=== PATIENT | female | born 1950 | race Caucasian/White ===

== ENCOUNTER → 2017-04-26 07:20 | Outpatient (CLI) | payer MEDICARE, OTHER, SELFPAY ==
--- NOTE | 2017-04-26 07:23 | RAD_ITS ---
STUDY: X-RAY - ESOPHAGUS (BARIUM SWALLOW) WITH FLUOROSCOPY REASON FOR EXAM: Female, 66 years old. Heartburn. History of gastroesophageal reflux. TECHNIQUE: 16 view(s) of the esophagus were obtained following swallowing of barium. FLUOROSCOPY TIME (if supplied): (0:30) minutes/seconds COMPARISON: None. FINDINGS: There is no demonstrated esophageal foreign body. There is no demonstrated stricture or mucosal abnormality. There is a small hiatal hernia of the fundus of the stomach. There is no evidence of gastroesophageal reflux at this time. The patient ingested a 12 mm tablet of barium. The tablet is trapped at the gastroesophageal junction. There is atherosclerotic tortuosity of the aortic arch and descending thoracic aorta. Normal visualized pulmonary parenchyma. There are diffuse degenerative changes of the visualized thoracic spine. RAD/Esophagus Only IMPRESSION: Small sliding hiatal hernia without gastroesophageal reflux. The 12 mm tablet of barium is trapped at the gastroesophageal junction. Electronically Signed: Tyrell Kuhn MD at 8:19 EDT Tel [phone], Service support ,
== END ==
PROVIDERS: Family Provider Family Medicine; PCP Family Medicine; Visit Provider Otolaryngology
DX: K21.9 Gastro-esophageal reflux disease without esophagitis (principal)
CPT/HCPCS: 74220

== ENCOUNTER → 2017-10-19 13:05 | Outpatient (CLI) | payer MEDICARE, OTHER, SELFPAY ==
--- NOTE | 2017-10-19 14:43 | NEURO ---
NCS and/or EMG Patient Report Ordering Doctor: Uday Olivares DATE OF SERVICE: 10/19/17 Charo Ayala is a 67-year-old female presents for electrodiagnostic testing of the right upper limb. She reports pain at the base of the right thumb and around the wrist. Electrodiagnostic findings: Right median motor nerve demonstrates normal distal latency, amplitude and conduction velocity. Normal right ulnar motor response, including conduction across the elbow. Normal right median and ulnar f wave. Sensory responses within normal limits. Needle EMG testing shows no evidence of denervation with normal motor unit action potentials. Electrodiagnostic impression: This is a normal electrodiagnostic study of the right upper limb. There is no electrodiagnostic evidence for peripheral neuropathy or cervical radiculopathy. If there are any further questions, please do not hesitate to contact me.
== END ==
PROVIDERS: Family Provider Family Medicine; PCP Family Medicine; Visit Provider Orthopaedic Surgery
DX: R20.2 Paresthesia of skin (principal)
CPT/HCPCS: 95886; 95910

== ENCOUNTER → 2018-03-31 07:52 | Outpatient (CLI) | payer MEDICARE, OTHER, SELFPAY ==
[2018-01-16 08:42] VITALS: BMI 39.1
--- NOTE | 2018-03-31 07:56 | BI_ITS ---
MAMMOGRAPHY - BILATERAL SCREENING REASON FOR EXAM: Female, 67 years old. Routine annual screening examination. PERTINENT HISTORY: Non-contributory. TECHNIQUE: Digital bilateral breast deidre (3D mammographic acquisition) in the CC and MLO projections. 2-D mediolateral oblique (MLO) and craniocaudad (CC) views of both breasts were obtained. CAD: Full Field Digital Mammography with Computer Added Detection was performed. COMPARISON: Comparison is made with prior study dated February 10, 2017 and January 22, 2016. FINDINGS: Breast Composition: The breasts are heterogeneously dense, which may obscure small masses. There are no dominant masses or suspicious calcifications. No other significant abnormalities are identified. There has been no significant change since the prior study. BI/SCREENING MAMM (CAD), BILAT IMPRESSION: Stable bilateral screening mammogram. Yearly follow-up mammogram recommended. (A) ASSESSMENT CATEGORY: BIRADS Category 1: Negative. A letter regarding these results will be sent to the patient by the facility within 30 days. Approximately 10% of breast cancers are not detected by mammography. A normal mammogram should not delay biopsy of a clinically suspicious abnormality. [id number] Electronically Signed: Tyrell Kuhn MD at 9:01 EST , Service support ,
== END ==
PROVIDERS: Family Provider Family Medicine; PCP Family Medicine; Visit Provider Family Medicine
DX: Z12.31 Encounter for screening mammogram for malignant neoplasm of breast (principal)
CPT/HCPCS: 77063; 77067

== ENCOUNTER → 2018-08-15 16:44 | Outpatient (CLI) | payer MEDICARE, OTHER, SELFPAY ==
[2018-08-15 14:09] VITALS: BMI 39.1
[2018-08-20 13:53] LABS: HPV APTIMA, High Risk Negative (Negative)
== END ==
PROVIDERS: Family Provider Family Medicine; PCP Family Medicine; Referring Provider Nurse Practitioner Women's Health; Visit Provider Nurse Practitioner Women's Health
DX: Z12.4 Encounter for screening for malignant neoplasm of cervix (principal)
CPT/HCPCS: 87624; 88175; G0145

== ENCOUNTER → 2018-11-15 08:54 | Outpatient (CLI) | payer MEDICARE, OTHER, SELFPAY ==
[2018-08-15 14:09] VITALS: BMI 39.1
--- NOTE | 2018-11-15 10:18 | NEURO ---
NCS and/or EMG Patient Report Ordering Doctor: Heber Porter DATE OF SERVICE: 11/15/18 Charo Ayala is a 68-year-old female who presents for electrodiagnostic testing of the left upper limb. She reports numbness and tingling in the left hand, progressively worsening over the past month. Electrodiagnostic findings: Left median motor nerve demonstrates prolonged distal latency with normal amplitude and conduction velocity. Normal left ulnar motor response. Normal median ulnar F waves. Prolonged median sensory latency at the wrist. On needle EMG, all muscles tested in the left upper limb showed no evidence of denervation with normal motor unit action potentials. Next Electrodiagnostic impression: This is an abnormal study in the left upper limb. 1. Electrodiagnostic findings demonstrate left-sided median mononeuropathy. This is consistent with a mild left carpal tunnel syndrome. If there are any further questions, please do not hesitate to contact me.
== END ==
PROVIDERS: Family Provider Family Medicine; PCP Family Medicine; Referring Provider Specialist; Visit Provider Specialist
DX: R20.2 Paresthesia of skin (principal)
CPT/HCPCS: 95886; 95910

== ENCOUNTER 2018-11-29 06:49 | Day surgery (SDC) | payer MEDICARE, OTHER, SELFPAY ==
[2018-08-15 14:09] VITALS: BMI 39.1
--- NOTE | 2018-11-23 18:25 | HP.PCM_ITS ---
History and Physical Patient Name: Charo Ayala : 1950 From: DARBY LEDBETTER PA-C DATE OF SURGERY: 11/29/2018 SCHEDULED PROCEDURE: Left carpometacarpal arthroplasty and left carpal tunnel release HISTORY OF PRESENT ILLNESS: Preoperative history and physical exam was performed on November 23, 2018. This is a 68-year-old female who has been having ongoing pain in bilateral hands for approximately 2 years. Patient has had numbness and tingling in her left hand for the past 1 year. She has tried physical therapy and bracing. She continues to have numbness and tingling. She also has pain at the base of the first CMC joint. Pain can reach as high as a 9/10 with activity. Pain is increased with gripping activities, mopping, and weed eating. She does continue to have numbness and tingling in bilateral hands. She has tried cortisone injections. 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 Left EMG also reveals carpal tunnel syndrome. After failing conservative measures and discussing treatment options with Dr. Heber Porter, the patient does wish to proceed with a left carpometacarpal arthroplasty and left carpal tunnel release. Patient has medical history pertinent for sleep apnea and acid reflux. She currently denies chest pain, shortness of breath, fevers chills, or recent infections. REVIEW OF SYSTEMS: ROS: Const: Denies anorexia, anxiety, change in appetite, fever, hard of hearing, vision problems and weight change. CV: Denies chest pain, heart murmur, irregular heartbeat and peripheral vascular disease. Resp: Reports sleep apnea, but denies asthma, cough, pneumonia, SOB, tuberculosis and wheezing. GI: Reports heartburn, but denies constipation, diarrhea, difficulty swallowing, nausea, bloody stools and vomiting. : Urinary: denies incontinence. Musculo: Denies leg swelling, limp, trouble walking and weakness. Skin: Denies Raynaud's, history of shingles and tattoo. Neuro: Reports numbness/tingling in her hands, but denies ambulatory dysfunction, dizziness and tremor Psych: Denies anxiety, depression, insomnia, mental illness and stress. Donald/Lymph: Reports bleeding/bruising tendency, but denies anemia and past transfusion. Reviewed, no changes. PAST MEDICAL HISTORY: Advance Care Plan: Other Directive, LIVING WILL Effective Date: 02/11/2015 Other Directive, POA Effective Date: 02/11/2015 PMH: Medical Problems: Sleep Apnea, Acid Reflux Accidents: Fracture - RIGHT WRIST Surgical Hx: Tonsillectomy - [facility] Section - X2 LT Knee Arthroscopy - (05/08/2009) [facility] @ [facility] LT Uni-Knee - (09/15/2010) [facility]OR @ [facility] RT Knee Arthroscopy - (12/13/2013) [email or web address] Mole Removed - (2013) CANCER Knee Replacement RT - (10/28/2015) [email or web address] Anesthesia Complications: None Assistive Devices: Glasses Reviewed, no changes. SOCIAL HISTORY: SH: Marital: .Occupation: Retired.Work Status: Retired.Hand Dominance: Right- Handed. Personal Habits: Smoking: Patient is a former smoker.Cigarette Use: Former.Alcohol: Occasionally.Drug Use: Denies Use.Enjoy Exercising: Exercises 1- 3 X/Week. Reviewed, no changes. VITALS: Ht: 62 Wt: 210lb Wt k.256 BMI: 38.4 BP: 130/74 Pulse: 70 Resp: 16 T: 98.2 T: 36.8C ALLERGIES: Ampicillin MEDICATIONS: Oxycodone HCL 5 mg 1 by mouth every 6 hours, Omeprazole 40 mg 1po qday, Melatonin 10 mg 2po qhs, Escitalopram Oxalate 20 mg 1po qday, Meloxicam 7.5 mg 1po qday, Temazepam 30 mg 1po qday PRE-OP EXAM: General appearance:NORMAL Other: Eyes: Conjunctivae and lids: NORMAL Pupils: ERR Ears, Nose, Mouth, and Throat: NORMAL Other: Inspection of lips, teeth and gums: NORMAL Other: Neck: Examination of neck: no masses noted. Respiratory: Assessment of respiratory effort: NORMAL Other: Auscultation of lungs: clear to auscultation no wheezes, rhonchi or rales. Cardiovascular: Auscultation of heart: regular rate and rhythm, no murmurs, gallops or rubs. Gastrointestinal: Exam of abdomen: soft, nontender, nondistended bowel sounds present. PHYSICAL EXAMINATION: Left hand is cool to touch without erythema or signs of infection. Patient has tenderness to palpation at the base of the first CMC joint left thumb. She does get crepitus with positive pain with a grind test on the left. Patient has positive Phalen's and carpal compression on the left. 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 IMAGING STUDIES: X-rays of the left wrist reveals severe first CMC joint osteoarthritis with joint space narrowing, subchondral sclerosis, marginal osteophyte formation and radial subluxation of the joint. Left is worse than the right. EMG nerve conduction study exam also reveals left carpal tunnel syndrome IMPRESSION: 1. Left thumb CMC joint osteoarthritis 2. Left carpal tunnel syndrome 3. Right thumb CMC joint osteoarthritis 4. Right hand paresthesias 5. Sleep apnea with use of CPAP machine 6. Acid reflux PLAN: Dr. Heber Porter did discuss and review with the patient all treatment options including surgical versus nonsurgical options. Patient does wish to proceed with the above-stated procedure. Potential risks, benefits, and complications of the procedure were discussed in detail including but not limited to , infection, nerve and blood vessel damage, persistent pain, numbness, tingling, paresthesias, blood clot, pulmonary embolism, and requirement for possible further surgery. The patient expressed full understanding and has no further questions for the doctor. Patient does agree to proceed with the above-stated procedure and has signed the surgery consent form. This dictation was created using voice recognition software. Phonetic and/or grammatical errors may exist. ___ I have re-examined the patient. There are no clinical changes since date of exam. ___ See progress notes for changes. ___ Dictated on admission Date: Time: Signature:
[2018-11-29] VITALS (13 sets, daily range): BP systolic 97–134; BP diastolic 55–75; PULSE 70–110; RESP 16; TEMP 36–36.6; O2SAT 91–96; BMI 39.1
[2018-11-29] MEDS: Lactated Ringers 1,000 ML 100 ML IV (08:01)
[2018-11-29] MEDS: Cefazolin 2 GM in 0.9% Normal Saline 100 ML IV (08:57)
[2018-11-29] MEDS: Bupivacaine Mpf 0.5% 30 ML VIAL (10:04)
--- NOTE | 2018-11-29 10:09 | PCM.OPRPT ---
Report of Operation Date of Procedure: 11/29/18 Pre-Operative Diagnosis: Left first CMC osteoarthritis. Left carpal tunnel syndrome Post-Operative Diagnosis: Left first CMC osteoarthritis. Left carpal tunnel syndrome Surgery/Procedure Performed:: 1. Left first CMC resection arthroplasty. 2. Left FCR tendon transfer. 3. Left carpal tunnel release Description of Surgical Findings:: Complete release transverse carpal ligament, well reconstructed ligaments. clean up supervisor: Mini Prather Type of Anesthesia:: General Anesthesiologist: Arun Bella Special Medications: Ancef Specimen's removed: Bony resection Estimated Blood Loss (mL): 10 Fluids Replaced: 800 mL crystalloid Description of Procedure: Operative indications: 68-year-old f failed conservative measures for first CMC osteoarthritis and carpal tunnel syndrome. X-rays show joint space narrowing, subluxation of the joint and osteophyte formation as well as subchondral sclerosis. We discussed surgical intervention including first CMC arthroplasty with tendon transfer and carpal tunnel release. Risks and benefits discussed included but were not limited to blood loss, DVTs, PEs, neurovascular damage, infection, general risk of anesthesia, hematoma and weakness. Patient demonstrated understanding was able to sign informed consent. Procedure: On the date of the procedure the patient's L hand was marked in the preoperative area. Patient was taken back to the operating room where they were transferred to the table in the supine position. Anesthesia assumed control the C-spine airway and remained in control throughout the remainder of the procedure. All bony prominences were identified and well-padded tourniquet was placed on the L upper extremity. The operative extremity was prepped in a sterile fashion. Surgeon then scrubbed Upon reentering the room, the right upper extremity was draped in a standard orthopedic fashion. Incision was marked out. Timeout was called everyone agreed upon the side, the site, the procedure to be performed, patient identity and antibiotics given. Esmarch bandage was used to exsanguinate the extremity. Tourniquet was placed up to 250 mmHg. Incision was taken down through skin. Blunt dissection was taken through subcutaneous tissues. Superficial nerve was identified and retracted out of the way. Radial artery was identified and retracted out of the way. Once we are able to identify the joint arthrotomy was made and the trapezium was identified. Once the trapezium was identified dorsal and volar aspects were debrided of connective tissue. Saw was then used to make a cruciform cut in an osteotomy was completed with the osteotome. Once this was done a rondure was used to remove the bone fragments and the trapezium in its entirety. Our attention was then directed towards the carpal tunnel release where the incision was marked out. Incision was taken at the skin subtenons tissue fat down to fascia. Fascia was then lightly tethered until the median nerve was visible. A [place] was placed proximally and distally, and then scissors were placed proximally and distally to release the transverse carpal ligament. During the release the others were never completely closed. The [place] was then placed proximally and distally once more to verify the transverse carpal ligament had been adequately released. The wound was then copiously irrigated out with normal saline. Wound was then closed using 3-0 nylon suture. Attention was then directed towards the FCR to harvest. FCR was identified in the wrist and FiberWire suture was placed around it passed up into the forearm. We then made a small incision in the form and brought the FiberWire through. Transection of the FCR was done in the forearm. The FCR tendon was then fed down to the wrist and into the joint in the previous incision. Vicryl suture was then used to tag the end of the graft for transfer. Attention was then directed towards the proximal end of the first metacarpal. A bur was used to make a bone tunnel for tendon transfer. Loop suture was then passed through the upper holes and used to pull the graft through the bone tunnel. Once this was done a sling was made and 3-0 Ethibond suture was used to tie the tendon on itself. Once the tendon was appropriately secured anchovy was made with the remainder of the tendon. This was sewn down into the joint using 3-0 Ethibond. Copious amounts of irrigation were used throughout the procedure and prior to closure of the wound. Arthrotomy was closed with 2-0 Vicryl skin was closed with 2-0 Vicryl and 4-0 Monocryl with Steri-Strips. Xeroform dressing was placed. Sterile dressing was placed. Compressive dressing was placed. Tourniquet was let down. Well-padded splint was then placed with the thumb in abduction. Patient was then awakened by anesthesia and transferred to the PACU for recovery. Postoperative plan: Patient will remain in the splint for 2 weeks. 2 weeks we will check the incision and remove any sutures or tails. He will be transferred to a cast and abduction at that time. They will then follow standard postoperative protocol for first CMC arthroplasty with Occupational Therapy. - Complications No intraoperative complications - Admit VTE Documentation VTE Present on Admission: No VTE Mechan Device Prophylaxis: SCD's VTE Pharm Prophylaxis ordered?: No Reason prophylaxis not ordered:: Treatment Not Indicated
[2018-11-29] MEDS: Ketorolac 15 MG/ML Vial IV (11:29)
== END 2018-11-29 12:14 | disposition home or self-care (01) ==
LOC: SDC 06:49 → AC 06:50
PROVIDERS: Family Provider Family Medicine; PCP Family Medicine; Referring Provider Specialist; Visit Provider Specialist
PROC: (CPT 25447; principal; 2018-11-29 08:45)
DX: G56.02 Carpal tunnel syndrome, left upper limb (principal); M18.0 Bilateral primary osteoarthritis of first carpometacarpal joints; G47.30 Sleep apnea, unspecified; K21.9 Gastro-esophageal reflux disease without esophagitis; F32.9 Major depressive disorder, single episode, unspecified; Z78.0 Asymptomatic menopausal state; Z85.828 Personal history of other malignant neoplasm of skin; Z87.891 Personal history of nicotine dependence
CPT/HCPCS: 25310; 25447; 64417; 64721; J7120; A4216; J2405

== ENCOUNTER 2019-03-06 13:00 | Outpatient (RCR) | payer MEDICARE, OTHER, SELFPAY ==
[2018-11-29 07:26] VITALS: BMI 39.1
--- NOTE | 2018-12-25 13:28 | HP.OTEVAL_ITS ---
Patient's Visit Information TINA LINARES is a 68 year old F, referred to Occupational Therapy by Heber Porter MD, with a diagnosis of unil. 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 Date of Evaluation: 12/25/18 Occupational Therapist: Yocasta Malave, DONNAR/Nettie, CHT - Subjective Subjective: This 68 year old female was seen for OT eval following a left CMC arthroplasty and left CTR- pt states sx was on . has ordered OT for orthosis aramis. eval and tx following left cmc arthroplasty- pt states she struggled with left thumb pain for two years before she decided on having sx. She states due to the sx limitations she is in need of assist with all ADLS and IADLS at this time. Family is helping but pt would like to [facility] 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 Household: Vacuum, Sweep/mop, Laundry - Pain left thumb 0 Pain Intensity Range: 0, 4 - ROM Wrist: right 60/45 left 45/35 CMC: right 15 left 15 MP: right 55 left 30 IP: right 55 left 50 - Strength Tip Inserter: right 40# left NT Lateral Pinch: right 12# left NT Tripod Pinch: right 9# left NT - Edema Other: Right IP 6.8 left 7.5 - Sensation Sensation Comments: denies- reports CTS went away following sx- pt very happy - Quick DASH-Disab of Arm,Shoulder& Hand Quick DASH Score: 61.3625 - Goals Goal:100% adherence to protocol: Yes Comment: CMC arthroplasty Goal:Daily scar massage when approriate: Yes Goal:ROM equal to unaffected hand: Yes Goal:Tip Inserter/Pinch strength at least 75% of unaffected hand: Yes Goal:No pain with affected hand use: Yes Goal:Full use of affected hand in daily activities including: Yes Goal:Decrease scar hypersensitivity: Yes - Rehabilitation General Assessment: Pt s/p 4 left CMC arthroplasty and left CTR. Due to healing structure pt is limited with daily occupations as bathing/dressing and meal prep. pt demo need of skilled OT services 1-2x week for 4-6 weeks to return pt to PLOF. Today therapist Aramsi. custom orthosis to provide support and protection to let CMC while pt is healing. Therapist ed. pt in use and care as well as skin care and precautions. Therapist ed. pt on tendon glide ex, supported CMC MP and IP flex, and short arch wrist AROM ex. Pt demo understanding of ex and was given handout- pt agree to POC. Rehabilitation Potential: Excellent - Anticipated Interventions Anticipated Interventions: A/AAROM/PROM, Strengthening, Edema Control, Scar Care, Desensitization, Modalities, Orthoses, Joint Protection/Energy Conservation, Ergonomic Education - Visit Plan Frequency: 1-2x /Week Duration: 6 Weeks TEXT: Thank you for the opportunity to evaluate your patient. For Medicare and Medicare HMO plans, please review the plan of care and approve it. It will need to be FAXED BACK to us at [phone] for Medicare purposes. Please let me know if there are questions or concerns regarding this plan of care. Physician Signature: Date:
--- NOTE | 2019-01-22 09:10 | OTREVAL_ITS ---
Heber Porter MD, It has been my pleasure to treat TINA LINARES over the last 5 visits for unil. 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 Please see the progress note below for an update on the occupational therapy plan of care! Subjective: pt states she is doing well- states she has noticed some soreness at IP ulnar side- Objective/Function: left IP 55. MP 35. CMC 15. pt demo ROM WFL. 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 Anticipated Interventions Anticipated Interventions: A/AAROM/PROM, Strengthening, Edema Control, Scar Care, Desensitization, Modalities, Orthoses, Joint Protection/Energy Conservation, Ergonomic Education Please do not hesitate to contact me at [phone] by phone or if you have questions or concerns regarding this new plan of care! Sincerely, Yocasta Malave, OTR/L, CHT
--- NOTE | 2019-03-06 14:04 | HP.OTDCSUM ---
HP - OT D/C Summary It has been my pleasure to treat TINA LINARES under orders from Heber Porter MD, for the diagnosis of unil. 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 Please see the following information for a summary of their discharge status. - Overall Improvement % Improvement: 100 - Objective Objective/Function: pt xiomara wt. well - Goals Patient Goals: Regain Mobility, Regain Strength, Use Hand/Wrist/Arm Normally Again, Be More Independent in ADLS Goal:100% adherence to protocol: Yes Goal:Daily scar massage when approriate: Yes Goal:ROM equal to unaffected hand: Yes Goal:Application Support Administrator/Pinch strength at least 75% of unaffected hand: Yes Goal:No pain with affected hand use: Yes Goal:Full use of affected hand in daily activities including: Yes Goal:Decrease scar hypersensitivity: Yes - Plan Plan: cont with BTE and UBE - D/C Information Discharge Comments: This pt was seen for 11 visits following a CMC arthroplasty. pt progressed well with therapy and has met all OT goals. Pt is d/c at this time. If there are questions or concerns regarding this patient's occupational therapy, please fell free to call me at [phone]. Thank you for the referral of this patient. Sincerely, Yocasta Malave, OTR/L, CHT
== END 2019-03-06 19:00 | disposition home or self-care (01) ==
LOC: OT 13:00
PROVIDERS: Family Provider Family Medicine; PCP Family Medicine; Referring Provider Specialist; Visit Provider Specialist
DX: M18.12 Unilateral primary osteoarthritis of first carpometacarpal joint, left hand (principal)
CPT/HCPCS: 97035; 97110; 97140; 97166; 97530; 97760

== ENCOUNTER → 2019-04-02 10:12 | Outpatient (CLI) | payer MEDICARE, OTHER, SELFPAY ==
[2019-01-28 10:18] VITALS: BMI 39.1
[2019-03-28 09:09] VITALS: BMI 39.1
--- NOTE | 2019-04-02 10:14 | BI_ITS ---
MAMMOGRAPHY - BILATERAL SCREENING REASON FOR EXAM: Female, 68 years old. Routine annual screening examination. PERTINENT HISTORY: No family history BILATERAL DIGITAL MAMMOGRAM WITH TOMOSYNTHESIS: Mediolateraloblique and craniocaudal views demonstrate no evidence of dominant parenchymal masses. A stable cluster of microcalcification is noted scattered over the lateral aspects of both breasts more pronounced on the left this was seen previously and is unchanged. Most of these are secretory type calcifications. No architectural distortion is seen. No evidence of skin thickening is identified. There has been no significant change since 03/31/2018. Breast Density: The breast tissue is extremely dense which may lower the sensitivity of mammography. CAD was used to assist in final assessment. IMPRESSION: NORMAL MAMMOGRAM BILATERALLY. FINAL ASSESSMENT: BIRAD 1 (NEGATIVE) YEARLY MAMMOGRAM RECOMMENDED Electronically Signed: Den Mccain, at 17:53 EST Tel , Service support , BI/SCREEN MAMM (CAD) W/JUSTUS LAYTON
== END ==
PROVIDERS: PCP Family Medicine; Referring Provider Family Medicine; Visit Provider Family Medicine
DX: Z12.31 Encounter for screening mammogram for malignant neoplasm of breast (principal)
CPT/HCPCS: 77063; 77067

== ENCOUNTER → 2019-11-19 09:11 | Outpatient (CLI) | payer MEDICARE, OTHER, SELFPAY ==
[2019-03-28 09:09] VITALS: BMI 39.1
--- NOTE | 2019-11-19 09:26 | EKG12_ITS ---
Test Reason : PRE OP Blood Pressure : / mmHG Vent. Rate : 067 BPM Atrial Rate : 067 BPM P-R Int : 154 ms QRS Dur : 080 ms QT Int : 400 ms P-R-T Axes : 026 027 046 degrees QTc Int : 422 ms Normal sinus rhythm Normal ECG Confirmed by ERASMO HEAD, TROY ([id number]), loan expeditor MICHAEL KOO ([id number]) on 11/20/2019 1:09:21 PM Referred By: Heidy Pendleton Confirmed By:TROY ZIMMERMAN MD
== END ==
PROVIDERS: PCP Family Medicine; Referring Provider Registered Nurse; Visit Provider Registered Nurse
DX: Z01.818 Encounter for other preprocedural examination (principal)
CPT/HCPCS: 93005

== ENCOUNTER 2019-12-12 10:53 | Day surgery (SDC) | payer MEDICARE, OTHER, SELFPAY ==
[2019-03-28 09:09] VITALS: BMI 39.1
--- NOTE | 2019-11-18 14:57 | HP.PCM_ITS ---
History and Physical History and Physical Patient Name: Charo Ayala : 1950 From: PRINCESS ZAMUDIO NP DATE OF SURGERY: 12/12/2019 SCHEDULED PROCEDURE: Right thumb carpometacarpal arthroplasty HISTORY OF PRESENT ILLNESS: Preoperative history and physical exam was performed on November 14, 2019. This is a 69-year-old female who has been having ongoing right hand pain for approximately 3 years. The pain in the right hand is increased with gripping and fine motor skills. She reports weakness in the right hand. The patient reports pain at the base of the right thumb. The patient underwent a left thumb carpometacarpal arthroplasty in 2019. She is pleased with the results. Previous conservative measures attempted include physical therapy, bracing and corticosteroid injections. The patient has a medical history pertinent for gastroesophageal reflux disease, depression and sleep apnea with the use of a CPAP. She denies chest pain, fevers, chills, shortness of breath, difficulty breathing or recent infections. After failing conservative measures and discussing treatment options with Dr. Heber Porter the patient does wish to proceed with a right carpometacarpal arthroplasty. REVIEW OF SYSTEMS: ROS: Const: Denies anorexia, anxiety, change in appetite, fever, hard of hearing, vision problems and weight change. CV: Denies chest pain, heart murmur, irregular heartbeat and peripheral vascular disease. Resp: Reports sleep apnea, but denies asthma, cough, pneumonia, SOB, tuberculosis and wheezing. GI: Reports heartburn, but denies constipation, diarrhea, difficulty swallowing, nausea, bloody stools and vomiting. : Urinary: denies incontinence. Musculo: Denies leg swelling, limp, trouble walking and weakness. Skin: Denies Raynaud's, history of shingles and tattoo. Neuro: Reports numbness/tingling in her hands, but denies ambulatory dysfunction, dizziness and tremor Psych: Denies anxiety, depression, insomnia, mental illness and stress. Donald/Lymph: Reports bleeding/bruising tendency, but denies anemia and past transfusion. Reviewed, no changes. PAST MEDICAL HISTORY: Advance Care Plan: Other Directive, LIVING WILL Effective Date: 02/11/2015 Other Directive, POA Effective Date: 02/11/2015 PMH: Medical Problems: Sleep Apnea, Acid Reflux, Depression Accidents: Fracture - RIGHT WRIST Surgical Hx: Tonsillectomy - [facility] Section - X2 LT Knee Arthroscopy - (05/08/2009) FRANCESCO @ [facility] LT Uni-Knee - (09/15/2010) THOR @ [facility] RT Knee Arthroscopy - (12/13/2013) [email or web address] Mole Removed - (2013) CANCER Knee Replacement RT - (10/28/2015) [email or web address] RT Thumb Arthoplasty W/LT CTR - (11/29/2018) SAW @ [facility] Bilat Cataract - (06/2019) Dr. Rivera Anesthesia Complications: Breathing Issues - (2018) Assistive Devices: Glasses, Cpap Reviewed and updated. SOCIAL HISTORY: SH: Marital: .Occupation: Retired.Work Status: Retired.Hand Dominance: Right- Handed. Personal Habits: Tobacco Use: Patient is a former smoker.Cigarette Use: Former.Alcohol: Occasionally.Drug Use: Denies Use.Enjoy Exercising: Exercises 1- 3 X/Week. Reviewed, no changes. VITALS: Ht: 62 Wt: 212lb Wt k.163 BMI: 38.8 BP: 128/85 Pulse: 70 Resp: 16 T: 96.6 T: 35.9C ALLERGIES: Ampicillin MEDICATIONS: Hydrocodone-Acetaminophen 5-325 mg 1-2 by mouth q6 hours as needed pain, Tramadol HCL 50 mg 1-2 by mouth every 6 hours as needed pain, Melatonin 10 mg 2po qhs, Escitalopram Oxalate 20 mg 1po qday, Meloxicam 7.5 mg 1po qday, Temazepam 30 mg 1po qday, Advil PM 200-25 mg as needed, Multi Vitamin one po daily, Stool Softener uad, Bio Cleanse uad PRE-OP EXAM: General appearance:NORMAL Other: Eyes: Conjunctivae and lids: NORMAL Pupils: ERR Ears, Nose, Mouth, and Throat: NORMAL Other: Inspection of lips, teeth and gums: NORMAL Other: Respiratory: Assessment of respiratory effort: NORMAL Other: Auscultation of lungs: clear to auscultation no wheezes, rhonchi or rales. Cardiovascular: Auscultation of heart: regular rate and rhythm, no murmurs, gallops or rubs. Gastrointestinal: Exam of abdomen: soft, nontender, nondistended bowel sounds present. Neurological: see below Psychiatric: Orientation to time, place and person: NORMAL Other: Mood and affect: NORMAL Other: PHYSICAL EXAMINATION: Right hand is cool to touch without erythema or signs of infection. Tenderness to palpation at the base of the first CMC joint of the right thumb. Crepitus and pain with grind test on the right. Decreased wire harness assembler and pain with pinching. Sales And Marketing Representative strength 4/5. Negative Phalen's. Negative Tinel's. Capillary refill less than 3 seconds. Radial pulse palpable. IMAGING STUDIES: 3 views of right hand/fingers including PA, oblique and lateral obtained on November 05, 2019 reviewed reveals stable well aligned carpal bones. Stable well aligned metacarpal bones and phalangeal bones. At the base of the first digit the CMC joint is severely narrowed with appreciable subluxation consistent with severe first CMC osteoarthritis. No acute fractures. No lytic or blastic lesions. IMPRESSION: 1. Right thumb CMC joint osteoarthritis 2. Gastroesophageal reflux disease 3. Sleep apnea with the use of the CPAP 4. Depression PLAN: Dr. Heber Porter did discuss and review with the patient all treatment options including surgical versus nonsurgical. The patient does wish to proceed with the above-stated procedure. Potential risk, benefits and complications of the procedure were discussed in detail including but not limited to , infection, nerve and blood vessel damage, persistent pain, numbness, tingling, paresthesia, blood clot, pulmonary embolism and requirement for possible further surgery. The patient expressed full understanding and has no further questions for the doctor. The patient does agree to proceed with the above-stated procedure and has signed the surgery consent form. The patient was given a prescription for [place] at her preoperative visit. Discussed with the patient the risks associated with the COVID-19 virus including the risk of exposure while at the hospital. The patient was reassured local hospitals have low infection rates and taken all necessary precautions to limit patient exposure to COVID-19. Limiting the patient's time in the hospital may decrease their exposure to COVID-19. The patient was notified that we will need to comply with any screening or testing the hospital wishes to perform and that surgery may be delayed for any positive test results. This dictation was created using voice recognition software. Phonetic and/or grammatical errors may exist. ___ I have re-examined the patient. There are no clinical changes since date of exam. ___ See progress notes for changes. ___ Dictated on admission Date: Time: Signature:
[2019-11-19 09:46] LABS: Absolute Lymphocyte Count 1.71 X10^3/uL (0.83-4.51); Basophil# 0.05 X10^3/uL; Basophil% 1.2 % (0-1); Eosinophil# 0.06 X10^3/uL; Eosinophils% 1.4 % (0-5); Hematocrit 44.2 % (37-47); Hemoglobin 14.5 g/dL (12.0-15.0); Lymphocyte # 1.71 X10^3/ul (4.0); Lymphocyte % 40.2 % (19-41); Mean Corp Hgb Conc 32.8 g/dL (32-36); Mean Corpuscular Hgb 32.2 pg (27.0-32.0); Mean Corpuscular Volume 98.2 fL (81-99); Mean Platelet Vol. 9.8 fl (6.2-12.0); Monocyte% 9.4 % (0-10); NRBC Flagged by Analyzer 0 % (0-5); Neutrophil # 2.03 X10^3/uL (2.7-7.7); Neutrophil % 47.8 % (47-70); Platelet Count 241 K/mm3 (150-450); RBC Distribution Width CV 12.4 % (11.6-14.6); White Blood Count 4.3 K/mm3 (4.4-11.0)
[2019-11-19 10:12] LABS: Anion Gap 3 (5-15); BUN 11 mg/dL (7-18); BUN/Creat Ratio 12.3 RATIO (10-20); Calcium,Total 9.1 mg/dL (8.5-10.1); Chloride 106 mmol/L (98-107); Creatinine, Serum 0.89 mg/dL (0.55-1.02); EST Glomerular Filtration Rate 66 mL/min (>60); Est Glom Filt Rate - Afr Amer 80 mL/min (>60); Glucose 103 mg/dL (74-106); Potassium 4.2 mmol/L (3.5-5.1); Sodium Level 139 mmol/L (136-145)
[2019-12-12 11:22] VITALS: BP 141/86; PULSE 73; RESP 16; TEMP 37.1; O2SAT 98; BMI 38.3
[2019-12-12] MEDS: Lactated Ringers 1,000 ML 100 ML IV (11:34)
[2019-12-12] MEDS: Cefazolin 2 GM in 0.9% Normal Saline 100 ML IV (13:25)
--- NOTE | 2019-12-12 14:41 | OP.PCM_ITS ---
Report of Operation Date of Procedure: 12/12/19 Pre-Operative Diagnosis: Right first CMC osteoarthritis Post-Operative Diagnosis: Right first CMC osteoarthritis Surgery/Procedure Performed:: 1. Right first CMC resection arthroplasty. 2. Right FCR tendon transfer Description of Surgical Findings:: Complete resection of the trapezium. farm implement engine mechanic: Travis Pineda Type of Anesthesia:: General/Regional Anesthesiologist: Deejay Sanchez Special Medications: 2 g Ancef Specimen's removed: Trapezium Estimated Blood Loss (mL): 15 Fluids Replaced: 800 ML crystalloid Description of Procedure: Operative indications: 69-year-old F failed conservative measures for first CMC osteoarthritis. X-rays show joint space narrowing, subluxation of the joint and osteophyte formation as well as subchondral sclerosis. We discussed surgical intervention including first CMC arthroplasty with tendon transfer. Risks and benefits discussed included but were not limited to blood loss, DVTs, PEs, neurovascular damage, infection, general risk of anesthesia, hematoma and weakness. Patient demonstrated understanding was able to sign informed consent. Procedure: On the date of the procedure the patient's R hand was marked in the preoperative area. Patient was taken back to the operating room where they were transferred to the table in the supine position. Anesthesia assumed control the C-spine airway and remained in control throughout the remainder of the procedure. All bony prominences were identified and well-padded tourniquet was placed on the R upper extremity. The operative extremity was prepped in a sterile fashion. Surgeon then scrubbed Upon reentering the room, the right upper extremity was draped in a standard orthopedic fashion. Incision was marked out. Timeout was called everyone agreed upon the side, the site, the procedure to be performed, patient identity and antibiotics given. Esmarch bandage was used to exsanguinate the extremity. Tourniquet was placed up to 250 mmHg. Incision was taken down through skin. Blunt dissection was taken through subcutaneous tissues. Superficial nerve was identified and retracted out of the way. Radial artery was identified and retracted out of the way. Once we are able to identify the joint arthrotomy was made and the trapezium was identified. Once the trapezium was identified dorsal and volar aspects were debrided of connective tissue. Saw was then used to make a cruciform cut in an osteotomy was completed with the osteotome. Once this was done a rondure was used to remove the bone fragments and the trapezium in its entirety. Attention was then directed towards the FCR to harvest. FCR was identified in the wrist and FiberWire suture was placed around it passed up into the forearm. We then made a small incision in the form and brought the FiberWire through. Transection of the FCR was done in the forearm. The FCR tendon was then fed down to the wrist and into the joint in the previous incision. Vicryl suture was then used to tag the end of the graft for transfer. Attention was then directed towards the proximal end of the first metacarpal. A bur was used to make a bone tunnel for tendon transfer. Loop suture was then passed through the upper holes and used to pull the graft through the bone tunnel. Once this was done a sling was made and 3-0 Ethibond suture was used to tie the tendon on itself. Once the tendon was appropriately secured anchovy was made with the remainder of the tendon. This was sewn down into the joint using 3-0 Ethibond. Copious amounts of irrigation were used throughout the procedure and prior to closure of the wound. Arthrotomy was closed with 2-0 Vicryl skin was closed with 2-0 Vicryl and 4-0 Monocryl with Steri-Strips. Xeroform dressing was placed. Sterile dressing was placed. Compressive dressing was placed. Tourniquet was let down. Well-padded splint was then placed with the thumb in abduction. Patient was then awakened by anesthesia and transferred to the PACU for recovery. Postoperative plan: Patient will remain in the splint for 2 weeks. 2 weeks we will check the incision and remove any sutures or tails. He will be transferred to a cast and abduction at that time. They will then follow standard postoperative protocol for first CMC arthroplasty with Occupational Therapy. My physician instruction assistant principal played a vital role throughout this procedure. He was vital in protecting the artery. He was vital in positioning the patient. He was vitally maintain the position of the extremity during the procedure to help vital neurovascular structures. He was vital in closure and splinting under my direct supervision. His knowledge of the procedure and the anatomy aided in safe and expedient completion of the procedure. - Complications No intraoperative complications - Admit VTE Documentation VTE Present on Admission: No VTE Mechan Device Prophylaxis: SCD's VTE Pharm Prophylaxis ordered?: No Reason prophylaxis not ordered:: Treatment Not Indicated
[2019-12-12 15:00] VITALS: BP 140/76; BP 141/86; PULSE 88; RESP 14; TEMP 36.4; O2SAT 92
[2019-12-12] MEDS: Ketorolac 15 MG/ML Vial IV (15:07)
[2019-12-12 15:15] VITALS: BP 136/68; BP 141/86; PULSE 89; RESP 18; O2SAT 94
[2019-12-12 15:30] VITALS: BP 130/75; BP 141/86; PULSE 85; RESP 16; O2SAT 93
[2019-12-12 15:43] VITALS: BP 141/86; BP 145/81; PULSE 84; RESP 18; TEMP 35.9; O2SAT 97
[2019-12-12 16:45] VITALS: BP 141/86; BP 144/82; PULSE 96; RESP 18; TEMP 36.7; O2SAT 93
== END 2019-12-12 16:55 | disposition home or self-care (01) ==
LOC: SDC 10:54 → AC 10:54
PROVIDERS: Anesthesiology; Registered Nurse; PCP Family Medicine; Referring Provider Specialist; Visit Provider Specialist
PROC: (CPT 25447; principal; 2019-12-12 13:00)
DX: M18.9 Osteoarthritis of first carpometacarpal joint, unspecified (principal); K21.9 Gastro-esophageal reflux disease without esophagitis; G47.30 Sleep apnea, unspecified; F32.9 Major depressive disorder, single episode, unspecified; Z88.0 Allergy status to penicillin; Z87.891 Personal history of nicotine dependence; Z20.828 Contact with and (suspected) exposure to other viral communicable diseases
CPT/HCPCS: 25310; 25447; 64415; 76942; 36415; 80048; 85025; 87635; C9803; J7120; J2405; U0003

== ENCOUNTER 2020-02-12 15:00 | Outpatient (RCR) | payer MEDICARE, OTHER, SELFPAY ==
--- NOTE | 2020-01-07 16:29 | HP.OTEVAL_ITS ---
Patient's Visit Information TINA LINARES is a 69 year old F, referred to Occupational Therapy by Dr. Heber Porter MD, with a diagnosis of S/P R thumb CMC arthroplasty. Date of Evaluation: 01/07/20 Occupational Therapist: Shabana Iverson - Subjective Pt presents with s/p R thumb CMC arthoplasty 12/12/2019. Cast was removed this morning. Pt is feeling good. Pt reports a little sore. - ADLs Dressing: Underwear, Bra, Pants Comments: Difficulties with tasks marked Comments: No concerns noted Eating: Cut food, Butter bread Comments: Difficulty with using a knife Bathing: Handle washcloth & soap Comments: Has been using L hand Toileting: Manage clothing Comments: Has been using L hand Comments: Has been using L hand Kitchen: Chop with knife, Peel fruits & vegetables, Open jars, Open bottle caps, Ziplock bags Comments: Difficulty with items checked- has been using L hand to complete others Comments: No concerns noted Comments: Grandchildren help with yard work Miscellaneous: Write Comments: Uses L hand to complete most tasks- unable to write - Pain R hand 0 Pain Intensity Range: 3 - Objective Pt in good mood- happy to be out of cast. R surgical site intact. Slighty red and scabbed, but not open. No c/o pain noted. - ROM Wrist: L 60/90, R CMC: L 0/70, R not tested this date ROM Comments: R thumb ROM not tested this date as pt c/o mild soreness at thumb since cast being removed- plan to assess at later date. - Strength Seat Joiner Chainstitch: L 12#, R not tested this date Lateral Pinch: L 11#, R not tested this date Tripod Pinch: L 8 #, R not tested this date Tip-to-Tip Pinch: L 6#, R not tested this date Strength Comments: R not tested this date- will at later date - Sensation Sensation Comments: Denies sensation - Quick DASH-Disab of Arm,Shoulder& Hand Quick DASH Score: 50.0000 - Goals Goal:: Pt will increase R livestock sales representative/pinch strength by 5-10# in order to complete ADL/IADL tasks Goal:: Pt will increase R wrist/thumb AROM by 15-20 degrees in order to complete ADL/IADL tasks by d/c. Goal:: Pt will be able to pick up attendant small objects without dropping for increased IND with self care tasks. Goal:: Pt will demo good understsanding of scar management by d/c to decrease risk of scar adhesions. Goal:: Pt will demonstrate understanding with joint protection techniques to complete self care tasks. Goal:: Pt will be able to sign her first/last name I'ly without dropping writing tool by d/c. Goal:: Pt will demo good understanding with wearing schedule with orthotic, and be able to don/doff I'ly by d/c. - Rehabilitation General Assessment: Assessed ROM, livestock sales representative/pinch strength and fitted pt with orthotic on R hand. Education provided on joint protection techniques with pt verbalizing good understanding. Rehabilitation Potential: Good - Anticipated Interventions A/AAROM/PROM, Strengthening, Scar Care, Modalities, Orthoses, Joint Protection/Energy Conservation, Fine Motor Coord/Howard, ADL Training, Education re Skin Care and Precautions, Education re Self Massage Techniques, Education re Correct Donning Tech,Care&Wearing Sched Comp Garments, Home Program - Visit Plan Frequency: 2-3x /Week Duration: 4-6 Weeks TEXT: Thank you for the opportunity to evaluate your patient. For Medicare and Medicare HMO plans, please review the plan of care and approve it. It will need to be FAXED BACK to us at [phone] for Medicare purposes. Please let me know if there are questions or concerns regarding this plan of care. Physician Signature: Date:
--- NOTE | 2020-01-22 15:45 | HP.OTREVAL ---
Dr. Heber Porter MD, It has been my pleasure to treat TINA LINARES over the last 4 visits for S/P R thumb CMC arthroplasty. Please see the progress note below for an update on the occupational therapy plan of care! Subjective: pt arrives to session. pt states she has pain after doing something she shouldn't have -like making cookies - pt states no pain 90% of the time. Objective/Function: right CMC 20 left 25. right MP 40 left 35. right IP 30 left 45. pt demo opposition to base of right LF. pt demo with wrist RD/UD WFL and wrist flex/ext WFL. right steel erector apprentice strength 20# left steel erector apprentice is 35#. pt states she is returning to her PLOF- using her right hand for light cooking tasks. pt using orthosis at night only and will d/c that at week 8. pt demo understanding of precautions and gradual return to ADLs- therapist ed. pt to no lifting greater than 3# at this time. pt demo understanding. pt to return to on 02/04/20. pt to call and see therapist if any issues arise. Plan Plan: due to covid-19 pt will attend this session and call if she has issues to schedule another sessions or if orthosis needs adj. Goals - Goals Patient Goals: Regain Strength, Improve Fine Motor Skills, Use Hand/Wrist/Arm Normally Again, Increase ROM, Be More Independent in ADLS, Resume Former Household Responsibilities (Cooking,Cleaning,Yard, etc.) Other: Pt wants to be able to do her nails again Goal:: Pt will increase R steel erector apprentice/pinch strength by 5-10# in order to complete ADL/IADL tasks Goal:: Pt will increase R wrist/thumb AROM by 15-20 degrees in order to complete ADL/IADL tasks by d/c. Goal:: Pt will be able to bean picker small objects without dropping for increased IND with self care tasks. Goal:: Pt will demo good understsanding of scar management by d/c to decrease risk of scar adhesions. Goal:: Pt will demonstrate understanding with joint protection techniques to complete self care tasks. Goal:: Pt will be able to sign her first/last name I'ly without dropping writing tool by d/c. Goal:: Pt will demo good understanding with wearing schedule with orthotic, and be able to don/doff I'ly by d/c. Anticipated Interventions Anticipated Interventions: A/AAROM/PROM, Strengthening, Scar Care, Modalities, Orthoses, Joint Protection/Energy Conservation, Fine Motor Coord/Howard, ADL Training, Education re Skin Care and Precautions, Education re Self Massage Techniques, Education re Correct Donning Tech,Care&Wearing Sched Comp Garments, Home Program Please do not hesitate to contact me at [phone] by phone or if you have questions or concerns regarding this new plan of care! Sincerely, Yocasta Malave, OTR/L, CHT
== END 2020-02-12 19:00 | disposition home or self-care (01) ==
LOC: OT 15:00
PROVIDERS: PCP Family Medicine; Referring Provider Specialist; Visit Provider Specialist
DX: M65.332 Trigger finger, left middle finger (principal); M18.11 Unilateral primary osteoarthritis of first carpometacarpal joint, right hand
CPT/HCPCS: 97035; 97110; 97140; 97166; 97530; 97763

== ENCOUNTER → 2020-02-18 08:06 | Outpatient (CLI) | payer MEDICARE, OTHER, SELFPAY ==
[2020-02-18 09:07] LABS: Absolute Lymphocyte Count 1.66 X10^3/uL (0.83-4.51); Absolute Neutrophil Count 1.9 X10^3/uL (2.0-7.7); Basophil# 0.05 X10^3/uL; Basophil% 1.2 % (0-1); Eosinophil# 0.07 X10^3/uL; Eosinophils% 1.7 % (0-5); Hematocrit 42.4 % (37-47); Hemoglobin 14.5 g/dL (12.0-15.0); Lymphocyte # 1.66 X10^3/ul (4.0); Lymphocyte % 40.4 % (19-41); Mean Corp Hgb Conc 34.2 g/dL (32-36); Mean Corpuscular Volume 96.4 fL (81-99); Mean Platelet Vol. 9.8 fl (6.2-12.0); Monocyte# 0.39 X10^3/uL; Monocyte% 9.5 % (0-10); NRBC Flagged by Analyzer 0 % (0-5); Neutrophil # 1.93 X10^3/uL (2.7-7.7); Platelet Count 234 K/mm3 (150-450); RBC Distribution Width CV 12.5 % (11.6-14.6); RBC Distribution Width SD 44.5 fl (35.1-43.9); White Blood Count 4.1 K/mm3 (4.4-11.0)
[2020-02-18 09:40] LABS: Vitamin D,25 Hydroxy 32.8 ng/mL
[2020-02-18 10:02] LABS: AST(SGOT) 19 U/L (15-37); Alanine Aminotransfer ALT/SGPT 24 U/L (13-56); Albumin, Serum 3.5 g/dL (3.2-5.0); Alkaline Phosphatase 54 U/L (45-117); Anion Gap 5 (5-15); BUN 13 mg/dL (7-18); BUN/Creat Ratio 15.2 RATIO (10-20); Calcium,Total 8.5 mg/dL (8.5-10.1); Chloride 105 mmol/L (98-107); Cholesterol 203 mg/dL (200); Creatinine, Serum 0.86 mg/dL (0.55-1.02); EST Glomerular Filtration Rate 69 mL/min (>60); Est Glom Filt Rate - Afr Amer 84 mL/min (>60); Globulin 3.6 g/dL (2.2-4.2); Glucose 104 mg/dL (74-106); High Density Lipoprotein 53 mg/dL; Protein, Total 7.1 g/dL (6.4-8.2); Sodium Level 139 mmol/L (136-145); Thyroid Stim Hormone (TSH) 0.66 uIU/mL (0.358-3.74); Triglycerides 177 mg/dL; Very Low Density Lipoprotein 35 mg/dL (5-40)
== END ==
PROVIDERS: PCP Family Medicine; Referring Provider Nurse Practitioner Women's Health; Visit Provider Nurse Practitioner Women's Health
DX: Z00.00 Encounter for general adult medical examination without abnormal findings (principal); Z13.220 Encounter for screening for lipoid disorders; Z13.29 Encounter for screening for other suspected endocrine disorder; Z13.21 Encounter for screening for nutritional disorder
CPT/HCPCS: 36415; 80053; 80061; 82306; 84443; 85025

== ENCOUNTER 2020-03-21 11:30 | Emergency (ER) | payer MEDICARE, OTHER, SELFPAY ==
[2020-02-21 10:55] VITALS: BMI 40.4
[2020-03-21 11:34] VITALS: BP 170/78; PULSE 84; RESP 16; TEMP 36.6; O2SAT 97; BMI 40.6
[2020-03-21] MEDS: Lidocaine 1% (20 ml mdv) 20 ML Vial INFILT (13:12)
[2020-03-21] MEDS: BACITRACIN 15 GM Tube 1 APPLIC TOPICAL (13:13)
[2020-03-21] MEDS: Diphth,Pertuss(Acell),Tet Vac 0.5 ML Vial IM (13:13)
[2020-03-21] MEDS: Lidocaine/Epi/Tetracaine 50 ML 1 APPLIC TOPICAL (13:13)
--- NOTE | 2020-03-21 14:01 | ED.VISSUMM ---
- ER Visit Summary Date of Service: 03/21/20 Chief Complaint: Right hand laceration History of Present Illness: The patient is a 69 F who presents with right hand laceration that occurred today. Patient states she was pouring something out of a screener and blender operator when the blade from the screener and blender operator accidentally came out and hit her hand. Patient states the bleeding has been persistent. Patient describes the pain as burning. Patient states her pain is worse with any movement. Patient admits to some tingling around the laceration. Patient denies any weakness. Patient states her last tetanus was more than 10 years ago. Physical Examination: Vital signs are stable. Patient is afebrile. Patient is in no acute distress. Skin is warm and dry. There is a 3 cm full-thickness linear laceration on the radial aspect of the right thumb over the first metacarpal. There are no foreign bodies visualized. There is no tendon laceration noted. There is moderate bleeding. Strength is 5/5 in flexion and extension of the IP and MP joints of the right thumb. Sensation was intact to light touch in all digits. Capillary refill was less than 2 seconds in all digits. Emergency Department Course and Treatment: The wound was cleaned and irrigated with copious amounts of normal saline. The wound was anesthetized with 1% plain lidocaine locally. The wound was closed with 3 simple interrupted #4-0 nylon sutures under sterile technique. Patient tolerated the procedure well. Bacitracin dressing was applied. Patient was given a tetanus booster. Patient was instructed to keep the wound clean and dry. Patient was instructed to follow-up in 7 days for wound recheck and suture removal. Patient understood and was agreeable with the plan. All questions were answered. Disposition: Discharge home Impression: Right hand laceration This note was generated with [employer] dictation software. It may contain incorrect words, spelling, and punctuation that were not noted in review of the chart prior to signing ED Disposition - Plan for ED Patient: Disposition: Home or Assisted Living Diagnosis: Laceration of right hand Instructions: ED Laceration, Hand: All Closures Referrals: Eddie Ibarra MD [Primary Care Provider] - 7 Days for suture removal
[2020-03-21 14:13] VITALS: RESP 18
== END 2020-03-21 14:14 | disposition home or self-care (01) ==
PROVIDERS: Emergency Provider Emergency Medicine; PCP Family Medicine
DX: S61.411A Laceration without foreign body of right hand, initial encounter (principal); W26.8XXA Contact with other sharp object(s), not elsewhere classified, initial encounter; Y93.89 Activity, other specified; Y92.9 Unspecified place or not applicable; Y99.9 Unspecified external cause status; M19.90 Unspecified osteoarthritis, unspecified site
CPT/HCPCS: 12002; 90471; 90715; 99283

== ENCOUNTER 2020-03-28 14:56 | Outpatient (RCR) | payer MEDICARE, OTHER, SELFPAY | END 2020-03-28 23:59 | LOC: IMMUN 14:56 | PROVIDERS: PCP Family Medicine; Referring Provider Family Medicine; Visit Provider Family Medicine | DX: Z23 Encounter for immunization (principal) | CPT/HCPCS: 0011A; 0012A; 91301 ==

== ENCOUNTER → 2020-04-03 07:46 | Outpatient (CLI) | payer MEDICARE, OTHER, SELFPAY ==
[2020-03-21 11:34] VITALS: BMI 40.6
--- NOTE | 2020-04-03 07:51 | BI_ITS ---
MAMMOGRAPHY - BILATERAL SCREENING REASON FOR EXAM: Female, 69 years old. Routine annual screening examination. PERTINENT HISTORY: Non-contributory. TECHNIQUE: Digital bilateral breast justus (3D mammographic acquisition) in the CC and MLO projections. 2-D mediolateral oblique (MLO) and craniocaudad (CC) views of both breasts were obtained. CAD: Full Field Digital Mammography with Computer Added Detection was performed. COMPARISON: Comparison is made with prior study dated 04/02/2019 and 03/31/2015. FINDINGS: Breast Composition: The breasts are heterogeneously dense, which may obscure small masses. There are no dominant masses or suspicious calcifications. Stable secretory calcifications. No other significant abnormalities are identified. There has been no significant change since the prior study. BI/SCRN MAMM (CAD)W/JUSTUS BILAT IMPRESSION: Stable bilateral screening mammogram. Yearly follow-up mammogram recommended. (A) ASSESSMENT CATEGORY: BIRADS Category 2: Benign. A letter regarding these results will be sent to the patient by the facility within 30 days. Approximately 10% of breast cancers are not detected by mammography. A normal mammogram should not delay biopsy of a clinically suspicious abnormality. [id number] Electronically Signed: Tyrell Kuhn MD at 8:41 EST , Service support ,
== END ==
PROVIDERS: PCP Family Medicine; Referring Provider Nurse Practitioner Women's Health; Visit Provider Nurse Practitioner Women's Health
DX: Z12.31 Encounter for screening mammogram for malignant neoplasm of breast (principal)
CPT/HCPCS: 77063; 77067

== ENCOUNTER → 2020-04-11 09:57 | Outpatient (CLI) | payer MEDICARE, OTHER, SELFPAY ==
[2020-03-21 11:34] VITALS: BMI 40.6
[2020-04-11 10:52] LABS: AST(SGOT) 21 U/L (15-37); Alanine Aminotransfer ALT/SGPT 27 U/L (13-56); Albumin, Serum 3.7 g/dL (3.2-5.0); Alkaline Phosphatase 55 U/L (45-117); Anion Gap 4 (5-15); BUN 17 mg/dL (7-18); BUN/Creat Ratio 18.1 RATIO (10-20); Chloride 103 mmol/L (98-107); Creatinine, Serum 0.94 mg/dL (0.55-1.02); EST Glomerular Filtration Rate 63 mL/min (>60); Est Glom Filt Rate - Afr Amer 76 mL/min (>60); Globulin 3.7 g/dL (2.2-4.2); Glucose 99 mg/dL (74-106); Lipase 81 U/L (73-393); Potassium 4.4 mmol/L (3.5-5.1); Protein, Total 7.4 g/dL (6.4-8.2); Sodium Level 138 mmol/L (136-145)
== END ==
PROVIDERS: PCP Family Medicine; Referring Provider Family Medicine; Visit Provider Family Medicine
DX: R11.0 Nausea (principal)
CPT/HCPCS: 36415; 80053; 83690

== ENCOUNTER → 2020-09-05 | Outpatient (CLI) | payer MEDICARE, OTHER, SELFPAY | END | disposition home or self-care (01) | PROVIDERS: PCP Family Medicine; Referring Provider Family Medicine; Visit Provider Family Medicine | DX: N39.0 Urinary tract infection, site not specified (principal) | CPT/HCPCS: 87086; 87088; 87186 ==

== ENCOUNTER 2021-04-06 08:22 | Outpatient (CLI) | payer MEDICARE, OTHER, SELFPAY ==
--- NOTE | 2021-04-06 08:30 | BI_ITS ---
MAMMOGRAPHY - BILATERAL SCREENING REASON FOR EXAM: Female, 70 years old. Routine annual screening examination. PERTINENT HISTORY: Non-contributory. TECHNIQUE: Digital bilateral breast justus (3D mammographic acquisition) in the CC and MLO projections. 2-D mediolateral oblique (MLO) and craniocaudad (CC) views of both breasts were obtained. CAD: Full Field Digital Mammography with Computer Added Detection was performed. COMPARISON: Comparison is made with prior study of 04/03/2020 and 01/31/2020. FINDINGS: Breast Composition: The breasts are heterogeneously dense, which may obscure small masses. There are no dominant masses or suspicious calcifications. Stable scattered bilateral microcalcifications. No focal cluster is seen. No other significant abnormalities are identified. There has been no significant change since the prior study. BI/SCRN MAMM (CAD)W/JUSTUS BILAT IMPRESSION: Stable bilateral screening mammogram. Yearly follow-up mammogram recommended. (A) ASSESSMENT CATEGORY: BIRADS Category 2: Benign. A letter regarding these results will be sent to the patient by the facility within 30 days. Approximately 10% of breast cancers are not detected by mammography. A normal mammogram should not delay biopsy of a clinically suspicious abnormality. [id number] Electronically Signed: Tyrell Kuhn MD at 10:16 EST ,
== END 2021-04-06 23:59 | disposition home or self-care (01) ==
LOC: OPBI 08:22
PROVIDERS: PCP Family Medicine; Visit Provider Family Medicine
DX: Z12.31 Encounter for screening mammogram for malignant neoplasm of breast (principal)
CPT/HCPCS: 77063; 77067

== ENCOUNTER → 2021-07-03 | Outpatient (CLI) | payer MEDICARE, OTHER, SELFPAY ==
[2021-07-03 17:45] LABS: Absolute Lymphocyte Count 2.13 X10^3/uL (0.83-4.51); Absolute Neutrophil Count 3.4 X10^3/uL (2.0-7.7); Basophil# 0.08 X10^3/uL; Basophil% 1.3 % (0-1); Eosinophil# 0.06 X10^3/uL; Hematocrit 43.9 % (37-47); Hemoglobin 14.8 g/dL (12.0-15.0); Lymphocyte # 2.13 X10^3/ul (0.83-4.51); Mean Corp Hgb Conc 33.7 g/dL (32-36); Mean Corpuscular Hgb 32.5 pg (27.0-32.0); Mean Corpuscular Volume 96.3 fL (81-99); Monocyte# 0.56 X10^3/uL; Monocyte% 8.9 % (0-10); NRBC Flagged by Analyzer 0 % (0-5); Neutrophil # 3.42 X10^3/uL (2.7-7.7); Neutrophil % 54.6 % (47-70); Platelet Count 247 K/mm3 (150-450); RBC Distribution Width CV 12.6 % (11.6-14.6); RBC Distribution Width SD 45.2 fl (35.1-43.9); Red Blood Count 4.56 M/mm3 (4.2-5.4); White Blood Count 6.3 K/mm3 (4.4-11.0)
[2021-07-03 17:58] LABS: Erythrocyte Sedimentation Rate 27 mm/hr (0-30)
[2021-07-03 18:41] LABS: ALB/GLOB Ratio 1.1 RATIO (0.9-2.4); AST(SGOT) 18 U/L (15-37); Alanine Aminotransfer ALT/SGPT 25 U/L (13-56); Albumin, Serum 3.8 g/dL (3.2-5.0); Alkaline Phosphatase 53 U/L (45-117); Anion Gap 7 (5-15); BUN 13 mg/dL (7-18); BUN/Creat Ratio 16.1 RATIO (10-20); CRP 5.06 mg/L (0.0-3.0); Calcium,Total 9.1 mg/dL (8.5-10.1); Chloride 106 mmol/L (98-107); Creatinine, Serum 0.81 mg/dL (0.55-1.02); EST Glomerular Filtration Rate 74 mL/min (>60); Est Glom Filt Rate - Afr Amer 90 mL/min (>60); Globulin 3.6 g/dL (2.2-4.2); Glucose 102 mg/dL (74-106); Potassium 3.7 mmol/L (3.5-5.1); Protein, Total 7.4 g/dL (6.4-8.2); Rheumatoid Factor < 10.0 IU/mL (<15); Sodium Level 138 mmol/L (136-145)
[2021-07-04 10:10] LABS: Hepatitis B Surface Antibody Reactive; Hepatitis B Surface Antigen Non-Reactive (Nonreactive); Hepatitis C Antibody Non-Reactive (Nonreactive)
[2021-07-08 09:12] LABS: CCP IgG Antibodies 7 units (0-19)
[2021-07-08 11:08] LABS: ANTINUCLEAR ANTIBODIES DIRECT Negative (Negative)
== END | disposition home or self-care (01) ==
LOC: MTLAB 14:25
PROVIDERS: PCP Family Medicine; Referring Provider Internal Medicine Rheumatology; Visit Provider Internal Medicine Rheumatology
DX: M06.4 Inflammatory polyarthropathy (principal); M17.0 Bilateral primary osteoarthritis of knee; M19.041 Primary osteoarthritis, right hand; F32.A Depression, unspecified; F41.9 Anxiety disorder, unspecified; K21.9 Gastro-esophageal reflux disease without esophagitis; K59.00 Constipation, unspecified
CPT/HCPCS: 36415; 80053; 85025; 85652; 86038; 86140; 86200; 86431; 86706; 86803; 87340

== ENCOUNTER → 2021-07-07 | Outpatient (CLI) | payer MEDICARE, OTHER, SELFPAY | END | disposition home or self-care (01) | LOC: SL 10:30 | PROVIDERS: PCP Family Medicine; Visit Provider Internal Medicine Pulmonary Disease | DX: R69 Illness, unspecified (principal) ==

== ENCOUNTER 2021-08-26 11:35 | Inpatient (IN) | payer MEDICARE, OTHER, SELFPAY ==
--- NOTE | 2021-08-14 07:34 | EKG12_ITS ---
Test Reason : PRE-OP Blood Pressure : / mmHG Vent. Rate : 071 BPM Atrial Rate : 071 BPM P-R Int : 168 ms QRS Dur : 082 ms QT Int : 382 ms P-R-T Axes : 033 007 037 degrees QTc Int : 415 ms Normal sinus rhythm Normal ECG Confirmed by ERASMO HEAD, TROY ([id number]), supervising editor news reel MAIKOL NASCIMENTO ([id number]) on 08/15/2021 9:48:30 AM Referred By: Heber Porter Confirmed By:TROY ZIMMERMAN MD
[2021-08-14 09:31] LABS: International Normalized Ratio 1.1
[2021-08-14 09:33] LABS: Partial Thromboplast Time 32.6 Seconds (24.1-36.2)
[2021-08-14 09:36] LABS: Hemoglobin A1c 5.7 % (3.8-5.6)
[2021-08-14 09:44] LABS: Magnesium 2.3 mg/dL (1.6-2.6)
[2021-08-26] VITALS (13 sets, daily range): BP systolic 116–147; BP diastolic 44–76; PULSE 82–97; RESP 16–18; TEMP 36.3–37; O2SAT 94–100; BMI 37.6
--- NOTE | 2021-08-26 07:07 | OP.PCM_ITS ---
Report of Operation Date of Procedure: 08/26/21 Pre-Operative Diagnosis: Painful right total knee replacement, instability Post-Operative Diagnosis: Painful right total knee replacement, instability Surgery/Procedure Performed:: Revision right total knee replacement polyethylene exchange Description of Surgical Findings:: Stable implants. Went from a 11 mm CR polyethylene to a 14 mm MC polyethylene. Surgeon: Heber Porter bridge carpenter: Travis Pineda Type of Anesthesia: Spinal Anesthesiologist: Deejay Sanchez Special Medications: 2 g Ancef, 1 g TXA at incision, 1 g TXA closure, 10 mg Decadron, joint cocktail (5 mg Duramorph, 30 mL of 0.5% Ropivicaine, 1000 units of epinephrine, 30 mg of Toradol) Specimen's removed: 3 separate specimens were sent to microbiology Estimated Blood Loss (mL): 25 Fluids Replaced: 800 mL crystalloid Description of Procedure: 70 yo f history of previous right TKA presents with symptoms of instability. Reviewed options were discussed the patient. Based on symptoms of symmetric instability and negative work-up for infection I recommended revision total knee replacement with polyethylene exchange. Risks and benefits of the procedure were discussed with the patient including but not limited to blood loss, DVTs, PEs, neurovascular damage, infection, general risk of anesthesia including loss of life. Demonstrated understanding and was able to sign informed consent. On the date of procedure patient's[] lower extremity was marked in the preoperative area. The patient was then taken back to the operating room where the patient was placed on the table in the supine position. All bony prominences were identified a well-padded. Anesthesia assumed control of the C-spine and airway and remained controlled throughout the remainder of the procedure. A t ourniquet was placed on the operative thigh and the leg was prepped in a sterile fashion. The surgeon then scrubbed at this time .Upon reentering the room left lower extremity was draped in a standard orthopedic fashion. A timeout was then called and everyone agreed upon the side, the site, the procedure to be performed, patient's identity and antibiotics given. A midline skin incision was made and sharp dissection was taken down through skin subcutaneous tissue and fat. Appropriate flaps were elevated medially and laterally. His arthrotomy was identified and the standard medial parapatellar incision was made and the patella was subluxed laterally. The standard deep MCL release was done. At this point an aggressive synovectomy commenced. Our attention was first turned towards the subpatellar pouch and all suspicious synovium and tissues were debrided. We then directed our attention towards medial lateral gutters were these tissues were aggressively debrided. Knee was then flexed up the polyethylene was removed. Once polyethylene was removed we did the remainder of the synovium in the medial and lateral gutters and along the lateral structures and MCL. We then debrided the posterior knee. Knee was flexed up and culture was taken from the femoral notch. And also there was a membrane beneath the tibial baseplate that was removed and sent for culture. Once we had completed our synovectomy and were happy with the joint, 6 L of normal saline were then irrigated throughout the wound with low-pressure lavage and the wound was once again explored. All remaining tissue that was suspicious was seen in the wound was once again irrigated with normal saline. Beatrice [employer] 14 mm MC 6 7, CD polyethylene was then opened and put back into place after appropriate trialing. Tourniquet was let down and hemostasis was obtained as well as possible. Once the final components were placed the wound was copiously irrigated with normal saline solution. The wound was closed in a layer acosta fashion using #1 vicryl interrupted sutures for the arthrotomy, 2-0 interrupted Vicryl for the subcuticular layer and vivek for final skin closure. A sterile compressive dressing was then placed. The patient was then awakened from anesthesia, transferred to the [facility] and transferred to the PACU for recovery. Post op plan Weightbearing as tolerated, activity as tolerated, 81 mg aspirin twice daily for DVT prophylaxis. My physician director of social media marketing (PE) was a vital part of this case. They were important in appropriate retraction during the case, and protection of soft tissues during bony cuts. Their intimate knowledge of the case and my steps aided in safe and expedient completion of the procedure as well as appropriate position of the leg during the case. They were also vital in assisting with closure under my direct supervision. Complications No intraoperative complications Admit VTE Documentation VTE Present on Admission: No VTE Mechan Device Prophylaxis: SCD's and Thigh High BRAEDEN Hose VTE Pharm Prophylaxis ordered?: Yes
[2021-08-26] MEDS: Lactated Ringers 1,000 ML 999 ML IV (10:37)
[2021-08-26] MEDS: Celecoxib 200 MG Capsule 400 MG PO (10:52)
[2021-08-26] MEDS: Acetaminophen 500 MG Tablet 1000 MG PO ×2 (10:52→17:46)
[2021-08-26] MEDS: Gabapentin 600 MG Tablet PO (10:52)
[2021-08-26] MEDS: Lactated Ringers 1,000 ML 75 ML IV (10:53)
[2021-08-26 11:05] LABS: Bedside Glucose 120 mg/dL (74-106)
--- NOTE | 2021-08-26 11:31 | PCM.HP.BLA ---
Assessment & Plan Assessment/Plan (1) Total knee replacement status: PLAN: Plan This is an update to patient's history and physical. Patient has been reexamined today without any changes to her previous history and physical. Plan to proceed with surgery.
--- NOTE | 2021-08-26 11:36 | RAD_ITS ---
STUDY: X-RAY - RIGHT KNEE REASON FOR EXAM: Female, 70 years old. Post op -- AP and Lateral xray of operative knee in PACU TECHNIQUE: 2 view(s) of the knee. COMPARISON: None. FINDINGS: Normal visualized distal femur. Normal visualized proximal tibia and fibula. Normal proximal tibiofibular articulation. The patient is status post total knee replacement. There is good alignment. Postoperative soft tissue changes. RAD/Knee 1 or 2 Views IMPRESSION: Status post right total knee replacement. There is good alignment. Postoperative soft tissue changes. Electronically Signed: Tyrell Kuhn MD at 14:26 EDT ,
[2021-08-26] MEDS: Cefazolin 2 GM in 0.9% Normal Saline 100 ML IV (12:12)
[2021-08-26] MEDS: dexAMETHasone 10 MG/ML Vial IV (12:15)
[2021-08-26] MEDS: TXA 1000mg in NS100 100ml (IVPB at Incision) 660 MG IV (12:20)
[2021-08-26] MEDS: TXA 1000mg in NS100 100ml (IVPB at Closure) 660 MG IV (12:59)
[2021-08-26] MEDS: oxyCODONE 5 MG Tablet PO (17:46)
[2021-08-26] MEDS: Cefazolin 1 GM/50 ML BAG IV (20:32)
[2021-08-26] MEDS: Senna/Docusate Sodium 1 Tablet 2 TABLET PO (22:24)
[2021-08-26] MEDS: Famotidine 20 MG Tablet PO (22:24)
[2021-08-26] MEDS: Aspirin 81 MG TAB.CHEW PO (22:26)
[2021-08-26] MEDS: Temazepam 15 MG Capsule 30 MG PO (22:28)
[2021-08-27 02:30] VITALS: BP 133/71; PULSE 78; RESP 16; TEMP 36.4; O2SAT 94
[2021-08-27] MEDS: Acetaminophen 500 MG Tablet 1000 MG PO ×2 (02:48→11:05)
[2021-08-27] MEDS: 0.9% Saline Lock 10 ML Syringe IV (03:00)
[2021-08-27] MEDS: Cefazolin 1 GM/50 ML BAG IV (03:01)
[2021-08-27 06:00] VITALS: BP 141/76; PULSE 72; RESP 16; TEMP 36.6; O2SAT 93
[2021-08-27 06:32] LABS: Hematocrit 41.2 % (37-47); Hemoglobin 13.9 g/dL (12.0-15.0); Mean Corp Hgb Conc 33.7 g/dL (32-36); Mean Corpuscular Hgb 33.1 pg (27.0-32.0); Mean Corpuscular Volume 98.1 fL (81-99); Mean Platelet Vol. 10.1 fl (6.2-12.0); Platelet Count 243 K/mm3 (150-450); RBC Distribution Width CV 13.2 % (11.6-14.6); RBC Distribution Width SD 46.8 fl (35.1-43.9); White Blood Count 14.3 K/mm3 (4.4-11.0)
[2021-08-27 07:14] LABS: Anion Gap 9 (5-15); BUN 9 mg/dL (7-18); BUN/Creat Ratio 10.6 RATIO (10-20); Chloride 105 mmol/L (98-107); Creatinine, Serum 0.85 mg/dL (0.55-1.02); EST Glomerular Filtration Rate 70 mL/min (>60); Est Glom Filt Rate - Afr Amer 85 mL/min (>60); Estimated Creatinine Clearance 47.32 ml/min; Glucose 119 mg/dL (74-106); Potassium 3.9 mmol/L (3.5-5.1); Sodium Level 140 mmol/L (136-145)
[2021-08-27 07:55] VITALS: BP 139/86; PULSE 71; RESP 18; TEMP 36.4; O2SAT 95
[2021-08-27] MEDS: Famotidine 20 MG Tablet PO (08:11)
[2021-08-27] MEDS: Cholecalciferol (VIT D3) 25 MCG TABLET (1,000 UNITS) PO (08:11)
[2021-08-27] MEDS: Escitalopram Oxalate 20 MG Tablet PO (08:11)
[2021-08-27] MEDS: Aspirin 81 MG TAB.CHEW PO (08:11)
[2021-08-27] MEDS: Folic Acid 1 MG Tablet 2 MG PO (08:12)
--- NOTE | 2021-08-27 08:34 | PCM.PN.HOSP ---
Subjective Subjective Follow-up on post-op medical management/revision right total knee replacement: Patient was seen and examined. Her pain is fairly controlled. No acute events overnight. She has been walking around the room. Objective Data Objective Data Vital Signs: Vital Signs Temp Pulse Resp BP Pulse Ox O2 Del Method O2 Flow Rate 97.6 F L 71 18 139/86 H 95 Room Air 4 08/27/21 07:55 08/27/21 07:55 08/27/21 07:55 08/27/21 07:55 08/27/21 07:55 08/27/21 07:55 08/26/21 14:15 FiO2 4 08/26/21 15:15 Oxygen Flow Rate (L/min) 4 Oxygen Delivery Method Room Air Weight: 93.44 kg Body Mass Index (BMI) 37.6 Intake & Output: Intake and Output for Last 24 Hours 08/25/21 08/26/21 08/27/21 23:59 23:59 23:59 Intake Total 1531.95 / 1531.95 50 / 50 Output Total 350 / 350 Balance 1181.95 / 1181.95 50 / 50 Lab / Micro Data Result Diagrams: 08/27/21 05:35 08/27/21 05:35 Labs: Laboratory Results - last 24 hr 08/26/21 10:36: POC Glucose 120 H 08/27/21 05:35: WBC 14.3 H, RBC 4.20, Hgb 13.9, Hct 41.2, MCV 98.1, MCH 33.1 H, MCHC 33.7, RDW Std Deviation 46.8 H, RDW Coeff of Kaykay 13.2, Plt Count 243, MPV 10.1 08/27/21 05:35: Sodium 140, Potassium 3.9, Chloride 105, Carbon Dioxide 26.0, Anion Gap 9, BUN 9, Creatinine 0.85, Estim Creat Clear Calc 47.32, Est GFR (MDRD) Af Amer 85, Est GFR (MDRD) Non-Af 70, BUN/Creatinine Ratio 10.6, Glucose 119 H, Calcium 9.0 Micro: Microbiology 08/14/21 07:51 Swab (Method) Nasal Screen MRSA/MSSA - Final Radiography Diagnostic Testing: Radiology Impression Knee X-Ray 08/26/21 11:36 IMPRESSION: Status post right total knee replacement. There is good alignment. Postoperative soft tissue changes. Electronically Signed: Tyrell Kuhn MD at 14:26 EDT , Physical Exam Narrative Physical exam: General: Alert, Oriented x3, Cooperative, No apparent distress HEENT: Atraumatic Oral: Moist Mucosa Neck: Supple Lungs: Clear to auscultation Cardiovascular: HS I+II, regular, no murmurs Abdomen: Bowel Sounds Present, Soft, Non Tender Extremities: No edema Skin: No rashes, No breakdown Neurological: Grossly intact Psych/Mental Status: Appropriate Assessment & Plan Assessment/Plan (1) Osteoarthritis of right knee: PLAN: Plan 1. POD #1 s/p right reverse total knee arthroplasty Pain is controlled, continue on scheduled Tylenol, oxycodone prn Continue on doxycycline , follow-up on orthopedics recommendations 2. KATHLEEN, continue on CPAP 3. GERD/RA/Depression/chronic insomnia, Continue meloxicam, methotrexate, home temazepam, Lexapro 4. Morbid obesity, BMI 40.4, lifestyle modifications recommendations 5. DVT PPx- aspirin BID Charges/Coding Visit Charges Inpatient E&M: 23809 Subs Hosp L2
--- NOTE | 2021-08-27 09:10 | PN.ORTHO_ITS ---
Subjective Subjective The patient was sitting in bedside chair eating breakfast upon examination. Patient's daughter was also present during evaluation. Patient denies any chest pain, shortness of breath, dizziness, lightheadedness, nausea or vomiting, or calf pain. Pain is controlled on medications. No adverse overnight events. Jamaal martins has been up walking already tolerating this very well. She does wish to try to go home today. Objective Data Objective Data Vital Signs: Vital Signs Temp Pulse Resp BP Pulse Ox O2 Del Method O2 Flow Rate 97.6 F L 71 18 139/86 H 95 Room Air 4 08/27/21 07:55 08/27/21 07:55 08/27/21 07:55 08/27/21 07:55 08/27/21 07:55 08/27/21 07:55 08/26/21 14:15 FiO2 4 08/26/21 15:15 Oxygen Flow Rate (L/min) 4 Oxygen Delivery Method Room Air Weight: 93.44 kg Body Mass Index (BMI) 37.6 Intake & Output: Intake and Output for Last 24 Hours 08/25/21 08/26/21 08/27/21 23:59 23:59 23:59 Intake Total 1531.95 / 1531.95 50 / 50 Output Total 350 / 350 Balance 1181.95 / 1181.95 50 / 50 Lab / Micro Data Result Diagrams: 08/27/21 05:35 08/27/21 05:35 Labs: Laboratory Results - last 24 hr 08/26/21 10:36: POC Glucose 120 H 08/27/21 05:35: WBC 14.3 H, RBC 4.20, Hgb 13.9, Hct 41.2, MCV 98.1, MCH 33.1 H, MCHC 33.7, RDW Std Deviation 46.8 H, RDW Coeff of Kaykay 13.2, Plt Count 243, MPV 10.1 08/27/21 05:35: Sodium 140, Potassium 3.9, Chloride 105, Carbon Dioxide 26.0, Anion Gap 9, BUN 9, Creatinine 0.85, Estim Creat Clear Calc 47.32, Est GFR (MDRD) Af Amer 85, Est GFR (MDRD) Non-Af 70, BUN/Creatinine Ratio 10.6, Glucose 119 H, Calcium 9.0 Micro: Microbiology 08/14/21 07:51 Swab (Method) Nasal Screen MRSA/MSSA - Final Radiography Diagnostic Testing: Radiology Impression Knee X-Ray 08/26/21 11:36 IMPRESSION: Status post right total knee replacement. There is good alignment. Postoperative soft tissue changes. Electronically Signed: Tyrell Kuhn MD at 14:26 EDT , Physical Exam Narrative Vital signs stable and afebrile. SCDs and BRAEDEN hose are in place bilaterally Patient is able to plantarflex and dorsiflex actively. Sensation is intact to light touch to saphenous, sural, superficial and deep peroneal, and tibial distribution. Dressing is clean dry and intact. Negative Homans bilaterally, negative signs and symptoms of DVT. Const alert, oriented x3 and no apparent distress Assessment & Plan Assessment/Plan (1) History of revision of total knee arthroplasty: PLAN: 1. S/P right revision total knee with polyethylene exchange POD #1 2. Continue Pain Medications: Tylenol, meloxicam, oxycodone. Do not take any other nonsteroidal anti-inflammatories while using meloxicam/Mobic. 3. DVT Prophylaxis: Take 81 mg aspirin twice daily for 4 weeks postoperatively for DVT prophylaxis. Patient does not have any history of previous DVT or pulmonary embolism in the past. 4. PT/OT: Weightbearing as tolerated with walker 5. H & H: 13.9/41.2, asymptomatic. Postoperative anemia secondary to acute blood loss from surgery without any intra operative complications. 6. Reactive leukocytosis: Currently 14.3, afebrile. Patient did receive Decadron intraoperatively 7. Continue antibiotics while following cultures: Cultures are currently pending. Patient will be on doxycycline for 2 weeks postoperatively. Discussed with the patient on this medication she is more sensitive to the sun and should take appropriate precautions. Also recommended probiotic while on antibiotic f or 2 weeks. Patient voiced understanding agreement. 8. Encouraged Incentive Spirometry 9. Disposition: Patient overall is doing very well. Plan will be for discharge home this afternoon as long as patient's pain is well controlled, tolerates therapy, and medically stable. Patient's prescriptions will be E scribed to [facility]. She will follow-up per postop instructions. Pat ient will require physical therapy and will need this set up. Case management is currently involved. Discussed with the patient no driving for 6 weeks postoperatively. She will contact her office upon discharge with any concerns or questions. I have reviewed the [place] Automated Rx Reporting System (OARRS) report for this patient for refill pattern and other prescriber involvement as part of the appropriate surveillance for the provision of acute and chronic controlled medications. The report was requested and reviewed on the date of this entry and was considered in the prescribing process. This dictation was created using voice recognition software. Phonetic and/or grammatical errors may exist.
--- NOTE | 2021-08-27 09:22 | DCINST_ITS ---
Discharge Instructions Diet Discharge Diet: No restrictions Activity Discharge Activity: May Not Drive (Do not drive for 6 weeks postoperatively. Also must be off all narcotics and able to walk 100 feet without the use of cane or walker.) May shower in (days): 1 (Please turn dressing away from water. Okay to get wet as long as dressing is intact to skin.) Ice area for (Minutes): 20 (Every 1-2 hours while awake. Please place barrier between the skin and ice pack.) Weight Bearing Status: Weight bearing as tolerated (With walker) Keep extremity elevated above heart level: Operative Extremity Dressing / Incision Call your doctor if your incision/area has: Continuous Slow Oozing, Sudden Increased Bleeding, Increased Pain/ Swelling, Increased Redness and Foul Smelling Discharge Call your doctor if you observe: Fever of 101 or Higher, Coldness, Increased Pain, Numbness or Tingling, Change in Color, Shortness of breath, Chest pain, Calf discomfort and Uncontrolled pain Remove Dressing in: 4 days (Okay to remove dressing on August 31, 2021) Additional Dressing/Incision Instructions:: Follow [facility] Post-op Instructions. Once postoperative dressing has been removed only use gentle soap and water over the incision. Do not use any ointments, Neosporin, salves, alcohol pads, hydrogen peroxide over the incision for 6 weeks postoperatively. Do not submerge underwater for 6 weeks postoperatively. Continue with BRAEDEN hose/elastic stockings for 2 weeks postoperatively. May remove at nighttime but needs to be placed back on the leg during the day. Do NOT use alcohol with narcotic pain medication. Do NOT make important decisions while taking narcotic medication. If you have problems with taking your medication (rash, itching, nausea, etc.) call the office at once. Follow Up Care Test Results: Test results from this visit will be discussed in further detail at your follow- up appointment, if applicable. Discharge Plan Admission Admit Date/Time: 08/26/21 11:35 Attending Provider: Heber Porter Primary Care Provider: Eddie Ibarra Consulting Providers: Grace Joseph ; Leta Steel ; Deniz Valdivia Discharge Orders/Prescriptions Prescriptions: New acetaminophen 500 mg Tablet 1,000 mg PO TID Qty: 100 0RF Rx Instructions: Do not take more than 3000 mg Tylenol in a 24-hour period. aspirin 81 mg Tablet,Chewable 81 mg PO BIDCM 30 Days Qty: 60 0RF Rx Instructions: Take 81 mg aspirin twice daily for 4 weeks postoperatively for DVT prophylaxis doxycycline monohydrate 100 mg Capsule 100 mg PO BID 14 Days Qty: 28 0RF Rx Instructions: Take for 2 weeks postoperatively famotidine 20 mg Tablet 20 mg PO DAILY Qty: 30 0RF oxycodone 5 mg Tablet 5 - 10 mg PO Q4H PRN PRN (Reason: Pain Score 4-10) 5 Days Qty: 42 0RF Continued temazepam 30 mg capsule 30 mg PO QHS melatonin 10 mg tablet 20 mg PO HS CertaVite Senior 0.4-300-250 mg-mcg-mcg tablet 1 tab PO DAILY escitalopram oxalate 20 MG tablet 20 mg PO DAILY Label Comments: mood meloxicam 7.5 MG tablet 15 mg PO DAILY methotrexate sodium 2.5 mg Tablet 12.5 mg PO SA docusate sodium [Stool Softener] 100 mg Capsule 200 mg PO QHS folic acid 1 mg Tablet 2 mg PO DAILY cholecalciferol (vitamin D3) [Vitamin D3] 25 mcg (1,000 unit) Capsule 25 mcg PO DAILY cyanocobalamin-liver extract Tablet 1,000 tab PO DAILY psyllium husk [Metamucil] 0.4 gram Capsule 0.4 g PO DAILY Referrals / Follow Up: Eddie Ibarra MD [Primary Care Provider] - Travis Pineda PA-C [PHYSICIAN COMPUTER EQUIPMENT REPAIRER] - 09/10/21 2:30 pm Disposition Disposition (needs filled in before D/C Order can be placed): Home, Self Care
--- NOTE | 2021-08-27 10:30 | CASEMGMT ---
TAMIA YOU Face to Face with patient for initial transition planning/care coordination assessment. RN CM introduced self and role at [facility]. Patient lying in bed, alert and oriented. Patient willing to participate in assessment and is able to answer all questions appropriately. Care providers, pharmacy, and demographics verified. Patient wishes to discharge home and would like outpatient therapy scheduled at [facility]. TAMIA YOU will call and schedule appt with [facility]. Patient states she has no further needs or concerns at this time. CM to follow for discharge planning needs that may arise. PCP: Stacey Specialists: sharon Porter; RA Phoebe Preferred Pharmacy: [facility] retail Insurance: [employer], NEON Concierge Prescription Benefit: yes Living Will/HPOA: yes, daughter Maria Victoria Castillo LNOK: daughter Living Arrangements: Patient lives alone in a single story home with 1 step and grab bar to enter the home. Patient states she was independent prior to surgery Transportation: self, daughter, sister DME/HHC: Patient states she has shower chair, raised toilet, cane, walker, and bipap at home. Patient denies previous HHC or SNF Disposition Plan: Patient to discharge home with outpatient therapy, family support, and follow-up plans in place. Aviva WATERS, RN, CM
--- NOTE | 2021-08-27 11:30 | CASEMGMT ---
TAMIA YOU called and scheduled appt with [facility] for outpatient therapy. Appt scheduled for 09/01/21 1400. TAMIA YOU updated discharge plans and enter appt. TAMIA YOU updated patient and daughter. Patient had no further questions or concerns at this time.
[2021-08-27 13:19] VITALS: BP 143/65; PULSE 78; RESP 18; TEMP 36.6; O2SAT 96
== END 2021-08-27 13:30 | disposition home or self-care (01) | DRG 516 ==
LOC: SDC 17:32 → MS3 17:32
PROVIDERS: Anesthesiology; Admitting Provider Specialist; PCP Family Medicine; Referring Provider Specialist; Visit Provider Specialist
PROC: 0SUV09Z Supplement Right Knee Joint, Tibial Surface with Liner, Open Approach (ICD-10-PCS; principal; 2021-08-26 12:20)
DX: T84.84XA Pain due to internal orthopedic prosthetic devices, implants and grafts, initial encounter (principal); Z68.41 Body mass index [BMI] 40.0-44.9, adult; E66.01 Morbid (severe) obesity due to excess calories; M06.9 Rheumatoid arthritis, unspecified; G47.33 Obstructive sleep apnea (adult) (pediatric); K21.9 Gastro-esophageal reflux disease without esophagitis; M25.361 Other instability, right knee; X58.XXXA Exposure to other specified factors, initial encounter; F32.A Depression, unspecified; F51.04 Psychophysiologic insomnia; Z96.651 Presence of right artificial knee joint; Z79.82 Long term (current) use of aspirin; Z79.899 Other long term (current) drug therapy; Z87.891 Personal history of nicotine dependence
CPT/HCPCS: 36415; 73560; 80048; 82962; 83036; 83735; 85027; 85610; 85730; 87015; 87070; 87075; 87081; 87102; 87116; 87205; 87206; 93005; 97110; 97162; 97166; 97530; 99251; C1776; J7050; J7120; A4216; G0463; J2405; J3475

== ENCOUNTER → 2021-09-17 | Outpatient (CLI) | payer MEDICARE, OTHER, SELFPAY ==
[2021-09-17 12:08] LABS: Absolute Lymphocyte Count 1.87 X10^3/uL (0.83-4.51); Basophil# 0.05 X10^3/uL; Basophil% 0.9 % (0-1); Eosinophil# 0.09 X10^3/uL; Eosinophils% 1.6 % (0-5); Hematocrit 41.2 % (37-47); Hemoglobin 13.7 g/dL (12.0-15.0); Lymphocyte # 1.87 X10^3/ul (0.83-4.51); Lymphocyte % 32.9 % (19-41); Mean Corp Hgb Conc 33.3 g/dL (32-36); Mean Corpuscular Hgb 33.3 pg (27.0-32.0); Mean Corpuscular Volume 100.2 fL (81-99); Mean Platelet Vol. 9.9 fl (6.2-12.0); Monocyte# 0.68 X10^3/uL; NRBC Flagged by Analyzer 0 % (0-5); Neutrophil # 2.98 X10^3/uL (2.7-7.7); Neutrophil % 52.2 % (47-70); Platelet Count 288 K/mm3 (150-450); RBC Distribution Width CV 13.7 % (11.6-14.6); RBC Distribution Width SD 50.2 fl (35.1-43.9); Red Blood Count 4.11 M/mm3 (4.2-5.4); White Blood Count 5.7 K/mm3 (4.4-11.0)
[2021-09-17 12:19] LABS: ALB/GLOB Ratio 0.9 RATIO (0.9-2.4); AST(SGOT) 17 U/L (15-37); Alanine Aminotransfer ALT/SGPT 19 U/L (13-56); Albumin, Serum 3.4 g/dL (3.2-5.0); Alkaline Phosphatase 53 U/L (45-117); Anion Gap 5 (5-15); BUN 12 mg/dL (7-18); BUN/Creat Ratio 16.7 RATIO (10-20); Chloride 107 mmol/L (98-107); Creatinine, Serum 0.72 mg/dL (0.55-1.02); EST Glomerular Filtration Rate 84 mL/min (>60); Est Glom Filt Rate - Afr Amer 102 mL/min (>60); Globulin 3.7 g/dL (2.2-4.2); Glucose 102 mg/dL (74-106); Potassium 4.1 mmol/L (3.5-5.1); Protein, Total 7.1 g/dL (6.4-8.2); Sodium Level 141 mmol/L (136-145)
== END | disposition home or self-care (01) ==
LOC: MTLAB 10:45
PROVIDERS: PCP Family Medicine; Referring Provider Internal Medicine Rheumatology; Visit Provider Internal Medicine Rheumatology
DX: M06.4 Inflammatory polyarthropathy (principal); M17.0 Bilateral primary osteoarthritis of knee; M19.041 Primary osteoarthritis, right hand; F41.9 Anxiety disorder, unspecified; K21.9 Gastro-esophageal reflux disease without esophagitis; K59.00 Constipation, unspecified
CPT/HCPCS: 36415; 80053; 85025

== ENCOUNTER → 2021-10-08 | Outpatient (CLI) | payer MEDICARE, OTHER, SELFPAY ==
--- NOTE | 2021-10-08 08:13 | CT_ITS ---
STUDY: CT LEFT LOWER EXTREMITY WITHOUT CONTRAST REASON FOR EXAM: Left knee osteoarthritis, surgical planning. TECHNIQUE: Transaxial CT imaging of the lower extremity was performed. Sagittal and coronal images were reconstructed. Individualized dose optimization techniques were used for this CT. COMPARISON: Radiograph report of the left knee 09/15/2010. FINDINGS: Hip: There is joint space narrowing of the left hip (coronal reconstructions 77-83). Knee: There is a medial femorotibial unicompartmental arthroplasty. There are marginal osteophytes of the lateral femorotibial compartment with preservation of joint space. There are marginal osteophytes of the patellofemoral articulation preservation of joint space. Ankle: There is a posterior calcaneal enthesophyte. Otherwise, unremarkable left ankle. CT/Extremity Lower without Contra IMPRESSION: Medial femorotibial unicompartmental arthroplasty and degenerative changes of the left knee. Electronically Signed: Melvin Frazier MD at 10:30 EDT ,
== END | disposition home or self-care (01) ==
LOC: CT 08:09
PROVIDERS: PCP Family Medicine; Referring Provider Specialist; Visit Provider Specialist
DX: Z96.651 Presence of right artificial knee joint (principal)
CPT/HCPCS: 73700

== ENCOUNTER 2021-11-04 09:38 | Inpatient (IN) | payer MEDICARE, OTHER, SELFPAY ==
--- NOTE | 2021-08-26 13:52 | PCM.PN.HOSP ---
Subjective Subjective Mrs. Ayala is a 70-year-old white female who is unfortunately suffering from bilateral knee pain. The patient has had a history of bilateral total knee arthroplasties with the right done in 2015 and a partial left in 2010. She unfortunately was experiencing some instability in the right knee and wear of the polyurethane was noted on imaging. She elected to proceed with a right total knee revision and a polyethylene exchange which was performed by Dr. Porter on 08/26/2021. We have been consulted for postoperative medical management. She was evaluated in the postoperative period while she was still in PACU. Patient was wide-awake and complaining of no pain. She reported no needs at this time. States the tentative plan is for her to go home tomorrow. Physical Exam Const alert, oriented x3, no apparent distress, healthy appearing and well nourished Constitutional Narrative: Morbidly obese white female lying in bed in PACU, appears comfortable nontoxic, nursing at bedside HEENT head/scalp atraumatic, moist oral mucous membranes and oropharynx normal HEENT Narrative: Mallampati 3, no thrush Resp normal respiratory effort, no retractions, no use of accessory muscles and clear to auscultation bilaterally Auscultation: Negative for crackles, rales, rhonchi or wheezes Cardio regular rate, regular rhythm, S1 normal heart sound, S2 normal heart sound, no murmurs, no rub, no gallops, no clicks and no JVD GI normal to inspection, nondistended, normoactive bowel sounds, soft to palpation, non-tender and non-distended Extremity no clubbing, cyanosis or edema Extremity Narrative: 2+ pedal pulses, polar ice on right lower extremity Neuro oriented x3, CN's II-XII intact bilaterally and no focal motor deficits Speech: speech normal Psych affect normal Psych Narrative: Very pleasant Assessment & Plan Assessment/Plan (1) History of revision of total knee arthroplasty: (2) Osteoarthritis of right knee: PLAN: Plan Osteoarthritis of the right knee -Initial right total knee arthroplasty done in 2015 -Postop day 0 revision of total knee arthroplasty with polyethylene exchange -Management per primary service -Recommend bowel regimen -PT/OT KATHLEEN -Recommend CPAP with sleep while hospitalized GERD -Patient does not appear to be on any medications for this chronically at home -Continue to monitor Rheumatoid arthritis -Continue methotrexate when okay to start per orthopedic surgery -Hold meloxicam Insomnia -Continue home temazepam nightly -Continue melatonin Depression -Continue Lexapro Vitamin D deficiency -Restart cholecalciferol on discharge History of tobacco abuse -Patient is not on any home inhalers -Could consider as needed duo nebs Morbid obesity -BMI is 40.4 -Recommend weight loss -Complicates treatment, prognosis, outcomes DVT prophylaxis -Prophylaxis per primary service -Recommend SCDs Charges/Coding Visit Charges OBSV E&M: 13617 Initial observation care L2
--- NOTE | 2021-10-06 20:58 | HP.PCM_ITS ---
History and Physical History and Physical [facility] Patient Name: Charo Ayala : 1950 From:? DARBY LEDBETTER PA-C? DATE OF SURGERY:? 11/04/2021 SCHEDULED PROCEDURE:? revision left unicompartmental knee replacement to a total knee arthroplasty HISTORY OF PRESENT ILLNESS: Preoperative history and physical exam was performed on October 05, 2021.? This i s a 71-year-old female who is been having ongoing pain for the past 6 months with her left knee.? She underwent a previous left unicompartmental knee replacement by Dr. Uday Olivares on September 15, 2010.? Patient has had intermittent pain as well as aching pain.? Pain is increased with going up and down stairs, sitting, and walking.? Patient complains of instability with pain when walking.? Pain is located over the medial knee radiating into the lateral hip.? Patient denied any postoperative complications from the previous left unicompartmental knee replacement.? Patient did undergo a bone scan which showed no evidence of implant loosening.? Patient has tried rest, ice, elevation with no relief in symptoms.? She has attempted Tylenol with minimal relief.? After failing conservative measures and discussing treatment options with Dr. Heber Porter, the patient does wish to proceed with a revision left unicompartmental knee replacement to a total knee arthroplasty.? She denies medical history pertinent for sleep apnea, acid reflux, depression, and rheumatoid arthritis.? Currently denies any fevers, chills, recent infections.? No chest pain or shortness of breath. REVIEW OF SYSTEMS: Review Of Systems: Constitutional: Denies anorexia, anxiety, change in appetite, fever, difficulty sleeping, weight change. Cardiovasular: Denies chest pain, heart murmur, irregular heartbeat and periphe ral vascular disease. Respiratory: Reports sleep apnea, but denies asthma, cough, pneumonia, shortness of breath, tuberculosis and wheezing. Gastrointestinal: Reports heartburn, but denies constipation, diarrhea, nausea, rectal itching, bloody stools and vomiting. Genitourinary: Denies incontinence. Musculoskeletal: Denies leg swelling, pain, trouble walking and weakness. Skin: Denies Raynaud's, history of shingles and tattoo. Neurological: Reports numbness/tingling in her hands, but denies ambulatory dysfunction, dizziness and tremor Psychiatric: Denies anxiety, depression, insomnia, mental illness and stress. Hematologic/Lymphatic: Reports bleeding/bruising tendency, but denies anemia and past transfusion. Reviewed, no changes. PAST MEDICAL HISTORY: Advance Care Plan: Other Directive, LIVING WILL Effective Date: 02/11/2015 Other Directive, POA Effective Date: 02/11/2015 Past Medical History: Medical Problems: Sleep Apnea, Acid Reflux, Depression, Rheumatoid Arthritis Accidents: Fracture - RIGHT WRIST Surgical Hx: Tonsillectomy - [facility] Section - X2 LT Knee Arthroscopy - (05/08/2009) FRANCESCO @ [facility] LT Uni-Knee - (09/15/2010) THOR @ [facility] RT Knee Arthroscopy - (12/13/2013) [email or web address] Mole Removed - (2013) CANCER? Knee Replacement RT - (10/28/2015) [email or web address] RT Thumb Arthoplasty W/LT CTR - (11/29/2018) LILIANA @ [facility] Bilat Cataract - (06/2019) Dr. Rivera LT 3RD Finger Trigger Release - (11/23/2019) LILIANA @ [facility] RT 1St CMC Arthroplasty, RT FCR Tendon Transfer - (12/12/2019) SAW @ [facility] Right Total Knee Revision - (08/26/2021) SAW @ [facility] Anesthesia Complications: Breathing Issues - (2018) Assistive Devices: Glasses, Cpap Reviewed, no changes. SOCIAL HISTORY: Social History: Marital: .Occupation: Retired.Work Status: Retired.Hand Dominance: Right- Handed. Personal Habits:? Tobacco Use: Patient is a former smoker.Cigarette Use: Former.Smokeless Tobacco: Never Used Smokeless Tobacco.E-Cigarette Use: Never used.Alcohol: Occasionally.Drug Use: Denies Use.Enjoy Exercising: Exercises 1-3 X/Week. Reviewed, no changes. VITALS: Ht: 62 Wt: 211lb Wt k.710 BMI: 38.6 BP: 132/84 Pulse: 84 Resp: 18 T: 97.8 T: 36.6C Pain Level: 3 O2SatR: 97 ALLERGIES: Ampicillin? MEDICATIONS: Acetaminophen 500 mg Do not take more than 3000 mg Tylenol in a 24-hour period., Famotidine 20 mg daily, Docusate Sodium 100 mg AT bedtime, CVS D3 25 mcg (1000 Ut) daily, Psyllium 400 mg daily, Melatonin 10 mg 2po qhs, Escitalopram Oxalate 20 mg 1po qday, Meloxicam 15 mg 1po qday, Temazepam 30 mg 1po qday, Multi Vitamin? one po daily, Stool Softener? uad, Metamucil 0.36 gm 1po qday, Tylenol PM Extra Strength 500-25 mg 2po qday, Vitamin B12 1000 mcg 1po qday, Buspirone HCL 10 mg 1po qday, Folic Acid 1 mg 1 by mouth every day, Methotrexate 2.5 mg 5 once A week, Prednisone 10 mg as directed PRE-OP EXAM:? General appearance:NORMAL? ? ? Other: Eyes: Conjunctivae and lids: NORMAL? Pupils: ERR Ears, Nose, Mouth, and Throat: NORMAL? Other: Inspection of lips, teeth and gums: NORMAL? ?Other: Neck: Examination of neck: no masses noted. Respiratory: Assessment of respiratory effort: NORMAL? ?Other: ?Auscultation of lungs: clear to auscultation no wheezes, rhonchi or rales. Cardiovascular:? Auscultation of heart: regular rate and rhythm, no murmurs, gallops or rubs. PHYSICAL EXAMINATION: Left knee previous incision is well-healed without erythema or signs of infection.? His tenderness to palpation over the medial tibial plateau, medial joint line, and pes anserine.? Patient also has has IT band tenderness laterally.? Range of motion left knee: 0 extension 112 flexion with calf to thigh.? Sensation intact to light touch.? Neurovascularly intact. IMAGING STUDIES: Previous left knee x-rays reveal unicompartmental knee replacement with the medial compartment.? There does appear to be lucency under the far medial portion of the tibial plate.? There is progressive patellofemoral joint space narrowing and osteophyte formation in the lateral compartment which is cons istent with progressive osteoarthritis of the left knee. Previous bone scan did not reveal any significant loosening. IMPRESSION: 1.? Painful left unicompartmental knee replacement with progressive osteoarthritis 2.? Sleep apnea 3.? Gastroesophageal reflux disease 4.? Depression 5.? Rheumatoid arthritis PLAN: Dr. Heber Porter did discuss and review with the patient all treatment options including surgical versus nonsurgical options.? Patient does wish to proceed with the above-stated procedure.? Potential risks, benefits, and complications of the procedure were discussed in detail including but not limited to , infection, nerve and blood vessel damage, persistent pain, numbness, tingling, paresthesias, blood clot, pulmonary embolism, and requirement for possible further surgery.? The patient expressed full understanding and has no further questions for the doctor.? Patient does agree to proceed with the above-stated procedure and has signed the surgery consent form. We discussed the current risks associated with COVID 19.? This does include the risk of exposure while in the hospital.? Patient was reassured local hospitals have low infection rates and are taking all necessary precautions to avoid exposure to patients.? In addition, we discussed strategies that can be used to help limit exposure including those that limit the patient's time in the hospital.? Also using strategies to limit the patient's need for continued inpatient services after being discharged from the hospital.? Patient was notified that we will need to comply with any screening or testing the hospital wishes to perform or that surgery may be delayed for any positive results. This dictation was created using voice recognition software. Phonetic and/or grammatical errors may exist. ___? I have re-examined the patient.? There are no clinical changes since date of exam. ___? See progress notes for changes. ___? Dictated on admission Date: ? ? ?Time: Signature:
[2021-10-23 13:15] LABS: Magnesium 2.2 mg/dL (1.6-2.6)
--- NOTE | 2021-10-26 14:51 | CASEMGMT ---
TAMIA YOU Assessment: TC to pt for initial transition planning/care coordination assessment. RN AVELINO introduced self and role at [facility], pt voices understanding and consents to assessment. Care providers, pharmacy, and demographics verified/updated. Admitting Dx: L knee uni robot to total knee arthroplasty PCP:Stacey Specialists:sharon Porter; rayshawn Bell Preferred Pharmacy: [facility] Retail while inpatient Insurance: [facility], [employer] Prescription Benefit: yes LW/HPOA: Pt has a LW/DPOA on file at [facility]. Her DPOA is her dtr Maria Victoria Castillo. LNOK: Maria Victoria Castillo, dtr Living Arrangements: Pt lives alone in a single story house with 1 step to enter with a rail. Pt reports she is I in ADL's and denies concerns at home. Transportation: Pt drives self and denies concerns with transportation. Pt sister in law or rastafarian friend will assist with transportation post surgery. DME/HHC/SNF: Pt has a cane and FWW in the home. She states she does not currently use any AD now. Pt denies hx of HHC or SNF stays. Pt states no concerns with going home at time of dc. She has outpt therapy set up at [facility] on Nov 09. Pt states no further concerns/needs. CM to follow. Advised pt to ask CM if any further question/concerns/needs arise, voices understanding. Pt Goal: Home with outpt therapy set up Plan: Home with outpt therapy set up
[2021-11-04] VITALS (16 sets, daily range): BP systolic 136–163; BP diastolic 61–73; PULSE 73–99; RESP 16–18; TEMP 36.6–37.2; O2SAT 94–100; BMI 38.2
[2021-11-04] MEDS: Celecoxib 200 MG Capsule 400 MG PO (10:42)
[2021-11-04] MEDS: Acetaminophen 500 MG Tablet 1000 MG PO ×2 (10:42→21:31)
[2021-11-04] MEDS: Gabapentin 600 MG Tablet PO (10:43)
[2021-11-04] MEDS: Lactated Ringers 1,000 ML 125 ML IV ×2 (10:50→17:17)
[2021-11-04 11:00] LABS: Bedside Glucose 104 mg/dL (74-106)
--- NOTE | 2021-11-04 12:30 | FEM_PTH ---
PATIENT: TINA LINARES LOC: MS3 U#:[id number] AGE/SX: 71/F ROOM: [facility] RE11/04/[address]: Dr. Heber Porter MD : 1950 BED: 1 DIS: 11/05/2021 SPEC #: [id number] RECD: 11/05/21 10:57 STATUS: ENA RERosita #: [id number] LAUREN: 11/04/21 12:[address]: Heber Porter DEPT: SURGICAL PATHOLOGY RECD BY: Roxana Treviño ENTERED: 11/05/21 11:29 SP TYPE: FEM HEAD OTHR DR: MD Dr. Deniz Abrams MD Dr. Scott Hannan, MD Tissues: Femoral region, NOS Procedures: Decalcification bone/plaque Surgery Specimen Level V HEADER OPERATION: CARA, robotic unicompartmental knee to total knee arthroplasty PRE-OP DIAGNOSIS: Painful left unicompartmental knee replacement with progressive osteoarthritis TISSUE SUBMITTED: Left femoral and tibial bone MICROSCOPIC DIAGNOSIS Left femoral and tibial bone, total knee replacement/resection: Pieces of bone with degenerative osteoarthritic changes. GABY:sudarshan 11/11/2021 MICROSCOPIC DESCRIPTION Slides are reviewed. GROSS DESCRIPTION Received is one container designated left femoral and tibial bone. The specimen consists of multiple fragments of orellana-yellow bone measuring in aggregate 10 x 9 x 3 cm. No soft tissue is identified. A number of bony fragments contain articular surfaces consistent with tibial plateau and femoral condyle and displaying prominent osteophyte formation and bone erosion. [employer] Att[employer] sections are submitted in two cassettes after decalcification. / Diann 11/05/2021 TC:5 CPT: 89908, 11015
[2021-11-04] MEDS: Cefazolin 2 GM in 0.9% Normal Saline 100 ML IV (13:21)
[2021-11-04] MEDS: TXA 1000mg in NS100 100ml (IVPB at Closure) 660 MG IV (13:32)
[2021-11-04] MEDS: dexAMETHasone 10 MG/ML Vial IV (13:41)
[2021-11-04] MEDS: TXA 1000mg in NS100 100ml (IVPB at Incision) 660 MG IV (13:44)
--- NOTE | 2021-11-04 15:41 | OP.PCM_ITS ---
Report of Operation Date of Procedure: 11/04/21 Pre-Operative Diagnosis: Left knee failed medial compartment partial knee repla cement, progression of osteoarthritis and remaining compartments Post-Operative Diagnosis: Left knee failed medial compartment partial knee replacement, progression of osteoarthritis and remaining compartments Surgery/Procedure Performed:: Left knee robotic assisted revision total knee replacement entire femoral and tibial components Description of Surgical Findings:: Stable knee with good patella tracking. Patient had progression of arthrosis in the patellofemoral and lateral compartments. Implants were otherwise well fixed. Bony defects were addressed with metal augmentation. Surgeon: Heber Porter business development intern: Travis Pineda Type of Anesthesia: Spinal Anesthesiologist: Alex Serrano Special Medications: 2 g Ancef, 1 g TXA at incision, 1 g TXA closure, 10 mg Decadron, joint cocktail (5 mg Duramorph, 30 mL of 0.5% Ropivicaine, 1000 units of epinephrine, 30 mg of Toradol) Specimen's removed: Bony cuts Estimated Blood Loss (mL): 100 Fluids Replaced: 1300 ml Description of Procedure: Implants used: 1. [place] size 3 posterior stabilized cemented femoral distal component with 5 mm posterior medial augment. 2. [place] size 3 universal tibial baseplate with 12 x 50 mm cemented stem and 5 mm medial augment 3. [place] X3 16mm PS polyethylene 4. [place] X3 29 mm asymmetric patella Brief history operative indications: 71-year-old f with history of left knee previous medial compartment partial knee replacement and progression of patellofemoral and lateral compartment osteoarthritis with radiographic findings with loss of joint space, osteophyte formation and subchondral sclerosis. Failed conservative measures as mentioned in the H&P. Discussion of total knee arthroplasty as well as risk and benefits were discussed the patient including but not limited to blood loss, DVTs, PEs, neurovascular damage, general risk of anesthesia including loss of life, and stiffness or instability were discussed with patient. Patient demonstrated understanding and was able to sign informed consent. Procedure: On the date of procedure patient's left lower extremity was marked in the preoperative area. The patient was then taken back to the operating room where the patient was placed on the table in the supine position. All bony prominences were identified a well-padded. Anesthesia assumed control of the C-spine and airway and remained controlled throughout the remainder of the procedure. A tourniquet was placed on the left upper thigh and the leg was prepped in a sterile fashion. The surgeon then scrubbed at this time .Upon reentering the room left lower extremity was draped in a standard orthopedic fashion. A timeout was then called and everyone agreed upon the side, the site, the procedure to be performed, patient's identity and antibiotics given. Esmarch bandage was used to exsanguinate the extremity and the tourniquet was placed up to 250 mmHg with the knee in flexion. A midline skin incision was made and sharp dissection was taken down through skin subcutaneous tissue and fat. The standard medial parapatellar incision was made and the patella was subluxed laterally. An Appropriate deep MCL release was done and the fat pad was resected. At this time a complete synovectomy was performed with the knee in extension. Our attention was then directed to the patella. The patella was everted and a flat resection was made. The knee was then flexed up in 2 femoral pins were placed inside the incision and 2 tibial pins were placed outside the incision in the medial tibia bicortically. Once this was completed the 2 checkpoints in the femur and tibia were placed. Knee was then flexed up and the bony landmarks were registered. Once this was completed knee was taken through range of motion and manually stressed allowing us to a plan for an appropriate surgical plan. Based on the patient's ligamentous tension appropriate adjustments were made to the operative plan and ligament releases were done. After adjusting the surgical plan our attention was directed towards the implants. Osteotome was used to remove the femoral implant with minimal bone loss. However based on the previous cuts there was significant posterior medial condyle defect. We then directed our attention to the tibia where the osteotome was used to break up the bone cement interface. Again due to the previous resection there was significant medial compartment defect. The robotic arm was brought into the field sterilely and checkpoint and saw were registered. Based on the patient's deformity the tibial cut was made in 3 degrees of varus. The initial cut did not bring the medial compartment underneath the bony defect. We then changed the plan to 5 mm deeper and cut for a medial 5 mm augment. Our attention was directed to the femur. The robot was brought into the field sterilely and registered. Posterior condylar cuts, anterior chamfer cuts and anterior cuts were appropriately made for a size 3 femur. While making the posterior medial cut the defect was significant enough that we adjusted the plan for a 5 mm posterior medial augment. When these were completed the saws were switched out in the distal femoral and posterior chamfer cuts were made. Protecting the soft tissue throughout this time. A size 3 tibial base plate was selected. the knee was flexed to 90 degrees and the soft tissues and posterior osteophytes were removed from the joint. 40 cc of the periarticular injection was injected into the posterior medial corner of the joint. The appropriate trials were then placed on the femur and tibia. A trial polyethylene was trialed to ensure proper balancing and stability of the knee. The appropriate tibial internal rotation was then marked with a bovie. Our attention was then directed to the patella. The lug holes were drilled and the patella trial was placed. Patellar tracking was checked and deemed appropr iate. Once we were happy lug holes were drilled for the femur and trial components were removed. the tibia was subluxed and pinned into place and the keel was punched and drilled appropriately for a 12 x 50 mm stem. Final components were verified and opened, and cement was mixed in a vacuum. CardioFocus Simplex cement was used. The wound was copiously irrigated with normal saline. When the cement was ready the components were cemented into place starting with the tibia, femur and finally cementing the patella. The trial poly component was placed and the knee was placed in full extension. All excess cement was removed in the process. Once the cement had cured the tracking, alignment and balance were verified and a size 16 mm PS polyethylene component was placed. Once the final components were placed a 3-minute dilute Betadine lavage was performed followed by an Irrisept lavage was performed and the wound was copiously irrigated with normal saline solution and the periarticular injection was given. The wound was closed in a layer acosta fashion using #1 vicryl interrupted sutures for the arthrotomy, 2-0 interrupted Vicryl suture for the subcuticular layer and vivek for final skin closure. A sterile compressive dressing was then placed. The patient was then awakened from anesthesia, transferred to the [facility] and transferred to the PACU for recovery. Post op plan DVT ppx: ASA 81mg BID, thigh high compression stockings Follow up: in office in 2 weeks for wound check PT: to start POD #0 at hospital, outpatient PT should be arranged. Patient replaced on doxycycline 100 mg p.o. twice daily as we follow cultures My physician construction assistant was a vital part of this case. He was important in appropriate retraction during the case, and protection of soft tissues during bony cuts. His intimate knowledge of the case and my steps aided in safe and expedient completion of the procedure as well as appropriate position of the leg during the case. He was also vital in assisting with closure under my direct supervision. Due to the complexity of this case robotic arm was used to assist in the surgery to improve accuracy and clinical outcomes. Patient surgery involved removing femoral and tibial implants. We had to address bony defects and use stemmed implants for additional support. All this increased operative time so the surgery was more consistent with a 11421 related to the surgical description and duration of surgery. Complications No intraoperative complications Admit VTE Documentation VTE Present on Admission: No VTE Mechan Device Prophylaxis: SCD's and Thigh High BRAEDEN Hose VTE Pharm Prophylaxis ordered?: Yes
[2021-11-04] MEDS: Lactated Ringers 1,000 ML 999 ML IV (16:08)
--- NOTE | 2021-11-04 16:19 | RAD_ITS ---
STUDY: X-RAY - LEFT KNEE REASON FOR EXAM: Female, 71 years old. post op -- AP and Lateral xray of operative knee in PACU TECHNIQUE: 2 view(s) of the knee. COMPARISON: 08/26/2021 FINDINGS: Knee prosthesis is noted in anatomic alignment and position. RAD/Knee 1 or 2 Views IMPRESSION: Status post knee prosthesis placement. Electronically Signed: Jason Martin MD at 16:32 EDT ,
[2021-11-04] MEDS: Ensure Surgery 237 ML LIQUID PO (18:53)
--- NOTE | 2021-11-04 20:42 | PCM.PN.HOSP ---
Documented by User: FRIDA Williamson 11/04/21 20:48 Subjective Subjective Patient seen and examined. Patient lying in bed no distress noted. Objective Data Objective Data Vital Signs: Vital Signs Temp Pulse Resp BP Pulse Ox O2 Del Method O2 Flow Rate 97.8 F 78 18 142/61 H 98 Room Air 4 11/04/21 18:45 11/04/21 18:45 11/04/21 18:45 11/04/21 18:45 11/04/21 18:45 11/04/21 18:45 11/04/21 17:15 Oxygen Flow Rate (L/min) 4 Oxygen Delivery Method Room Air Weight: 209 lb 7.026 oz Body Mass Index (BMI) 38.2 Intake & Output: Intake and Output for Last 24 Hours 11/02/21 11/03/21 11/04/21 23:59 23:59 23:59 Intake Total 2161.17 / 2161.17 Balance 2161.17 / 2161.17 Lab / Micro Data Labs: Laboratory Results - last 24 hr 11/04/21 10:31: POC Glucose 104 Micro: Microbiology 10/23/21 10:35 Swab (Method) Nasal Screen MRSA/MSSA - Final Radiography Diagnostic Testing: Radiology Impression Knee X-Ray 11/04/21 16:19 IMPRESSION: Status post knee prosthesis placement. Electronically Signed: Jason Martin MD at 16:32 EDT , Physical Exam Const alert, oriented x3 and no apparent distress HEENT head/scalp atraumatic and moist oral mucous membranes Head and Scalp: normocephalic Eyes conjunctivae normal and no scleral icterus Neck supple Resp normal respiratory effort, normal air movement and clear to auscultation bilaterally Effort and Inspection: able to speak in complete sentences and symmetric chest movement Cardio regular rate, regular rhythm, S1 normal heart sound and S2 normal heart sound GI normal to inspection, nondistended, normoactive bowel sounds, soft to palpation and non-tender Extremity normal capillary refill Peripheral Pulses: Yes pulses 2+ throughout Left Lower Extremity: knee joint palpation (Nontender), ROM (Decreased) and neurovascular exam (Intact) Neuro oriented x3, moves all extremities, no focal motor deficits and no sensory deficits noted Speech: speech normal Psych affect normal Assessment & Plan Assessment/Plan (1) Depression: PLAN: Plan 1. Depression -Continue escitalopram 2. Rheumatoid arthritis -continue methotrexate -Continue meloxicam 3. Insomnia -Continue temazepam 4. Sleep apnea -Patient states she uses CPAP at home, ordered 5. Left knee replacement -Pain management per Dr. Porter -PT and OT to eval and treat -Continue cefazolin DVT prophylaxis-SCDs This patient was seen by FRIDA Williamson under the supervision of Dr. Mahajan. 14 minutes spent in clinical coordination of patient's plan of care. Documented by User: Dr. Andrzej Mahajan MD 11/04/21 21:12 Assessment & Plan Assessment/Plan (1) Depression: Charges/Coding Addendum Addendum: Patient was seen and examined independently. I agree with assessment and plan by FRIDA Williamson Patient is 71-year-old female with a significant history of psoriatic arthritis; and a left revision of total knee arthroplasty postop day 0 and for which internal service has been consulted for medical management including depression; psoriatic arthritis and postoperative management. The patient denies any symptoms at the time of evaluation. Physical exam: General: Well-nourished, well-developed. Head: Normocephalic, atraumatic, no tenderness Eyes: Vision is grossly intact. EOMI ENT, no trauma, moist mucous membranes, no rhinorrhea Neck: Nontender, full range of motion CVS: Regular rate and rhythm. S1-S2 present. No murmur, gallop or rub. Respiratory : clear to auscultation bilaterally, chest wall nontender, no wheezing Abdomen: Soft, nontender, nondistended, normal bowel sounds, no masses : Deferred Back: Nontender, no CVA tenderness, no midline spinal tenderness Extremities: Left knee with polar ice in place. Bilateral legs with Nish wrap and SCDs Skin: Normal color, no trauma, abrasions Neuro: Alert, oriented, cranial nerves II through XII grossly intact. Psychiatry: Normal mood. Normal affect. Not depressed. Not anxious. Assessment and plan Left knee robotic assisted revision total knee replacement entire femoral and tibial components Pain control Management by orthopedic surgeon. Psoriatic arthritis Continue methotrexate and meloxicam. Depression: Lexapro continued DVT prophylaxis Aspirin 81 mg p.o. twice daily; SCDs and thigh-high BRAEDEN hose Per orthopedics. Sixteen (16) minutes spent independently seeing patient and reviewing charts. Visit Charges Inpatient E&M: 16895 Subs Hosp L2
[2021-11-04] MEDS: Senna/Docusate Sodium 1 Tablet 2 TABLET PO (21:30)
[2021-11-04] MEDS: MELATONIN 10 MG TABLET 20 MG PO (21:30)
[2021-11-04] MEDS: Aspirin 81 MG TAB.CHEW PO (21:31)
[2021-11-04] MEDS: Cefazolin 1 GM/50 ML BAG IV (22:41)
[2021-11-05] VITALS (8 sets, daily range): BP systolic 133–137; BP diastolic 62–78; PULSE 76–81; RESP 15–18; TEMP 36.4–36.8; O2SAT 97–98
[2021-11-05] MEDS: oxyCODONE 5 MG Tablet PO (00:56)
[2021-11-05] MEDS: 0.9% Saline Lock 10 ML Syringe IV (00:56)
--- NOTE | 2021-11-05 03:51 | CPS ---
Pt brought CPAP from home. RT set it up for pt with distilled water included.
[2021-11-05] MEDS: Acetaminophen 500 MG Tablet 1000 MG PO (05:50)
[2021-11-05] MEDS: Cefazolin 1 GM/50 ML BAG IV (05:51)
[2021-11-05 06:50] LABS: Hematocrit 35.3 % (37-47); Mean Corpuscular Hgb 34.4 pg (27.0-32.0); Mean Corpuscular Volume 101.1 fL (81-99); Mean Platelet Vol. 10.2 fl (6.2-12.0); Platelet Count 205 K/mm3 (150-450); RBC Distribution Width CV 13.3 % (11.6-14.6); RBC Distribution Width SD 49.1 fl (35.1-43.9); Red Blood Count 3.49 M/mm3 (4.2-5.4); White Blood Count 15.6 K/mm3 (4.4-11.0)
[2021-11-05 07:14] LABS: Anion Gap 7 (5-15); BUN 12 mg/dL (7-18); BUN/Creat Ratio 18.4 RATIO (10-20); Calcium,Total 8.6 mg/dL (8.5-10.1); Chloride 108 mmol/L (98-107); Creatinine, Serum 0.65 mg/dL (0.55-1.02); EST Glomerular Filtration Rate 95 mL/min (>60); Est Glom Filt Rate - Afr Amer 115 mL/min (>60); Estimated Creatinine Clearance 39.63 ml/min; Glucose 122 mg/dL (74-106); Potassium 4.2 mmol/L (3.5-5.1); Sodium Level 141 mmol/L (136-145)
[2021-11-05] MEDS: Aspirin 81 MG TAB.CHEW PO (08:39)
[2021-11-05] MEDS: Ensure Surgery 237 ML LIQUID PO (08:40)
[2021-11-05] MEDS: Folic Acid 1 MG Tablet 2 MG PO (08:40)
[2021-11-05] MEDS: Famotidine 20 MG Tablet PO (08:41)
[2021-11-05] MEDS: Escitalopram Oxalate 20 MG Tablet PO (08:41)
[2021-11-05] MEDS: Senna/Docusate Sodium 1 Tablet 2 TABLET PO (08:42)
[2021-11-05] MEDS: Cholecalciferol (VIT D3) 25 MCG TABLET (1,000 UNITS) PO (08:43)
--- NOTE | 2021-11-05 10:14 | PN.ORTHO_ITS ---
Subjective Subjective The patient was sitting in bed upon examination. Patient denies any chest pain, shortness of breath, dizziness, lightheadedness, nausea or vomiting, or calf pain. Pain is controlled on medications. No adverse overnight events. Patient overall is doing well this morning. She is already had physical therapy and tolerated this well. She would like to be discharged home today. Patient has a majority of her medications already at home. We will E scribe the famotidine and doxycycline.. Objective Data Objective Data Vital Signs: Vital Signs Temp Pulse Resp BP Pulse Ox O2 Del Method O2 Flow Rate 97.5 F L 81 15 137/78 H 97 Room Air 4 11/05/21 08:06 11/05/21 08:06 11/05/21 08:06 11/05/21 08:06 11/05/21 08:06 11/05/21 08:06 11/05/21 06:00 Oxygen Flow Rate (L/min) 4 Oxygen Delivery Method Room Air Weight: 95 kg Body Mass Index (BMI) 38.2 Intake & Output: Intake and Output for Last 24 Hours 11/03/21 11/04/21 11/05/21 23:59 23:59 23:59 Intake Total 2211.17 / 3011.17 1850 / 1850 Balance 2211.17 / 3011.17 185 / 1850 Lab / Micro Data Result Diagrams: 11/05/21 04:30 11/05/21 04:30 Labs: Laboratory Results - last 24 hr 11/04/21 10:31: POC Glucose 104 11/05/21 04:30: WBC 15.6 H, RBC 3.49 L, Hgb 12.0, Hct 35.3 L, MCV 101.1 H, MCH 34.4 H, MCHC 34.0, RDW Std Deviation 49.1 H, RDW Coeff of [place] 13.3, Plt Count 205, MPV 10.2 11/05/21 04:30: Sodium 141, Potassium 4.2, Chloride 108 H, Carbon Dioxide 26.0, Anion Gap 7, BUN 12, Creatinine 0.65, Estim Creat Clear Calc 39.63, Est GFR (MDRD) Af Amer 115, Est GFR (MDRD) Non-Af 95, BUN/Creatinine Ratio 18.4, Glucose 122 H, Calcium 8.6 Micro: Microbiology 10/23/21 10:35 Swab (Method) Nasal Screen MRSA/MSSA - Final Radiography Diagnostic Testing: Radiology Impression Knee X-Ray 11/04/21 16:19 IMPRESSION: Status post knee prosthesis placement. Electronically Signed: Jason Martin MD at 16:32 EDT , Physical Exam Narrative Vital signs stable and afebrile. SCDs and BRAEDEN hose are in place bilaterally Patient is able to plantarflex and dorsiflex actively. Sensation is intact to light touch to saphenous, sural, superficial and deep peroneal, and tibial distribution. Dressing is clean dry and intact. Negative Homans bilaterally, negative signs and symptoms of DVT. Const alert, oriented x3 and no apparent distress Assessment & Plan Assessment/Plan (1) Status post revision of total replacement of left knee: PLAN: 1. S/P left revision unicompartmental knee replacement to a total knee arthroplasty POD #1 2. Continue Pain Medications: Tylenol, meloxicam, oxycodone. Do not take any other nonsteroidal anti-inflammatories while using meloxicam/Mobic. 3. DVT Prophylaxis: Take 81 mg aspirin twice daily for 4 weeks postoperatively for DVT prophylaxis. 4. PT/OT: Weightbearing as tolerated with walker 5. H & H: 12.0/35.3, asymptomatic. Postoperative anemia secondary to acute blood loss from surgery without any intra operative complications. 6. Reactive leukocytosis: Currently 15.6, afebrile. Patient did receive Decadron intraoperatively 7. Encouraged Incentive Spirometry 8. Continue antibiotics while following cultures: Currently on doxycycline for 2 weeks postoperatively. Cultures are currently pending. Discussed with the patient side effects of the medication which could include sensitivity to sunlight and should take appropriate precautions. Also recommended probiotic while on antibiotics. She voiced understanding agreement. 9. Continue postoperative medical management per medicine: Case was discussed and they are okay with discharge home today 10. Disposition: Overall patient is doing well this morning and plan will be for discharge home later this afternoon after physical therapy as long as patient's pain is well controlled. Prescriptions will be E scribed to [facility] Patient already has Tylenol, meloxicam, oxycodone, aspirin, and senna at home. We will E scribe doxycycline and famotidine. She will follow-up per postop instructions. She has outpatient physical therapy established. She will contact her office with any concerns or questions postoperatively. I have reviewed the [place] Automated Rx Reporting System (OARRS) report for this p atient for refill pattern and other prescriber involvement as part of the appropriate surveillance for the provision of acute and chronic controlled medications. The report was requested and reviewed on the date of this entry and was considered in the prescribing process. This dictation was created using voice recognition software. Phonetic and/or grammatical errors may exist.
--- NOTE | 2021-11-05 10:20 | DCINST_ITS ---
Discharge Instructions Diet Discharge Diet: No restrictions Activity Discharge Activity: May Not Drive (No driving until you can walk 100 feet without the use of cane or walker and no longer taking narcotics) May shower in (days): 1 (Please turn dressing away from water. Okay to get wet as long as dressing is intact to skin.) Ice area for (Minutes): 20 (Every 1-2 hours while awake[address] place barrier between the skin and ice pack.) Weight Bearing Status: Weight bearing as tolerated (With walker) Keep extremity elevated above heart level: Operative Extremity Dressing / Incision Call your doctor if your incision/area has: Continuous Slow Oozing, Sudden Increased Bleeding, Increased Pain/ Swelling, Increased Redness and Foul Smelling Discharge Call your doctor if you observe: Fever of 101 or Higher, Coldness, Increased Pain, Numbness or Tingling, Change in Color, Shortness of breath, Chest pain, Calf discomfort and Uncontrolled pain Remove Dressing in: 4 days (Okay to remove dressings on November 09, 2021) Additional Dressing/Incision Instructions:: Follow [facility] Post-op Instructions. Once postoperative dressing has been removed only use gentle soap and water over the incision. Do not use any ointments, Neosporin, salves, alcohol pads over the incision for 6 weeks postoperatively. Do not submerge underwater for 6 weeks postoperatively. Continue with BRAEDEN hose/elastic stockings for 2 weeks postoperatively. May remove at nighttime but needs to be placed back on the leg during the day. Do NOT use alcohol with narcotic pain medication. Do NOT make important decisions while taking narcotic medication. If you have problems with taking your medication (rash, itching, nausea, etc.) call the office at once. Follow Up Care Test Results: Test results from this visit will be discussed in further detail at your follow- up appointment, if applicable. Discharge Plan Admission Admit Date/Time: 11/04/21 09:38 Attending Provider: Heber Porter Primary Care Provider: Eddie Ibarra Consulting Providers: Alex Serrano ; Deniz Valdivia Discharge Orders/Prescriptions Prescriptions: New acetaminophen 500 mg Tablet 1,000 mg PO Q8 14 Days Qty: 84 0RF Rx Instructions: Do not take more than 3000 mg Tylenol in a 24-hour period. aspirin 81 mg Tablet,Chewable 81 mg PO BIDCM Qty: 0 0RF Rx Instructions: Take 81 mg aspirin twice daily for 4 weeks postoperatively for DVT prophylaxis. doxycycline monohydrate 100 mg Capsule 100 mg PO BID 13 Days Qty: 26 0RF meloxicam 7.5 mg Tablet 7.5 mg PO BID Qty: 0 0RF Rx Instructions: Do not take any other nonsteroidal anti-inflammatories while using meloxicam/Mobic. famotidine 20 mg Tablet 20 mg PO DAILY Qty: 30 0RF oxycodone 5 mg Tablet 5 - 10 mg PO Q4H PRN PRN (Reason: Pain Score 4-10) Qty: 0 0RF Rx Instructions: Take 1 to 2 tablets every 4 hours as needed for pain sennosides-docusate sodium [Stool Softener-Stimulant Laxat] 8.6-50 mg Tablet 2 tab PO BID Qty: 0 0RF Rx Instructions: Take until first bowel movement, then as needed Continued temazepam [Restoril] 30 mg capsule 30 mg PO QHS melatonin 10 mg tablet 20 mg PO HS CertaVite Senior 0.4-300-250 mg-mcg-mcg tablet 1 tab PO DAILY escitalopram oxalate 20 MG tablet 20 mg PO DAILY Label Comments: mood meloxicam 7.5 MG tablet 15 mg PO DAILY methotrexate sodium 2.5 mg Tablet 15 mg PO SA folic acid 1 mg Tablet 2 mg PO DAILY cholecalciferol (vitamin D3) [Vitamin D3] 25 mcg (1,000 unit) Capsule 25 mcg PO DAILY psyllium husk [Metamucil] 0.4 gram Capsule 0.4 g PO DAILY cyanocobalamin-liver extract Tablet 1 tab PO DAILY Discontinued docusate sodium [Stool Softener] 100 mg Capsule 200 mg PO QHS famotidine 20 mg tablet 20 mg PO PRN PRN (Reason: GERD) Referrals / Follow Up: Physical,therapy [Other] - 11/09/21 Eddie Ibarra MD [Primary Care Provider] - Travis Pineda PA-C [Med Staff - [facility]] - 11/19/21 1:00 pm Disposition Disposition (needs filled in before D/C Order can be placed): Home, Self Care
--- NOTE | 2021-11-05 10:44 | CASEMGMT ---
TAMIA YOU NOTE: Pt being discharged today. TAMIA YOU to room. Introduced self and role. Pt resting in bed. Dtr @ bedside. Pt denies having any discharge/home-going needs. She confirms she still plans to do OP therapy @ [facility], with 1st appt on 11/09. Anu BSN TAMIA YOU
== END 2021-11-05 13:20 | disposition home or self-care (01) | DRG 468 ==
LOC: ACINP 09:41 → MS3 15:54
PROVIDERS: Anesthesiology; Admitting Provider Specialist; PCP Family Medicine; Referring Provider Specialist; Visit Provider Specialist
PROC: 0SRD0JZ Replacement of Left Knee Joint with Synthetic Substitute, Open Approach (ICD-10-PCS; CPT 27447; principal; 2021-11-04 12:00)
DX: T84.023A Instability of internal left knee prosthesis, initial encounter (principal); L40.50 Arthropathic psoriasis, unspecified; E66.01 Morbid (severe) obesity due to excess calories; M06.9 Rheumatoid arthritis, unspecified; E55.9 Vitamin D deficiency, unspecified; G47.33 Obstructive sleep apnea (adult) (pediatric); K21.9 Gastro-esophageal reflux disease without esophagitis; G25.81 Restless legs syndrome; L40.9 Psoriasis, unspecified; M17.12 Unilateral primary osteoarthritis, left knee; F32.A Depression, unspecified; Z79.1 Long term (current) use of non-steroidal anti-inflammatories (NSAID); G47.00 Insomnia, unspecified; H91.90 Unspecified hearing loss, unspecified ear; Z68.38 Body mass index [BMI] 38.0-38.9, adult; Z87.891 Personal history of nicotine dependence; Z79.891 Long term (current) use of opiate analgesic; Z96.651 Presence of right artificial knee joint
CPT/HCPCS: 36415; 73560; 80048; 82962; 83735; 85027; 87015; 87070; 87075; 87081; 87102; 87116; 87205; 87206; 88307; 88311; 97110; 97162; 97166; 97530; 97535; 99251; C1776; J7120; A4216; G0463; J2405; J3475

== ENCOUNTER 2021-11-11 16:21 | Outpatient (CLI) | payer MEDICARE, OTHER, SELFPAY ==
--- NOTE | 2021-11-11 16:24 | VDLE_ITS ---
Reason For Study: LEG PAIN RIGHT LEFT CFV is compressible, spontaneous, phasic, GSV is normal. competent and demonstrates normal CFV is compressible, spontaneous, phasic, augmentation. competent, and demonstrates normal Procedure augmentation. This is a venous duplex using B-mode, color FV is compressible, spontaneous, phasic, flow and spectral Doppler. competent and demonstrates normal Exam performed in department. augmentation. The exam was diagnostic. POP V is compressible, spontaneous, phasic, A preliminary report was called and/or faxed competent and demonstrates normal to Heber Porter. augmentation. T/P Trunk is compressible. PTV is compressible. LT PerV is compressible. Edema noted throughout left calf area. VL/Venous Duplex US, Unilateral Interpretation Summary There is no evidence of left lower extremity deep vein thrombosis. Left great s aphenous vein appears patent and compressible segmentally. Normal flow patterns right common femoral vein Notation made of left calf edema. Ordering Physician: Heber Porter Referring Physician: Eddie Ibarra Performed By: Melchor Hayden RVT
== END 2021-11-11 23:59 | disposition home or self-care (01) ==
LOC: CVS 16:22
PROVIDERS: PCP Family Medicine; Referring Provider Specialist; Visit Provider Specialist
DX: M79.662 Pain in left lower leg (principal); M06.4 Inflammatory polyarthropathy; M17.0 Bilateral primary osteoarthritis of knee; M19.041 Primary osteoarthritis, right hand; M19.042 Primary osteoarthritis, left hand; F32.A Depression, unspecified; F41.9 Anxiety disorder, unspecified; K21.9 Gastro-esophageal reflux disease without esophagitis; K59.00 Constipation, unspecified; Z79.899 Other long term (current) drug therapy
CPT/HCPCS: 36415; 80053; 85025; 93971

== ENCOUNTER → 2021-11-11 | Outpatient (CLI) | payer MEDICARE, OTHER, SELFPAY ==
[2021-11-11 15:32] LABS: Absolute Lymphocyte Count 2.03 X10^3/uL (0.83-4.51); Absolute Neutrophil Count 4.2 X10^3/uL (2.0-7.7); Basophil# 0.07 X10^3/uL; Eosinophil# 0.12 X10^3/uL; Eosinophils% 1.7 % (0-5); Hematocrit 36.7 % (37-47); Hemoglobin 12.2 g/dL (12.0-15.0); Lymphocyte # 2.03 X10^3/ul (0.83-4.51); Lymphocyte % 28.1 % (19-41); Mean Corp Hgb Conc 33.2 g/dL (32-36); Mean Corpuscular Hgb 34.5 pg (27.0-32.0); Mean Corpuscular Volume 103.7 fL (81-99); Mean Platelet Vol. 9.1 fl (6.2-12.0); Monocyte# 0.72 X10^3/uL; NRBC Flagged by Analyzer 0 % (0-5); Neutrophil # 4.24 X10^3/uL (2.7-7.7); Neutrophil % 58.5 % (47-70); Platelet Count 297 K/mm3 (150-450); RBC Distribution Width CV 13.4 % (11.6-14.6); RBC Distribution Width SD 51.4 fl (35.1-43.9); Red Blood Count 3.54 M/mm3 (4.2-5.4); White Blood Count 7.2 K/mm3 (4.4-11.0)
[2021-11-11 16:23] LABS: ALB/GLOB Ratio 0.8 RATIO (0.9-2.4); AST(SGOT) 19 U/L (15-37); Alanine Aminotransfer ALT/SGPT 20 U/L (13-56); Alkaline Phosphatase 46 U/L (45-117); Anion Gap 5 (5-15); BUN 16 mg/dL (7-18); Calcium,Total 8.8 mg/dL (8.5-10.1); Chloride 105 mmol/L (98-107); EST Glomerular Filtration Rate 75 mL/min (>60); Est Glom Filt Rate - Afr Amer 90 mL/min (>60); Globulin 3.8 g/dL (2.2-4.2); Glucose 111 mg/dL (74-106); Protein, Total 6.8 g/dL (6.4-8.2); Sodium Level 140 mmol/L (136-145)
== END | disposition home or self-care (01) ==
LOC: MTLAB 13:54
PROVIDERS: PCP Family Medicine; Referring Provider Internal Medicine Rheumatology; Visit Provider Internal Medicine Rheumatology
DX: M06.4 Inflammatory polyarthropathy (principal); M17.0 Bilateral primary osteoarthritis of knee; M19.041 Primary osteoarthritis, right hand; M19.042 Primary osteoarthritis, left hand; F32.A Depression, unspecified; F41.9 Anxiety disorder, unspecified; K21.9 Gastro-esophageal reflux disease without esophagitis; K59.00 Constipation, unspecified; Z79.899 Other long term (current) drug therapy
CPT/HCPCS: 36415; 80053; 85025

== ENCOUNTER → 2022-01-12 | Outpatient (CLI) | payer MEDICARE, OTHER, SELFPAY ==
[2022-01-12 10:03] LABS: Absolute Lymphocyte Count 1.19 X10^3/uL (0.83-4.51); Absolute Neutrophil Count 2.1 X10^3/uL (2.0-7.7); Basophil# 0.06 X10^3/uL; Basophil% 1.6 % (0-1); Eosinophil# 0.05 X10^3/uL; Eosinophils% 1.3 % (0-5); Hematocrit 41.6 % (37-47); Hemoglobin 13.9 g/dL (12.0-15.0); Lymphocyte # 1.19 X10^3/ul (0.83-4.51); Lymphocyte % 31.2 % (19-41); Mean Corp Hgb Conc 33.4 g/dL (32-36); Mean Corpuscular Hgb 33.7 pg (27.0-32.0); Mean Platelet Vol. 9.3 fl (6.2-12.0); Monocyte% 10.5 % (0-10); NRBC Flagged by Analyzer 0 % (0-5); Neutrophil # 2.12 X10^3/uL (2.7-7.7); Neutrophil % 55.4 % (47-70); Platelet Count 259 K/mm3 (150-450); RBC Distribution Width CV 13.3 % (11.6-14.6); RBC Distribution Width SD 49.3 fl (35.1-43.9); Red Blood Count 4.12 M/mm3 (4.2-5.4); White Blood Count 3.8 K/mm3 (4.4-11.0)
[2022-01-12 10:26] LABS: AST(SGOT) 20 U/L (15-37); Alanine Aminotransfer ALT/SGPT 19 U/L (13-56); Albumin, Serum 3.4 g/dL (3.2-5.0); Alkaline Phosphatase 62 U/L (45-117); Anion Gap 8 (5-15); BUN 14 mg/dL (7-18); BUN/Creat Ratio 18.5 RATIO (10-20); Calcium,Total 8.9 mg/dL (8.5-10.1); Chloride 104 mmol/L (98-107); Creatinine, Serum 0.76 mg/dL (0.55-1.02); EST Glomerular Filtration Rate 80 mL/min (>60); Est Glom Filt Rate - Afr Amer 96 mL/min (>60); Globulin 3.4 g/dL (2.2-4.2); Glucose 103 mg/dL (74-106); Protein, Total 6.8 g/dL (6.4-8.2); Sodium Level 140 mmol/L (136-145)
== END | disposition home or self-care (01) ==
LOC: MTLAB 08:46
PROVIDERS: PCP Family Medicine; Referring Provider Internal Medicine Rheumatology; Visit Provider Internal Medicine Rheumatology
DX: M06.4 Inflammatory polyarthropathy (principal); Z79.899 Other long term (current) drug therapy
CPT/HCPCS: 36415; 80053; 85025

== ENCOUNTER → 2022-03-11 | Outpatient (CLI) | payer MEDICARE, OTHER, SELFPAY ==
[2022-03-11 17:14] LABS: Absolute Lymphocyte Count 1.85 X10^3/uL (0.83-4.51); Absolute Neutrophil Count 3.2 X10^3/uL (2.0-7.7); Basophil# 0.07 X10^3/uL; Basophil% 1.2 % (0-1); Eosinophil# 0.06 X10^3/uL; Hematocrit 45.2 % (37-47); Hemoglobin 14.5 g/dL (12.0-15.0); Lymphocyte # 1.85 X10^3/ul (0.83-4.51); Lymphocyte % 32.3 % (19-41); Mean Corp Hgb Conc 32.1 g/dL (32-36); Mean Corpuscular Hgb 32.2 pg (27.0-32.0); Mean Corpuscular Volume 100.4 fL (81-99); Mean Platelet Vol. 9.2 fl (6.2-12.0); Monocyte# 0.54 X10^3/uL; Monocyte% 9.4 % (0-10); NRBC Flagged by Analyzer 0 % (0-5); Neutrophil # 3.18 X10^3/uL (2.7-7.7); Neutrophil % 55.8 % (47-70); Platelet Count 254 K/mm3 (150-450); RBC Distribution Width CV 13.7 % (11.6-14.6); RBC Distribution Width SD 49.7 fl (35.1-43.9); White Blood Count 5.7 K/mm3 (4.4-11.0)
[2022-03-11 18:01] LABS: ALB/GLOB Ratio 0.7 RATIO (0.9-2.4); AST(SGOT) 15 U/L (15-37); Alanine Aminotransfer ALT/SGPT 20 U/L (13-56); Albumin, Serum 3.5 g/dL (3.2-5.0); Alkaline Phosphatase 61 U/L (45-117); Anion Gap 7 (5-15); BUN 15 mg/dL (7-18); BUN/Creat Ratio 18.9 RATIO (10-20); Calcium,Total 9.1 mg/dL (8.5-10.1); Chloride 103 mmol/L (98-107); EST Glomerular Filtration Rate 75 mL/min (>60); Est Glom Filt Rate - Afr Amer 91 mL/min (>60); Globulin 4.8 g/dL (2.2-4.2); Glucose 104 mg/dL (74-106); Potassium 3.8 mmol/L (3.5-5.1); Protein, Total 8.3 g/dL (6.4-8.2); Sodium Level 139 mmol/L (136-145); Thyroid Stim Hormone (TSH) 0.65 uIU/mL (0.358-3.74)
[2022-03-11 18:40] LABS: Hepatitis C Antibody Non-Reactive (Nonreactive); Vitamin D,25 Hydroxy 36.3 ng/mL
== END | disposition home or self-care (01) ==
LOC: POLAB3 15:09
PROVIDERS: PCP Family Medicine; Visit Provider Family Medicine Geriatric Medicine
DX: Z13.39 Encounter for screening examination for other mental health and behavioral disorders (principal); E78.5 Hyperlipidemia, unspecified; E55.9 Vitamin D deficiency, unspecified; N39.0 Urinary tract infection, site not specified
CPT/HCPCS: 36415; 80053; 82306; 84443; 85025; 86803; 87086; 87088

== ENCOUNTER → 2022-03-16 | Outpatient (CLI) | payer MEDICARE, OTHER, SELFPAY ==
[2022-03-16 14:41] LABS: Absolute Lymphocyte Count 1.77 X10^3/uL (0.83-4.51); Absolute Neutrophil Count 2.9 X10^3/uL (2.0-7.7); Basophil# 0.07 X10^3/uL; Basophil% 1.3 % (0-1); Eosinophil# 0.14 X10^3/uL; Eosinophils% 2.6 % (0-5); Hematocrit 44.8 % (37-47); Hemoglobin 14.6 g/dL (12.0-15.0); Lymphocyte # 1.77 X10^3/ul (0.83-4.51); Lymphocyte % 32.4 % (19-41); Mean Corp Hgb Conc 32.6 g/dL (32-36); Mean Corpuscular Hgb 32.6 pg (27.0-32.0); Mean Platelet Vol. 9.3 fl (6.2-12.0); NRBC Flagged by Analyzer 0.4 % (0-5); Neutrophil # 2.86 X10^3/uL (2.7-7.7); Neutrophil % 52.3 % (47-70); Platelet Count 251 K/mm3 (150-450); RBC Distribution Width CV 13.4 % (11.6-14.6); RBC Distribution Width SD 49.7 fl (35.1-43.9); Red Blood Count 4.48 M/mm3 (4.2-5.4); White Blood Count 5.5 K/mm3 (4.4-11.0)
[2022-03-16 15:09] LABS: ALB/GLOB Ratio 0.9 RATIO (0.9-2.4); AST(SGOT) 18 U/L (15-37); Alanine Aminotransfer ALT/SGPT 23 U/L (13-56); Albumin, Serum 3.5 g/dL (3.2-5.0); Alkaline Phosphatase 63 U/L (45-117); Anion Gap 5 (5-15); BUN 15 mg/dL (7-18); Calcium,Total 9.2 mg/dL (8.5-10.1); Chloride 104 mmol/L (98-107); Creatinine, Serum 0.83 mg/dL (0.55-1.02); EST Glomerular Filtration Rate 71 mL/min (>60); Est Glom Filt Rate - Afr Amer 86 mL/min (>60); Globulin 4.1 g/dL (2.2-4.2); Glucose 94 mg/dL (74-106); Protein, Total 7.6 g/dL (6.4-8.2); Sodium Level 140 mmol/L (136-145)
== END | disposition home or self-care (01) ==
LOC: MTLAB 12:36
PROVIDERS: PCP Family Medicine; Referring Provider Internal Medicine Rheumatology; Visit Provider Internal Medicine Rheumatology
DX: M06.4 Inflammatory polyarthropathy (principal); M17.0 Bilateral primary osteoarthritis of knee; M19.041 Primary osteoarthritis, right hand; M19.042 Primary osteoarthritis, left hand; F32.A Depression, unspecified; F41.9 Anxiety disorder, unspecified; K21.9 Gastro-esophageal reflux disease without esophagitis; K59.00 Constipation, unspecified; Z79.899 Other long term (current) drug therapy
CPT/HCPCS: 36415; 80053; 85025

== ENCOUNTER → 2022-04-12 | Outpatient (CLI) | payer MEDICARE, OTHER, SELFPAY ==
--- NOTE | 2022-04-12 10:18 | BI_ITS ---
MAMMOGRAPHY - BILATERAL SCREENING REASON FOR EXAM: Female, 71 years old. Routine annual screening examination. PERTINENT HISTORY: Non-contributory. TECHNIQUE: Digital bilateral breast justus (3D mammographic acquisition) in the CC and MLO projections. 2-D mediolateral oblique (MLO) and craniocaudad (CC) views of both breasts were obtained. CAD: Full Field Digital Mammography with Computer Added Detection was performed. COMPARISON: Comparison is made with prior study dated 09/03/2021 and April 03, 2020. FINDINGS: Breast Composition: The breasts are heterogeneously dense, which may obscure small masses. There are no dominant masses or suspicious calcifications. Stable scattered bilateral microcalcifications. No other significant abnormalities are identified. There has been no significant change since the prior study. BI/SCRN MAMM (CAD)W/JUSTUS BILAT IMPRESSION: Stable bilateral screening mammogram. Yearly follow-up mammogram recommended. (A) ASSESSMENT CATEGORY: BIRADS Category 2: Benign. A letter regarding these results will be sent to the patient by the facility within 30 days. Approximately 10% of breast cancers are not detected by mammography. A normal mammogram should not delay biopsy of a clinically suspicious abnormality. [id number] Electronically Signed: Tyrell Kuhn MD at 12:26 EST ,
== END | disposition home or self-care (01) ==
LOC: OPBI 10:16
PROVIDERS: PCP Family Medicine; Visit Provider Family Medicine Geriatric Medicine
DX: Z12.31 Encounter for screening mammogram for malignant neoplasm of breast (principal)
CPT/HCPCS: 77063; 77067

== ENCOUNTER → 2022-05-31 | Outpatient (CLI) | payer MEDICARE, OTHER, SELFPAY | END | disposition home or self-care (01) | LOC: PSN 12:06 | PROVIDERS: PCP Family Medicine Geriatric Medicine; Referring Provider Family Medicine Geriatric Medicine; Visit Provider Family Medicine Geriatric Medicine | DX: R68.83 Chills (without fever) (principal) | CPT/HCPCS: 87635; 87804; 87807; C9803; U0003; U0005 ==

== ENCOUNTER → 2022-06-08 | Outpatient (CLI) | payer MEDICARE, OTHER, SELFPAY ==
[2022-06-08 12:20] LABS: Absolute Lymphocyte Count 2.08 X10^3/uL (0.83-4.51); Absolute Neutrophil Count 3.6 X10^3/uL (2.0-7.7); Basophil# 0.08 X10^3/uL; Basophil% 1.2 % (0-1); Eosinophils% 1.4 % (0-5); Hematocrit 45.2 % (37-47); Hemoglobin 14.8 g/dL (12.0-15.0); Lymphocyte # 2.08 X10^3/ul (0.83-4.51); Lymphocyte % 30.1 % (19-41); Mean Corp Hgb Conc 32.7 g/dL (32-36); Mean Corpuscular Hgb 33.6 pg (27.0-32.0); Mean Corpuscular Volume 102.5 fL (81-99); Mean Platelet Vol. 9.3 fl (6.2-12.0); Monocyte# 0.92 X10^3/uL; Monocyte% 13.3 % (0-10); NRBC Flagged by Analyzer 0 % (0-5); Neutrophil # 3.61 X10^3/uL (2.7-7.7); Neutrophil % 52.3 % (47-70); Platelet Count 262 K/mm3 (150-450); RBC Distribution Width CV 14.1 % (11.6-14.6); RBC Distribution Width SD 52.7 fl (35.1-43.9); Red Blood Count 4.41 M/mm3 (4.2-5.4); White Blood Count 6.9 K/mm3 (4.4-11.0)
[2022-06-08 12:42] LABS: ALB/GLOB Ratio 0.8 RATIO (0.9-2.4); AST(SGOT) 18 U/L (15-37); Alanine Aminotransfer ALT/SGPT 29 U/L (13-56); Albumin, Serum 3.3 g/dL (3.2-5.0); Alkaline Phosphatase 61 U/L (45-117); Anion Gap 5 (5-15); BUN 16 mg/dL (7-18); BUN/Creat Ratio 20.9 RATIO (10-20); Calcium,Total 9.3 mg/dL (8.5-10.1); Chloride 105 mmol/L (98-107); Creatinine, Serum 0.77 mg/dL (0.55-1.02); EST Glomerular Filtration Rate 78 mL/min (>60); Est Glom Filt Rate - Afr Amer 95 mL/min (>60); Globulin 4.4 g/dL (2.2-4.2); Glucose 90 mg/dL (74-106); Potassium 4.3 mmol/L (3.5-5.1); Protein, Total 7.7 g/dL (6.4-8.2); Sodium Level 139 mmol/L (136-145)
== END | disposition home or self-care (01) ==
LOC: MTLAB 10:01
PROVIDERS: PCP Family Medicine Geriatric Medicine; Referring Provider Internal Medicine Rheumatology; Visit Provider Internal Medicine Rheumatology
DX: M06.4 Inflammatory polyarthropathy (principal); Z79.899 Other long term (current) drug therapy
CPT/HCPCS: 36415; 80053; 85025

== ENCOUNTER → 2022-06-29 | Outpatient (CLI) | payer MEDICARE, OTHER, SELFPAY ==
[2022-06-29 13:22] LABS: Absolute Lymphocyte Count 1.66 X10^3/uL (0.83-4.51); Absolute Neutrophil Count 1.7 X10^3/uL (2.0-7.7); Basophil# 0.08 X10^3/uL; Basophil% 1.9 % (0-1); Eosinophil# 0.11 X10^3/uL; Eosinophils% 2.7 % (0-5); Hematocrit 43.7 % (37-47); Hemoglobin 14.2 g/dL (12.0-15.0); Lymphocyte # 1.66 X10^3/ul (0.83-4.51); Lymphocyte % 40.4 % (19-41); Mean Corp Hgb Conc 32.5 g/dL (32-36); Mean Corpuscular Hgb 33.6 pg (27.0-32.0); Mean Corpuscular Volume 103.3 fL (81-99); Mean Platelet Vol. 9.8 fl (6.2-12.0); Monocyte# 0.56 X10^3/uL; Monocyte% 13.6 % (0-10); NRBC Flagged by Analyzer 0 % (0-5); Neutrophil # 1.69 X10^3/uL (2.7-7.7); Neutrophil % 41.2 % (47-70); Platelet Count 240 K/mm3 (150-450); RBC Distribution Width CV 13.4 % (11.6-14.6); RBC Distribution Width SD 50.9 fl (35.1-43.9); Red Blood Count 4.23 M/mm3 (4.2-5.4); White Blood Count 4.1 K/mm3 (4.4-11.0)
[2022-06-29 13:37] LABS: Vitamin D,25 Hydroxy 42.1 ng/mL
[2022-06-29 14:01] LABS: ALB/GLOB Ratio 0.8 RATIO (0.9-2.4); AST(SGOT) 18 U/L (15-37); Alanine Aminotransfer ALT/SGPT 20 U/L (13-56); Albumin, Serum 3.3 g/dL (3.2-5.0); Alkaline Phosphatase 57 U/L (45-117); Anion Gap 7 (5-15); BUN 14 mg/dL (7-18); BUN/Creat Ratio 17.1 RATIO (10-20); Calcium,Total 8.8 mg/dL (8.5-10.1); Chloride 108 mmol/L (98-107); Cholesterol 198 mg/dL (200); Creatinine, Serum 0.82 mg/dL (0.55-1.02); EST Glomerular Filtration Rate 73 mL/min (>60); Est Glom Filt Rate - Afr Amer 88 mL/min (>60); Globulin 3.9 g/dL (2.2-4.2); Glucose 119 mg/dL (74-106); High Density Lipoprotein 50 mg/dL; Potassium 4.5 mmol/L (3.5-5.1); Protein, Total 7.2 g/dL (6.4-8.2); Sodium Level 138 mmol/L (136-145); Thyroid Stim Hormone (TSH) 0.74 uIU/mL (0.358-3.74); Triglycerides 243 mg/dL; Very Low Density Lipoprotein 49 mg/dL (5-40)
== END | disposition home or self-care (01) ==
LOC: POLAB3 10:15
PROVIDERS: PCP Family Medicine Geriatric Medicine; Visit Provider Family Medicine Geriatric Medicine
DX: E55.9 Vitamin D deficiency, unspecified (principal); I10 Essential (primary) hypertension
CPT/HCPCS: 36415; 80053; 80061; 82306; 84443; 85025

== ENCOUNTER → 2022-08-23 | Outpatient (CLI) | payer MEDICARE, OTHER, SELFPAY ==
[2022-08-23 12:08] LABS: Absolute Neutrophil Count 1.9 X10^3/uL (2.0-7.7); Basophil# 0.07 X10^3/uL; Basophil% 1.7 % (0-1); Eosinophils% 2.4 % (0-5); Hematocrit 42.3 % (37-47); Hemoglobin 13.9 g/dL (12.0-15.0); Lymphocyte % 38.5 % (19-41); Mean Corp Hgb Conc 32.9 g/dL (32-36); Mean Corpuscular Hgb 33.2 pg (27.0-32.0); Mean Platelet Vol. 9.5 fl (6.2-12.0); Monocyte# 0.49 X10^3/uL; Monocyte% 11.8 % (0-10); NRBC Flagged by Analyzer 0 % (0-5); Neutrophil # 1.88 X10^3/uL (2.7-7.7); Neutrophil % 45.1 % (47-70); Platelet Count 222 K/mm3 (150-450); RBC Distribution Width CV 12.8 % (11.6-14.6); Red Blood Count 4.19 M/mm3 (4.2-5.4); White Blood Count 4.2 K/mm3 (4.4-11.0)
[2022-08-23 12:37] LABS: ALB/GLOB Ratio 0.9 RATIO (0.9-2.4); AST(SGOT) 21 U/L (15-37); Alanine Aminotransfer ALT/SGPT 19 U/L (13-56); Albumin, Serum 3.4 g/dL (3.2-5.0); Alkaline Phosphatase 50 U/L (45-117); Anion Gap 5 (5-15); BUN 13 mg/dL (7-18); Calcium,Total 8.6 mg/dL (8.5-10.1); Chloride 108 mmol/L (98-107); Creatinine, Serum 0.81 mg/dL (0.55-1.02); EST Glomerular Filtration Rate 73 mL/min (>60); Est Glom Filt Rate - Afr Amer 89 mL/min (>60); Globulin 3.7 g/dL (2.2-4.2); Glucose 99 mg/dL (74-106); Protein, Total 7.1 g/dL (6.4-8.2); Sodium Level 138 mmol/L (136-145)
== END | disposition home or self-care (01) ==
LOC: MTLAB 09:50
PROVIDERS: PCP Family Medicine Geriatric Medicine; Referring Provider Internal Medicine Rheumatology; Visit Provider Internal Medicine Rheumatology
DX: M06.4 Inflammatory polyarthropathy (principal); Z79.899 Other long term (current) drug therapy
CPT/HCPCS: 36415; 80053; 85025

== ENCOUNTER → 2022-09-14 | Outpatient (CLI) | payer MEDICARE, OTHER, SELFPAY ==
[2022-09-14 17:14] LABS: Absolute Neutrophil Count 2.3 X10^3/uL (2.0-7.7); Basophil# 0.05 X10^3/uL; Eosinophil# 0.07 X10^3/uL; Eosinophils% 1.4 % (0-5); Hematocrit 42.7 % (37-47); Hemoglobin 14.2 g/dL (12.0-15.0); Lymphocyte % 36.9 % (19-41); Mean Corp Hgb Conc 33.3 g/dL (32-36); Mean Corpuscular Hgb 33.2 pg (27.0-32.0); Mean Corpuscular Volume 99.8 fL (81-99); Mean Platelet Vol. 9.7 fl (6.2-12.0); Monocyte# 0.63 X10^3/uL; Monocyte% 12.9 % (0-10); NRBC Flagged by Analyzer 0 % (0-5); Neutrophil # 2.27 X10^3/uL (2.7-7.7); Neutrophil % 46.6 % (47-70); Platelet Count 238 K/mm3 (150-450); RBC Distribution Width CV 12.8 % (11.6-14.6); RBC Distribution Width SD 46.3 fl (35.1-43.9); Red Blood Count 4.28 M/mm3 (4.2-5.4); White Blood Count 4.9 K/mm3 (4.4-11.0)
[2022-09-14 17:27] LABS: Vitamin D,25 Hydroxy 42.9 ng/mL
[2022-09-14 17:50] LABS: AST(SGOT) 20 U/L (15-37); Alanine Aminotransfer ALT/SGPT 21 U/L (13-56); Albumin, Serum 3.6 g/dL (3.2-5.0); Alkaline Phosphatase 52 U/L (45-117); Anion Gap 7 (5-15); BUN 15 mg/dL (7-18); BUN/Creat Ratio 16.9 RATIO (10-20); Calcium,Total 8.9 mg/dL (8.5-10.1); Chloride 107 mmol/L (98-107); Cholesterol 203 mg/dL (200); Creatinine, Serum 0.89 mg/dL (0.55-1.02); EST Glomerular Filtration Rate 66 mL/min (>60); Est Glom Filt Rate - Afr Amer 80 mL/min (>60); Globulin 3.6 g/dL (2.2-4.2); Glucose 85 mg/dL (74-106); High Density Lipoprotein 51 mg/dL; Potassium 3.8 mmol/L (3.5-5.1); Protein, Total 7.2 g/dL (6.4-8.2); Sodium Level 139 mmol/L (136-145); Triglycerides 204 mg/dL; Very Low Density Lipoprotein 41 mg/dL (5-40)
== END | disposition home or self-care (01) ==
PROVIDERS: PCP Family Medicine Geriatric Medicine; Visit Provider Family Medicine Geriatric Medicine
DX: I10 Essential (primary) hypertension (principal); E55.9 Vitamin D deficiency, unspecified
CPT/HCPCS: 36415; 80053; 80061; 82306; 84443; 85025

== ENCOUNTER → 2022-09-23 10:07 | Outpatient (REF) | payer SELFPAY | LOC: NS 10:07 | PROVIDERS: PCP Family Medicine Geriatric Medicine | DX: Z00.00 Encounter for general adult medical examination without abnormal findings (principal) ==

== ENCOUNTER → 2022-11-15 | Outpatient (CLI) | payer MEDICARE, OTHER, SELFPAY ==
[2022-11-15 12:17] LABS: Absolute Neutrophil Count 2.2 X10^3/uL (2.0-7.7); Basophil# 0.06 X10^3/uL; Basophil% 1.2 % (0-1); Eosinophil# 0.06 X10^3/uL; Eosinophils% 1.2 % (0-5); Hematocrit 44.9 % (37-47); Hemoglobin 14.7 g/dL (12.0-15.0); Lymphocyte % 37.4 % (19-41); Mean Corp Hgb Conc 32.7 g/dL (32-36); Mean Corpuscular Hgb 33.1 pg (27.0-32.0); Mean Corpuscular Volume 101.1 fL (81-99); Mean Platelet Vol. 9.2 fl (6.2-12.0); Monocyte# 0.73 X10^3/uL; Monocyte% 15.2 % (0-10); NRBC Flagged by Analyzer 0 % (0-5); Neutrophil # 2.15 X10^3/uL (2.7-7.7); Neutrophil % 44.8 % (47-70); Platelet Count 240 K/mm3 (150-450); RBC Distribution Width CV 13.5 % (11.6-14.6); RBC Distribution Width SD 49.8 fl (35.1-43.9); Red Blood Count 4.44 M/mm3 (4.2-5.4); White Blood Count 4.8 K/mm3 (4.4-11.0)
[2022-11-15 12:55] LABS: ALB/GLOB Ratio 0.9 RATIO (0.9-2.4); AST(SGOT) 23 U/L (15-37); Alanine Aminotransfer ALT/SGPT 25 U/L (13-56); Albumin, Serum 3.5 g/dL (3.2-5.0); Alkaline Phosphatase 52 U/L (45-117); Anion Gap 7 (5-15); BUN 14 mg/dL (7-18); BUN/Creat Ratio 16.9 RATIO (10-20); Calcium,Total 8.8 mg/dL (8.5-10.1); Chloride 104 mmol/L (98-107); Creatinine, Serum 0.83 mg/dL (0.55-1.02); EST Glomerular Filtration Rate 72 mL/min (>60); Est Glom Filt Rate - Afr Amer 87 mL/min (>60); Globulin 3.9 g/dL (2.2-4.2); Glucose 111 mg/dL (74-106); Potassium 4.1 mmol/L (3.5-5.1); Protein, Total 7.4 g/dL (6.4-8.2); Sodium Level 139 mmol/L (136-145)
== END | disposition home or self-care (01) ==
PROVIDERS: PCP Family Medicine Geriatric Medicine; Referring Provider Internal Medicine Rheumatology; Visit Provider Internal Medicine Rheumatology
DX: M06.4 Inflammatory polyarthropathy (principal); M17.0 Bilateral primary osteoarthritis of knee; M19.041 Primary osteoarthritis, right hand; Z79.899 Other long term (current) drug therapy
CPT/HCPCS: 36415; 80053; 85025

== ENCOUNTER → 2022-12-13 | Outpatient (CLI) | payer MEDICARE, OTHER, SELFPAY ==
--- NOTE | 2022-12-13 16:07 | RAD_ITS ---
EXAM: XR LUMBOSACRAL SPINE, 4 OR 5 VIEWS CLINICAL INDICATION: Radiculopathy, lumbar region TECHNIQUE: Frontal, lateral and bilateral oblique views of the lumbar spine. COMPARISON: No relevant prior studies available. FINDINGS: VERTEBRAE: Mild levoscoliosis centered at the L1-2 level with Maya angle of 10 degrees. No acute fracture or subluxation. DISC SPACES: Multilevel disc space narrowing and moderate vertebral body hypertrophy. GASTROINTESTINAL TRACT: Normal bowel gas pattern. RAD/L/S Spine Min 4 Views IMPRESSION: Diffuse spondylosis. Electronically Signed: Mauricio Chacko MD at 16:27 EST ,
== END | disposition home or self-care (01) ==
LOC: RAD 16:01
PROVIDERS: PCP Family Medicine Geriatric Medicine; Referring Provider Family Medicine Geriatric Medicine; Visit Provider Family Medicine Geriatric Medicine
DX: M54.16 Radiculopathy, lumbar region (principal)
CPT/HCPCS: 72110

== ENCOUNTER → 2023-02-02 | Outpatient (CLI) | payer MEDICARE, OTHER, SELFPAY ==
[2023-02-02 12:47] LABS: Vitamin B12 > 2000 pg/mL (211-911)
== END | disposition home or self-care (01) ==
LOC: PAVLAB 11:46
PROVIDERS: PCP Nurse Practitioner Family; Referring Provider Internal Medicine Critical Care Medicine; Visit Provider Internal Medicine Critical Care Medicine
DX: G47.33 Obstructive sleep apnea (adult) (pediatric) (principal); G47.10 Hypersomnia, unspecified
CPT/HCPCS: 36415; 82607

== ENCOUNTER → 2023-02-09 | Outpatient (CLI) | payer MEDICARE, OTHER, SELFPAY ==
--- OUTSIDE RECORDS SUMMARY | 2023-02-09 10:18 | XMS RPT_ITS | CCD ---
Author Name Unknown Address [address] [place] [address] Organization [facility] Care Team Providers Care General Manager Name Role Phone Ad Mustafa MD Unavailable Megan Meza Unavailable Unavailable Yudith Sharp Unavailable Unavailable Yudith Sharp Unavailable Unavailable Yudith Sharp Unavailable Unavailable Yudith Sharp Unavailable Unavailable JOSH QUINTANILLA MD Primary Care Physician Medications Completed/Discontinued Medications Medication Drug Class(es) Dates Sig (Normalized) Sig (Original) amitriptyline hydrochloride 50 mg oral tablet (14 sources) Tricyclic Antidepressant Start: 03-10-2016 End: 07-15-2016 AMITRIPTYLINE HCL 50 MG TABS One tab daily at bedtime AMITRIPTYLINE HCL [id number] Yudith Sharp cholecalciferol 1000 unt oral tablet (14 sources) Vitamin D Start: 03-23-2016 End: 07-15-2016 take 1 tablet by mouth once daily VITAMIN D3 1000 UNIT TABS One tablet by mouth daily CHOLECALCIFEROL [id number] Yudith Stanton LPN escitalopram 20 mg oral tablet (14 sources) Serotonin Reuptake Inhibitor Start: 03-10-2016 take 1.5 tablets by mouth once daily LEXAPRO 20 MG TABS 1.5 tabs po daily ESCITALOPRAM OXALATE [id number] Yudith Stanton [employer] C[employer]IAN Problems Active Problems Problem Classification Problem Date Documented Date Episodic/Chronic Unclassified (7 sources) Obstructive sleep apnea of adult; Translations: [Obstructive sleep apnea (adult) (pediatric)] Onset: 03-23-2016 03-23-2016 Chronic Unclassified (3 sources) Pre-surgery evaluation ; Translations: [Encounter for other preprocedural examination] Onset: 10-07-2016 10-07-2016 Past or Other Problems Problem Classification Problem Date Documented Da te Episodic/Chronic Deficiency and other anemia (7 sources) Iron deficiency anemia; Translations: [Iron deficiency anemia, unspecified] Onset: 03-23-2016 03-23-2016 Episodic Hemorrhoids (7 sources) External hemorrhoids; Translations: [Residual hemorrhoidal skin tags] Onset: 03-23-2016 03-23-2016 Episodic Unclassified (7 sources) Family history of alcoholism; Translations: [Family history of alcohol abuse and dependence] 03-19-2016 Episodic Results Test Name Value Interpretation Reference Range Facil ity Vital Signs Date Time Vital Sign Value Performing Clinician Facility 10-07-2016 13:13-0400 BMI (Body Mass Index) 38.41 kg/m2 [facility] Work Phone: 10-07-2016 13:13-0400 Body Temperature 98.2 [degF] [facility] Work Phone: 10-07-2016 13:13-0400 BP Diastolic 80 mm[Hg] [facility] Work Phone: 10-07-2016 13:13-0400 BP Systolic 125 mm[Hg] [facility] Work Phone: 10-07-2016 13:13-0400 Height 157.48 cm [facility] Work Phone: 10-07-2016 13:13-0400 Pulse (Heart Rate) 75 /min [facility] Work Phone: 10-07-2016 13:13-0400 Respiratory Rate 18 /min [facility] Work Phone: 10-07-2016 13:13-0400 Weight 95.26 kg [facility] Work Phone: 10-07-2016 13:13-0400 Weight 95.25 kg [facility] Work Phone: 08-23-2016 08:32-0400 BMI (Body Mass Index) 39.5 kg/m2 Yudith Aron [facility] Work Phone: 08-23-2016 08:32-0400 Body Temperature 98.3 [degF] Yudith [facility] Work Phone: 08-23-2016 08:32-0400 BP Diastolic 77 mm[Hg] [facility]udith [facility] Work Phone: 08-23-2016 08:32-0400 BP Systolic 124 mm[Hg] Yudith [facility] Work Phone: 08-23-2016 08:32-0400 Height 157.48 cm Yudith Aron [facility] Work Phone: 08-23-2016 08:32-0400 Pulse (Heart Rate) 82 /min Yudith A[facility] Work Phone: 08-23-2016 08:32-0400 Respiratory Rate 18 /min Yudith Aron [facility] Work Phone: 08-23-2016 08:32-0400 Weight 97.98 kg Yudith Aron [facility] Work Phone: 07-15-2016 12:44-0400 BMI (Body Mass Index) 40.05 kg/m2 [facility] Work Phone: 07-15-2016 12:44-0400 Body Temperature 98.1 [degF] Yudith Aron [facility] Work Phone: 07-15-2016 12:44-0400 BP Diastolic 79 mm[Hg] Yudith [facility] Work Phone: 07-15-2016 12:44-0400 BP Systolic 121 mm[Hg] [facility]udith [facility] Work Phone: 07-15-2016 12:44-0400 Height 157.48 cm Yudith Aron [facility] Work Phone: 07-15-2016 12:44-0400 Pulse (Heart Rate) 69 /min Yudith [facility] Work Phone: 07-15-2016 12:44-0400 Pulse Oximetry 99 % YudithRidley [facility] Work Phone: 07-15-2016 12:44-0400 Respiratory Rate 18 /min Yudith [facility] Work Phone: 07-15-2016 12:44-0400 Weight 99.34 kg YudithRidley [facility] Work Phone: 03-23-2016 06:37-0500 Body Temperature 97.34 [degF] [facility]udithRidley [facility] Work Phone: 03-23-2016 06:37-0500 BSA (Body Surface Area) 1.98 m2 YudithRidley [facility] Work Phone: 03-23-2016 06:37-0500 Height 157.48 cm Yudith [facility] Work Phone: 03-23-2016 06:37-0500 Weight 98.64 kg YudithRidley [facility] Phone: Encounters Encounter Date Encounter Type Care Provider Facility Start: 07-24-2021 End: 07-24-[address] POORNIMA KEITH MD [facility] Procedures Date Procedure Procedure Detail Performing Clinician Start: 04-22-2016 End: 08-19-2016 Follow Up Appt 3 months [facility] Work Phone: Start: 04-07-2016 End: 04-14-2016 CBC W Auto Differential panel - Blood [facility] Work Phone: Start: 04-07-2016 End: 04-14-2016 Iron and Iron binding capacity panel - Serum or Plasma [facility] Work Phone: Start: 03-23-2016 End: 08-19-2016 Follow Up Appt 6 weeks [facility] Work Phone: Plan of Treatment Date Care Activity Detail Author Start: 03-08-2017 End: 03-08-2017 Appointment Appointment [facility] Work Phone: Start: 11-01-2016 End: 11-01-2016 Appointment Appointment [facility] Work Phone: Start: 10-13-2016 End: 10-13-2016 Diagnostic colonoscopy Colonoscopy [facility] [employer] Work Phone: Start: 10-07-2016 End: 10-07-2016 Appointment Appointment [facility] [employer] Work Phone: Start: 08-23-2016 End: 08-23-2016 Appointment Appointment [facility] Work Phone: Start: 08-23-2016 End: 08-23-2016 [facility] B[facility] Work Phone: Start: 08-23-2016 End: 08-23-2016 Follow Up Appt 6 months Follow Up Appt 6 months [facility] Work Phone: Start: 07-15-2016 End: 07-15-2016 [facility] Work Phone: Start: 07-15-2016 End: 07-15-2016 Follow Up Appt 1 month Follow Up Appt 1 month [facility] Work Phone: Start: 04-22-2016 End: 08-19-2016 Follow Up Appt 3 months Follow Up Appt 3 months [facility] Work Phone: Start: 04-07-2016 End: 04-14-2016 CBC W Auto Differential panel - Blood *CBC without Diff [facility] Work Phone: Start: 04-07-2016 End: 04-14-2016 Iron and Iron binding capacity panel - Serum or Plasma *[facility] Iron & Total Iron Binding Capacity [facility] Phone: Start: 03-23-2016 End: 08-19-2016 Follow Up Appt 6 weeks Follow Up Appt 6 weeks [facility] Phone: Patient Education [email or web address] [facility] Phone: Social History Date Type Detail Facility Tobacco smoking status No Smoking Status Entered [facility] Sex Assigned At Female [facility] Progress note 02-27-2021 Note Date & Type Note Facility 02-27-2021 Note HNO ID: [id number] Author: Fantasma Dodd MA Service: ? 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 Encounter closed. Pt identified by name and : NO Outreach Outcome/Action Unable to reach patient: Phone number not valid / voicemail full [employer] message sent Reason for Outreach Attribution: Provider Off-boarding Payer: Payor: MEDICARE / Plan: MEDICARE A AND B / Product Type: Medicare / Care Gap Reviewed:: Annual Wellness visit Breast Cancer screening Flu vaccine Reminder: Reminder note to check Health Maintenance for items below Health Maintenance items due: COVID-19 VACCINE(1) Never done DEPRESSION SCREENING Never done ADVANCE DIRECTIVE DISCUSSION Never done SHINGRIX VACCINE(2 of 3) due on 11/28/2013 MAMMOGRAM due on 10/19/2015 DIABETES SCREEN due on 01/12/2020 INFLUENZA(1) due on 10/08/2020 Message Sent to Practice: NO Navigation Signature: Fantasma Dodd MA February 27, 2021 2:13 PM [facility] Clinical Note 02-26-2021 Note Date & Type Note Facility 02-26-2021 Note Patient Outreach (ANNA TNEMILEE) TINA LINARES ([id number]) 1950 F Date Time Provider Department 02/26/21 FANTASMA DODD During your visit today, we recorded the following information about you: Fantasma Dodd MA 02/27/2021 2:17 PM Signed POPULATION HEALTH NAVIGATION OUTREACH Action/FYI PCP OFF BOARDING OUTREACH Attempt # 1 Spoke with patient , mentioned to contact patient on her cell phone, attempted to reach pt via cell phone, VM was full unable to LM Attempt # 2 Sent [facility] Message. Encounter closed. Pt identified by name and : NO Outreach Outcome/Action Unable to reach patient: Phone number not valid / voicemail full [employer] message sent Reason for Outreach Attribution: Provider Off-boarding Payer: Payor: MEDICARE / Plan: MEDICARE A AND B / Product Type: Medicare / Care Gap Reviewed:: Annual Wellness visit Breast Cancer screening Flu vaccine Reminder: Reminder note to check Health Maintenance for items below Health Maintenance items due: COVID-19 VACCINE(1) Never done DEPRESSION SCREENING Never done ADVANCE DIRECTIVE DISCUSSION Never done SHINGRIX VACCINE(2 of 3) due on 11/28/2013 MAMMOGRAM due on 10/19/2015 DIABETES SCREEN due on 01/12/2020 INFLUENZA(1) due on 10/08/2020 Message Sent to Practice: NO Navigation Signature: Fantasma Dodd MA February 27, 2021 2:13 PM Allergies As of Date: 02/26/2021 Noted Allergy Reaction NO KNOWN DRUG ALLERGIES 10/27/2004 Date Reviewed: 01/25/2017 [facility] KAYLENE Ruiz - Fully Assessed Reason for Visit: Population Health Navigation Outreach [3910] Cmt: Offboarding - Dr Caty RIVAS Prescriptions as of 02/27/2021 - escitalopram oxalate (LEXAPRO) 20 mg tablet Take 1.5 tablets by mouth once daily. - IRON/VITAMIN B COMPLEX (GERITOL ORAL) Take by mouth once daily. - amoxicillin-clavulanic acid (AUGMENTIN) 875-125 mg per tablet Take 1 tablet by mouth twice daily. - escitalopram oxalate (LEXAPRO) 20 mg tablet Take 20 mg by mouth once daily. - conjugated estrogens (PREMARIN) vaginal cream Use 0.5 g vaginally twice a week. - codeine-guaiFENesin (GUAIFENESIN AC) 10-100 mg/5 mL syrup Take 10 mL by mouth four times daily as needed. - melatonin 10 mg tab 1 tablet by mouth taken 3 hrs prior to bedtime - buPROPion XL (WELLBUTRIN XL) 150 mg 24 hr tablet Take 1 tablet by mouth once daily. - omeprazole (PRILOSEC) 20 mg capsule Take 1 capsule by mouth daily before breakfast. 1/2 hr before meal. Problem List As Of Date 02/26/2021 Noted Resolved DYSMETABOLIC SYNDROME X [E88.81] 02/23/2005 DIFFUS CYSTIC MASTOPATHY [N60.19] 02/23/2005 Sprain and strain of unspecified site of knee a*05/10/2007 10/01/2013 Lateral epicondylitis of elbow [M77.10] 05/10/2007 10/01/2013 EXT THROMBOS HEMORRHOID [K64.5] 05/10/2008 Osteoarthritis of Knee [M17.10] 06/17/2009 Psoriasis of scalp [L40.9] 09/25/2012 Depression [F32.A] 10/01/2013 Sleep apnea [G47.30] 10/02/2014 Anxiety and depression [F41.9, F32.A] 10/02/2014 Tendinitis of thumb [M77.8] 08/05/2016 Obesity, Class III, BMI 40-49.9 (morbid obesity*01/25/2017 Encounter Status:Closed by FANTASMA DODD on 02/27/21 [facility] Evaluation + Plan note Note Date & Type Note Facility Evaluation + Plan note No data available for this section [facility] Hospital Discharge instructions Note Date & Type Note Facility Hospital Discharge instructions No data available for this section [facility] Progress note Note Date & Type Note Facility Progress note No data available for this section [facility] Summary Purpose Family History No Family History Records FoundNo Family History Records Found Advance Directives No Advanced Directives Records FoundNo Advanced Directives Records Found Additional Source Comments INFORMATION SOURCE (unrecogn ized section and content) DATE CREATED AUTHOR AUTHOR'S ORGANIZ ATION 07/28/2021 [facility] ([place]) Care Team (unrecognized sect ion and content) Personnel Name: JOSH QUINTANILLA MD Address: [address] [place] [address] FOR RECORDS PERTAINING TO PATIENTS WHO ARE OR HAVE BEEN ENROLLED IN A CHEMICAL DEPENDENCY/SUBSTANCEABUSE PROGRAM, SOME INFORMATION MAY BE OMITTED. This clinical summary was aggregated from multiple sources. Caution should be exercised in using it in the provision of clinical care. This summary normalizes information from multiple sources, and as a consequence, information in this document may materially change the coding, format and clinical context of patient data. In addition, data may be omitted in some cases. CLINICAL DECISIONS SHOULD BE BASED ON THE PRIMARY CLINICAL RECORDS. [facility]. provides no warranty or guarantee of the accuracy or completeness of information in this document.
[2023-02-09 10:51] LABS: Absolute Lymphocyte Count 1.16 X10^3/uL (0.83-4.51); Absolute Neutrophil Count 2.2 X10^3/uL (2.0-7.7); Basophil# 0.04 X10^3/uL; Eosinophil# 0.04 X10^3/uL; Hematocrit 45.2 % (37-47); Hemoglobin 14.9 g/dL (12.0-15.0); Lymphocyte # 1.16 X10^3/ul (0.83-4.51); Lymphocyte % 30.1 % (19-41); Mean Corpuscular Hgb 33.5 pg (27.0-32.0); Mean Corpuscular Volume 101.6 fL (81-99); Mean Platelet Vol. 9.6 fl (6.2-12.0); Monocyte% 10.4 % (0-10); NRBC Flagged by Analyzer 0 % (0-5); Neutrophil # 2.22 X10^3/uL (2.7-7.7); Neutrophil % 57.5 % (47-70); Platelet Count 240 K/mm3 (150-450); RBC Distribution Width CV 13.2 % (11.6-14.6); RBC Distribution Width SD 49.6 fl (35.1-43.9); Red Blood Count 4.45 M/mm3 (4.2-5.4); White Blood Count 3.9 K/mm3 (4.4-11.0)
[2023-02-09 11:19] LABS: ALB/GLOB Ratio 0.8 RATIO (0.9-2.4); AST(SGOT) 20 U/L (15-37); Alanine Aminotransfer ALT/SGPT 22 U/L (13-56); Albumin, Serum 3.4 g/dL (3.2-5.0); Alkaline Phosphatase 53 U/L (45-117); Anion Gap 4 (5-15); BUN 12 mg/dL (7-18); BUN/Creat Ratio 14.5 RATIO (10-20); Calcium,Total 9.1 mg/dL (8.5-10.1); Chloride 105 mmol/L (98-107); Creatinine, Serum 0.83 mg/dL (0.55-1.02); EST Glomerular Filtration Rate 71 mL/min (>60); Est Glom Filt Rate - Afr Amer 86 mL/min (>60); Glucose 96 mg/dL (74-106); Potassium 4.2 mmol/L (3.5-5.1); Protein, Total 7.4 g/dL (6.4-8.2); Sodium Level 137 mmol/L (136-145)
== END | disposition home or self-care (01) ==
PROVIDERS: PCP Nurse Practitioner Family; Referring Provider Internal Medicine Rheumatology; Visit Provider Internal Medicine Rheumatology
DX: M06.4 Inflammatory polyarthropathy (principal); M17.0 Bilateral primary osteoarthritis of knee; M19.041 Primary osteoarthritis, right hand; M19.042 Primary osteoarthritis, left hand; F32.A Depression, unspecified; F41.9 Anxiety disorder, unspecified; K21.9 Gastro-esophageal reflux disease without esophagitis; K59.00 Constipation, unspecified; G47.33 Obstructive sleep apnea (adult) (pediatric); Z79.899 Other long term (current) drug therapy
CPT/HCPCS: 36415; 80053; 85025

== ENCOUNTER → 2023-04-14 | Outpatient (CLI) | payer MEDICARE, OTHER, SELFPAY ==
--- NOTE | 2023-04-14 08:34 | BI_ITS ---
MAMMOGRAPHY - BILATERAL SCREENING 3-D TOMOSYNTHESIS REASON FOR EXAM: Female, 72 years old. SCREENING PERTINENT HISTORY: No significant family history. TECHNIQUE: 2-D mammograms and 3-D Tomosynthesis of the breast (s) were performed. CAD was performed. COMPARISON: 04/12/2022 FINDINGS: The breast composition is heterogeneously dense that can obscure small breast masses. Scattered benign calcifications are seen. No dense spiculated masses or suspicious microcalcifications are identified. No architectural distortion is identified. There is no skin thickening or retraction. There has been no significant change since the prior study. No change of bilateral benign rodlike calcifications. BI/SCRN MAMM (CAD)W/JUSTUS BILAT IMPRESSION: No mammographic signs of malignancy. Routine yearly mammograms recommended. ASSESSMENT CATEGORY: BIRADS Category 2: Benign. A letter regarding these results will be sent to the patient by the facility within 30 days. FOLLOW UP RECOMMENDATION: Yearly follow up mammogram recommended. (A) Approximately 10% of breast cancers are not detected by mammography. A normal mammogram should not delay biopsy of a clinically suspicious abnormality. Electronically Signed: Didier Wu MD at 15:14 EST ,
== END | disposition home or self-care (01) ==
LOC: OPBI 08:32
PROVIDERS: PCP Nurse Practitioner Family; Referring Provider Nurse Practitioner Family; Visit Provider Nurse Practitioner Family
DX: Z12.31 Encounter for screening mammogram for malignant neoplasm of breast (principal)
CPT/HCPCS: 77063; 77067

== ENCOUNTER → 2023-05-03 | Outpatient (CLI) | payer MEDICARE, OTHER, SELFPAY ==
[2023-05-03 10:57] LABS: AST(SGOT) 21 U/L (15-37); Alanine Aminotransfer ALT/SGPT 22 U/L (13-56); Albumin, Serum 3.4 g/dL (3.2-5.0); Alkaline Phosphatase 47 U/L (45-117); Anion Gap 8 (5-15); BUN 12 mg/dL (7-18); Chloride 106 mmol/L (98-107); EST Glomerular Filtration Rate 75 mL/min (>60); Est Glom Filt Rate - Afr Amer 90 mL/min (>60); Globulin 3.5 g/dL (2.2-4.2); Glucose 96 mg/dL (74-106); Protein, Total 6.9 g/dL (6.4-8.2); Sodium Level 139 mmol/L (136-145)
[2023-05-03 12:32] LABS: Absolute Lymphocyte Count 1.31 X10^3/uL (0.83-4.51); Absolute Neutrophil Count 2.3 X10^3/uL (2.0-7.7); Basophil# 0.06 X10^3/uL; Basophil% 1.4 % (0-1); Eosinophil# 0.06 X10^3/uL; Eosinophils% 1.4 % (0-5); Hematocrit 41.5 % (37-47); Hemoglobin 13.7 g/dL (12.0-15.0); Lymphocyte # 1.31 X10^3/ul (0.83-4.51); Lymphocyte % 29.8 % (19-41); Mean Corpuscular Hgb 32.9 pg (27.0-32.0); Mean Corpuscular Volume 99.5 fL (81-99); Mean Platelet Vol. 10.2 fl (6.2-12.0); Monocyte# 0.63 X10^3/uL; Monocyte% 14.4 % (0-10); NRBC Flagged by Analyzer 0 % (0-5); Neutrophil # 2.32 X10^3/uL (2.7-7.7); Neutrophil % 52.8 % (47-70); Platelet Count 229 K/mm3 (150-450); RBC Distribution Width CV 13.1 % (11.6-14.6); RBC Distribution Width SD 47.8 fl (35.1-43.9); Red Blood Count 4.17 M/mm3 (4.2-5.4); White Blood Count 4.4 K/mm3 (4.4-11.0)
== END | disposition home or self-care (01) ==
LOC: MTLAB 08:12
PROVIDERS: PCP Nurse Practitioner Family; Referring Provider Internal Medicine Rheumatology; Visit Provider Internal Medicine Rheumatology
DX: M06.4 Inflammatory polyarthropathy (principal); M17.0 Bilateral primary osteoarthritis of knee; M19.041 Primary osteoarthritis, right hand; F41.9 Anxiety disorder, unspecified; K21.9 Gastro-esophageal reflux disease without esophagitis; K59.00 Constipation, unspecified; G47.33 Obstructive sleep apnea (adult) (pediatric); Z79.899 Other long term (current) drug therapy
CPT/HCPCS: 36415; 80053; 85025

== ENCOUNTER → 2023-05-11 | Outpatient (CLI) | payer MEDICARE, OTHER, SELFPAY ==
--- NOTE | 2023-05-11 10:34 | BD_ITS ---
STUDY: DUAL ENERGY X-RAY ABSORPTIOMETRY / DXA REASON FOR EXAM: Female, 72 years old. M810 TECHNIQUE: Bone Mineral Density (BMD) measurements of lumbar spine and bilateral hips were obtained. COMPARISON: None. FINDINGS: Lumbar Spine (L1-L4): g/cm2 (0.766) / T-score (-2.6) / Z-score (-0.2) Findings are suggestive of osteoporosis with a high fracture risk. Left Femur Total: g/cm2 (0.808) / T-score (-1.1) / Z-score (0.7) Left Femoral Neck: g/cm2 (0.618) / T-score (-2.1) / Z-score (0.0) Right Femur Total: g/cm2 (0.773) / T-score (-1.4) / Z-score (0.4) Right Femoral Neck: g/cm2 (0.597) / T-score (-2.3) / Z-score (-0.2) BD/Dexa Bone Density Study IMPRESSION: The patient is considered osteoporotic as outlined below according to World Jeffery Organization (WHO) criteria with a high fracture risk. Reference Information: The T-score is the number of standard deviations above or below the standard which is normal for young adults at their peak bone mineral density. The World Health Organization (WHO) interprets the T-scores as follows: Above -1 Normal bone density Between -1 and -2.5 Osteopenia Equal to / or below -2.5 Osteoporosis As a practical clinical guideline, osteopenia may be graded as follows: Mild -1 through -1.5 Moderate -1.6 through -2.0 Severe -2.1 through -2.4 The Z-score is the number of standard deviations above or below age-matched controls. A Z-score of less than -1.5 would be considered abnormal. References: 1. NIH Osteoporosis and Related Bone Diseases www osteo.org 2. International Society for Clinical Densitometry www iscd.org 3. National Osteoporosis Foundation www nof.org Electronically Signed: Tyrell Kuhn MD at 19:15 EDT ,
== END | disposition home or self-care (01) ==
LOC: OPBD 10:30
PROVIDERS: PCP Nurse Practitioner Family; Referring Provider Nurse Practitioner Family; Visit Provider Nurse Practitioner Family
DX: M81.0 Age-related osteoporosis without current pathological fracture (principal)
CPT/HCPCS: 77080

== ENCOUNTER → 2023-07-27 | Outpatient (CLI) | payer MEDICARE, OTHER, SELFPAY ==
[2023-07-27 12:21] LABS: Absolute Lymphocyte Count 1.41 X10^3/uL (0.83-4.51); Absolute Neutrophil Count 1.9 X10^3/uL (2.0-7.7); Basophil# 0.06 X10^3/uL; Basophil% 1.5 % (0-1); Eosinophil# 0.06 X10^3/uL; Eosinophils% 1.5 % (0-5); Hematocrit 41.6 % (37-47); Lymphocyte # 1.41 X10^3/ul (0.83-4.51); Lymphocyte % 35.8 % (19-41); Mean Corp Hgb Conc 33.7 g/dL (32-36); Mean Corpuscular Hgb 34.2 pg (27.0-32.0); Mean Corpuscular Volume 101.7 fL (81-99); Mean Platelet Vol. 9.8 fl (6.2-12.0); Monocyte# 0.46 X10^3/uL; Monocyte% 11.7 % (0-10); NRBC Flagged by Analyzer 0 % (0-5); Neutrophil # 1.94 X10^3/uL (2.7-7.7); Neutrophil % 49.2 % (47-70); Platelet Count 212 K/mm3 (150-450); RBC Distribution Width CV 13.3 % (11.6-14.6); RBC Distribution Width SD 49.5 fl (35.1-43.9); Red Blood Count 4.09 M/mm3 (4.2-5.4); White Blood Count 3.9 K/mm3 (4.4-11.0)
[2023-07-27 13:11] LABS: ALB/GLOB Ratio 1.1 RATIO (0.9-2.4); AST(SGOT) 21 U/L (15-37); Alanine Aminotransfer ALT/SGPT 21 U/L (13-56); Albumin, Serum 3.5 g/dL (3.2-5.0); Alkaline Phosphatase 47 U/L (45-117); Anion Gap 8 (5-15); BUN 15 mg/dL (7-18); BUN/Creat Ratio 17.5 RATIO (10-20); Calcium,Total 9.2 mg/dL (8.5-10.1); Chloride 107 mmol/L (98-107); Creatinine, Serum 0.86 mg/dL (0.55-1.02); EST Glomerular Filtration Rate 69 mL/min (>60); Est Glom Filt Rate - Afr Amer 83 mL/min (>60); Globulin 3.3 g/dL (2.2-4.2); Glucose 110 mg/dL (74-106); Potassium 4.1 mmol/L (3.5-5.1); Protein, Total 6.8 g/dL (6.4-8.2); Sodium Level 142 mmol/L (136-145)
== END | disposition home or self-care (01) ==
LOC: MTLAB 09:05
PROVIDERS: PCP Nurse Practitioner Family; Referring Provider Internal Medicine Rheumatology; Visit Provider Internal Medicine Rheumatology
DX: M06.4 Inflammatory polyarthropathy (principal); M17.0 Bilateral primary osteoarthritis of knee; Z79.899 Other long term (current) drug therapy
CPT/HCPCS: 36415; 80053; 85025

== ENCOUNTER → 2023-10-25 | Outpatient (CLI) | payer MEDICARE, OTHER, SELFPAY ==
[2023-10-25 12:14] LABS: Absolute Lymphocyte Count 1.42 X10^3/uL (0.83-4.51); Basophil# 0.06 X10^3/uL; Basophil% 1.5 % (0-1); Eosinophil# 0.08 X10^3/uL; Eosinophils% 2.1 % (0-5); Hematocrit 40.7 % (37-47); Hemoglobin 13.7 g/dL (12.0-15.0); Lymphocyte # 1.42 X10^3/ul (0.83-4.51); Lymphocyte % 36.4 % (19-41); Mean Corp Hgb Conc 33.7 g/dL (32-36); Mean Corpuscular Hgb 34.1 pg (27.0-32.0); Mean Corpuscular Volume 101.2 fL (81-99); Mean Platelet Vol. 9.6 fl (6.2-12.0); Monocyte# 0.38 X10^3/uL; Monocyte% 9.7 % (0-10); NRBC Flagged by Analyzer 0 % (0-5); Neutrophil # 1.95 X10^3/uL (2.7-7.7); Platelet Count 206 K/mm3 (150-450); RBC Distribution Width CV 13.2 % (11.6-14.6); RBC Distribution Width SD 49.1 fl (35.1-43.9); Red Blood Count 4.02 M/mm3 (4.2-5.4); White Blood Count 3.9 K/mm3 (4.4-11.0)
[2023-10-25 13:12] LABS: AST(SGOT) 17 U/L (15-37); Alanine Aminotransfer ALT/SGPT 22 U/L (13-56); Albumin, Serum 3.3 g/dL (3.2-5.0); Alkaline Phosphatase 39 U/L (45-117); Anion Gap 5 (5-15); BUN 13 mg/dL (7-18); BUN/Creat Ratio 13.4 RATIO (10-20); Calcium,Total 9.1 mg/dL (8.5-10.1); Chloride 106 mmol/L (98-107); Creatinine, Serum 0.97 mg/dL (0.55-1.02); EST Glomerular Filtration Rate 59 mL/min (>60); Est Glom Filt Rate - Afr Amer 72 mL/min (>60); Globulin 3.4 g/dL (2.2-4.2); Glucose 120 mg/dL (74-106); Protein, Total 6.7 g/dL (6.4-8.2); Sodium Level 138 mmol/L (136-145)
== END | disposition home or self-care (01) ==
LOC: MTLAB 09:47
PROVIDERS: PCP Nurse Practitioner Family; Referring Provider Internal Medicine Rheumatology; Visit Provider Internal Medicine Rheumatology
DX: M06.4 Inflammatory polyarthropathy (principal); M17.0 Bilateral primary osteoarthritis of knee; M19.041 Primary osteoarthritis, right hand; M19.042 Primary osteoarthritis, left hand; Z79.899 Other long term (current) drug therapy
CPT/HCPCS: 36415; 80053; 85025

== ENCOUNTER → 2023-11-02 | Outpatient (CLI) | payer MEDICARE, OTHER, SELFPAY ==
--- NOTE | 2023-11-02 12:45 | RAD_ITS ---
STUDY: X-RAY - LEFT SHOULDER REASON FOR EXAM: Female, 73 years old. Pain. TECHNIQUE: 4 view(s) of the shoulder. COMPARISON: Chest x-ray dated January 19, 2017 showing a portion of the proximal left humerus. FINDINGS: Osteopenia. Mild arthrosis of the glenohumeral joint. Mild arthrosis of the AC joint. Normal variant. Cartilaginous lesion in the left humeral metaphysis and diaphysis compatible with enchondroma. Less likely, bone infarct can cause this appearance. Normal soft tissues. Normal visualized pulmonary apex. RAD/Shoulder min 2 Views IMPRESSION: Osteopenia, osteoarthritic changes and left proximal humeral enchondroma of which a portion of this was noted back in January 2017 on the chest x-ray. No aggressive features. Electronically Signed: Lex Melchor MD at 13:12 EDT ,
== END | disposition home or self-care (01) ==
LOC: RAD 12:44
PROVIDERS: PCP Nurse Practitioner Family; Referring Provider Anesthesiology; Visit Provider Anesthesiology
DX: M25.512 Pain in left shoulder (principal)
CPT/HCPCS: 73030

== ENCOUNTER → 2024-04-16 | Outpatient (CLI) | payer MEDICARE, OTHER, SELFPAY ==
--- NOTE | 2024-04-16 11:52 | BI_ITS ---
PROCEDURE: SCRN MAMM (CAD)W/JUSTUS BILAT REASON FOR EXAM: F, Age 73 y/o, presents for annual screening mammogram. Family history of breast cancer in her sister at age 71. TECHNIQUE: Bilateral screening digital breast tomosynthesis with 2D and 3D images. Computer aided detection. COMPARISON: 04/14/2023, 04/12/2022 FINDINGS: There are scattered areas of fibroglandular density. The bilateral balbir-like, secretory calcifications have not significantly changed compared to priors dating back to 2022. No suspicious masses, areas of developing architectural distortion, or suspicious calcifications. BI/SCRN MAMM (CAD)W/JUSTUS BILAT IMPRESSION: There is no mammographic evidence of malignancy. BI-RADS 2: BENIGN. RECOMMEND ANNUAL MAMMOGRAPHIC SCREENING. Follow-up code: Routine Follow-up The patient will be notified of the results by letter. Reading Location: [id number]
== END | disposition home or self-care (01) ==
LOC: OPBI 11:49
PROVIDERS: PCP Nurse Practitioner Family; Referring Provider Nurse Practitioner Family; Visit Provider Nurse Practitioner Family
DX: Z12.31 Encounter for screening mammogram for malignant neoplasm of breast (principal)
CPT/HCPCS: 77063; 77067

== ENCOUNTER → 2024-04-25 | Outpatient (CLI) | payer MEDICARE, OTHER, SELFPAY ==
[2024-04-25 12:26] LABS: Absolute Lymphocyte Count 1.23 X10^3/uL (0.83-4.51); Absolute Neutrophil Count 2.6 X10^3/uL (2.0-7.7); Basophil# 0.07 X10^3/uL; Basophil% 1.5 % (0-1); Eosinophil# 0.09 X10^3/uL; Hematocrit 43.4 % (37-47); Hemoglobin 15.2 g/dL (12.0-15.0); Lymphocyte # 1.23 X10^3/ul (0.83-4.51); Lymphocyte % 27.2 % (19-41); Mean Corpuscular Hgb 35.2 pg (27.0-32.0); Mean Corpuscular Volume 100.5 fL (81-99); Mean Platelet Vol. 9.7 fl (6.2-12.0); Monocyte# 0.54 X10^3/uL; Monocyte% 11.9 % (0-10); NRBC Flagged by Analyzer 0 % (0-5); Neutrophil # 2.58 X10^3/uL (2.7-7.7); Platelet Count 250 K/mm3 (150-450); RBC Distribution Width CV 12.8 % (11.6-14.6); Red Blood Count 4.32 M/mm3 (4.2-5.4); White Blood Count 4.5 K/mm3 (4.4-11.0)
[2024-04-25 12:57] LABS: ALB/GLOB Ratio 1.3 RATIO (0.9-2.4); AST(SGOT) 23 U/L (<=31); Alanine Aminotransfer ALT/SGPT 14 U/L (<=34); Albumin, Serum 4.2 g/dL (3.4-4.8); Alkaline Phosphatase 47 U/L (35-104); Anion Gap 13 (5-15); BUN 11 mg/dL (4-19); BUN/Creat Ratio 15.7 RATIO (10-20); Calcium,Total 9.3 mg/dL (7.6-11.0); Carbon Dioxide 24.1 mmol/L (21.0-32.0); Chloride 103 mmol/L (98-108); Cholesterol 184 mg/dL (<=200); EST Glomerular Filtration Rate 90 (>60); Globulin 3.2 g/dL (2.2-4.2); Glucose 106 mg/dL (70-99); High Density Lipoprotein 65 mg/dL; Low Density Lipoprotein Calc. 86 mg/dL; Protein, Total 7.4 g/dL (5.9-8.4); Sodium Level 140 mmol/L (133-145); Triglycerides 166 mg/dL; Very Low Density Lipoprotein 33 mg/dL (5-40); cholesterol:hdl ratio screen 2.84
== END | disposition home or self-care (01) ==
LOC: BFHLAB 10:53
PROVIDERS: PCP Nurse Practitioner Family; Visit Provider Nurse Practitioner Family
DX: I10 Essential (primary) hypertension (principal); E78.5 Hyperlipidemia, unspecified
CPT/HCPCS: 36415; 80053; 80061; 85025

== ENCOUNTER → 2024-09-03 | Outpatient (CLI) | payer MEDICARE, OTHER, SELFPAY | END | disposition home or self-care (01) | LOC: LABSPEC 15:41 | PROVIDERS: PCP Nurse Practitioner Family; Referring Provider Nurse Practitioner Family; Visit Provider Nurse Practitioner Family | DX: N39.0 Urinary tract infection, site not specified (principal) | CPT/HCPCS: 87077; 87086; 87088; 87186 ==